=== PATIENT | male | born 1955 | race Caucasian/White ===

== ENCOUNTER 2017-03-18 05:56 | Emergency (ER) | payer BC ==
[2017-03-18 06:10] VITALS: RESP 18
[2017-03-18] MEDS ORDERED: SODIUM CHLORIDE 0.9% 500 ML IV STA (06:19)
[2017-03-18] MEDS ORDERED: SODIUM CHLORIDE 0.9% 1,000 ML IV STA ×2 (06:19)
[2017-03-18] MEDS ORDERED: KETOROLAC 30 MG/ML 1 ML VIAL IVP STA (06:19)
[2017-03-18] MEDS ORDERED: MORPHINE SULFATE 10 MG/ML SYRINGE IV STA (06:19)
--- NOTE | 2017-03-18 06:54 | ED ---
General Adult HPI - General Chief complaint: Abdominal Pain Stated complaint: Male Time Seen by Provider: 03/18/17 06:19 Source: patient, RN notes reviewed, old records reviewed Mode of arrival: ambulatory Limitations: no limitations - History of Present Illness Initial comments: This is a 7-year-old male to the ER for evaluation of severe 5 pain. Left- sided flank pain or groin pain radiating to storeroom area. Patient also admits to being blood. Patient has no prior history of similar complaints. No trauma no fever. Patient has medical history of high cholesterol, no medical complaints. No blood thinners. No trauma. Patient denies any other bowel pain no nausea or vomiting. Patient states is the worst pain of his life. This started just prior to arrival sudden onset - Related Data Home Medications Medication Instructions Recorded Confirmed Acetaminophen [Tylenol] 1,000 - 1,500 mg PO QAM 03/18/17 03/18/17 [facility] 1 tab PO DAILY 03/18/17 03/18/17 Previous Rx's Medication Instructions Recorded Ciprofloxacin HCl [Cipro] 500 mg PO Q12HR #20 tablet 03/18/17 HYDROcodone/APAP 5-325MG [[place] 1 tab PO Q6HR PRN #30 tab 03/18/17 5-325] Ondansetron Odt [Zofran ODT] 4 mg PO Q8HR PRN #30 tab 03/18/17 metroNIDAZOLE [Flagyl] 500 mg PO TID #30 tab 03/18/17 Allergies Allergy/AdvReac Type Severity Reaction Status Date / Time No Known Allergies Allergy Verified 03/18/17 07:13 Review of Systems ROS Statement: Those systems with pertinent positive or pertinent negative responses have been documented in the HPI. ROS Other: All systems not noted in ROS Statement are negative. Past Medical History Past Medical History: Hyperlipidemia History of Any Multi-Drug Resistant Organisms: None Reported Past Surgical History: Orthopedic Surgery Additional Past Surgical History / Comment(s): Shoulder surgery, knee surgery Past Psychological History: No Psychological Hx Reported Smoking Status: Current every day smoker Past Alcohol Use History: None Reported Past Drug Use History: None Reported General Exam Limitations: no limitations General appearance: alert, in no apparent distress Head exam: Present: atraumatic, normocephalic, normal inspection Eye exam: Present: normal appearance, PERRL, EOMI. Absent: scleral icterus, conjunctival injection, periorbital swelling ENT exam: Present: normal exam, mucous membranes moist Neck exam: Present: normal inspection. Absent: tenderness, meningismus, lymphadenopathy Respiratory exam: Present: normal lung sounds bilaterally. Absent: respiratory distress, wheezes, rales, rhonchi, stridor Cardiovascular Exam: Present: regular rate, normal rhythm, normal heart sounds. Absent: systolic murmur, diastolic murmur, rubs, gallop, clicks GI/Abdominal exam: Present: soft, normal bowel sounds. Absent: distended, tenderness, guarding, rebound, rigid Extremities exam: Present: normal inspection, full ROM, normal capillary refill. Absent: tenderness, pedal edema, joint swelling, calf tenderness Back exam: Present: normal inspection Neurological exam: Present: alert, oriented X3, CN II-XII intact Psychiatric exam: Present: normal affect, normal mood Skin exam: Present: warm, dry, intact, normal color. Absent: rash Course Vital Signs 03/18/17 03/18/17 06:05 07:55 Temperature 97.8 F 98.8 F Pulse Rate 98 86 Respiratory 18 18 Rate Blood Pressure 172/106 132/73 O2 Sat by Pulse 98 97 Oximetry Medical Decision Making - Medical Decision Making 61 male the ER with flank pain without rating to groin. Positive diverticulitis passed kidney stone. Patient be treated with pain control antibiotics and decrease in diet, patient admitted for adequate pain control states he feels long can be discharged home - Lab Data Result diagrams: 03/18/17 06:46 03/18/17 06:46 Lab Results 03/18/17 03/18/17 03/18/17 Range/Units 06:11 06:46 06:46 WBC 16.7 H (3.8-10.6) k/uL RBC 5.25 (4.30-5.90) m/uL Hgb 15.9 (13.0-17.5) gm/dL Hct 47.6 (39.0-53.0) % MCV 90.6 (80.0-100.0) fL MCH 30.3 (25.0-35.0) pg MCHC 33.5 (31.0-37.0) g/dL RDW 12.8 (11.5-15.5) % Plt Count 246 (150-450) k/uL Neutrophils % 84 % Lymphocytes % 7 % Monocytes % 6 % Eosinophils % 2 % Basophils % 0 % Neutrophils # 14.1 H (1.3-7.7) k/uL Lymphocytes # 1.1 (1.0-4.8) k/uL Monocytes # 1.0 (0-1.0) k/uL Eosinophils # 0.4 (0-0.7) k/uL Basophils # 0.1 (0-0.2) k/uL Sodium 141 (137-145) mmol/L Potassium 4.0 (3.5-5.1) mmol/L Chloride 105 (98-107) mmol/L Carbon Dioxide 27 (22-30) mmol/L Anion Gap 9 mmol/L BUN 9 (9-20) mg/dL Creatinine 1.10 (0.66-1.25) mg/dL Est GFR (MDRD) Af Amer >60 (>60 ml/min/1.73 sqM) Est GFR (MDRD) Non-Af >60 (>60 ml/min/1.73 sqM) Glucose 114 H (74-99) mg/dL Calcium 10.0 (8.4-10.2) mg/dL Total Bilirubin 0.6 (0.2-1.3) mg/dL AST 37 (17-59) U/L ALT 66 (21-72) U/L Alkaline Phosphatase 96 (38-126) U/L Total Protein 7.8 (6.3-8.2) g/dL Albumin 4.8 (3.5-5.0) g/dL Amylase 46 (30-110) U/L Lipase 105 (23-300) U/L Urine Color Dark Red Urine Appearance Turbid (Clear) Urine pH 5.5 (5.0-8.0) Ur Specific [place] 1.016 (1.001-1.035) Urine Protein 2+ H (Negative) Urine Glucose (UA) Negative (Negative) Urine Ketones Negative (Negative) Urine Blood Large H (Negative) Urine Nitrite Negative (Negative) Urine Bilirubin Negative (Negative) Urine Urobilinogen <2.0 (<2.0) mg/dL Ur Leukocyte Esterase Large H (Negative) Urine RBC >182 H (0-5) /hpf Urine WBC >182 H (0-5) /hpf - Radiology Data Radiology results: report reviewed (CT abdomen and pelvis was positive colitis) , image reviewed Disposition Clinical Impression: Abdominal pain, Diverticulitis, Calculus of left kidney Disposition: HOME SELF-CARE Condition: Good Instructions: Diverticulitis (ED) Prescriptions: Ciprofloxacin HCl [Cipro] 500 mg PO Q12HR #20 tablet HYDROcodone/APAP 5-325MG [[place] 5-325] 1 tab PO Q6HR PRN #30 tab PRN Reason: Pain metroNIDAZOLE [Flagyl] 500 mg PO TID #30 tab Ondansetron Odt [Zofran ODT] 4 mg PO Q8HR PRN #30 tab PRN Reason: nausea/vomiting Referrals: David Murphy MD [Primary Care Provider] - 1-2 days Nestor Glez MD [STAFF PHYSICIAN] - 1-2 days
[2017-03-18 06:56] LABS: Basophils # (A) 0.1 k/uL (0-0.2); Basophils % (A) 0 %; CH 31.2; CHCM 34.5; Eosinophils # (A) 0.4 k/uL (0-0.7); Eosinophils % (A) 2 %; HCT 47.6 % (39.0-53.0); HDW 2.54; HGB 15.9 gm/dL (13.0-17.5); Luc # (Auto) 0.14; Luc % (Auto) 1; Lymphocytes # (A) 1.1 k/uL (1.0-4.8); Lymphocytes % (A) 7 %; MCH 30.3 pg (25.0-35.0); MCHC 33.5 g/dL (31.0-37.0); MCV 90.6 fL (80.0-100.0); Mean Platelet Volume 7.2; Monocytes % (A) 6 %; Neutrophils # (A) 14.1 k/uL (1.3-7.7); Neutrophils % (A) 84 %; RBC 5.25 m/uL (4.30-5.90); RDW 12.8 % (11.5-15.5); WBC 16.7 k/uL (3.8-10.6); WBC (Perox) 15.72
[2017-03-18 07:00] LABS: Appearance,Urine Turbid (Clear); Bilirubin,Urine Negative (Negative); Glucose,Urine (UA) Negative (Negative); Ketones,Urine Negative (Negative); Leukocyte Esterase,Urine Large (Negative); Nitrite,Urine Negative (Negative); PH, Urine 5.5 (5.0-8.0); Particle Count 15719; Protein,Urine 2+ (Negative); RBC,Urine >182 /hpf (0-5); Specific Gravity,Urine 1.016 (1.001-1.035); UA Billing (MACRO vs. MICRO) MICRO; Urobilinogen,Urine <2.0 mg/dL (<2.0); WBC,Urine >182 /hpf (0-5)
--- NOTE | 2017-03-18 07:38 | CT ---
EXAMINATION TYPE: CT abdomen pelvis wo con DATE OF EXAM: 03/18/2017 COMPARISON: NONE HISTORY: gross hematuria, pelvic pain CT DLP: 1129.9 mGycm Automated exposure control for dose reduction was used. TECHNIQUE: Helical acquisition of images was performed from the lung bases through the pelvis. FINDINGS: LUNG BASES: No significant abnormality is appreciated. LIVER/GB: Unremarkable unenhanced morphology. No cholelithiasis. PANCREAS: No significant abnormality is seen. No ductal dilatation. SPLEEN: No significant abnormality is seen. No splenic enlargement. ADRENALS: No significant abnormality is seen. KIDNEYS: There is a macrolobulated contour of the renal parenchyma with few areas of cortical retract ion from prior scarring. More rounded lobulated possible renal lesion within the anterior left upper pole measuring approximately 1.3 cm is ill-defined given the lack of intravenous contrast. There is n o evidence of nephrolithiasis or hydronephrosis within either kidney. No ureteral calculi or hydroure ter. Urinary bladder is decompressed. No urethral calculi its visualized portions. FREE AIR: No free air is visualized RETROPERITONEAL ADENOPATHY: None visualized URINARY BLADDER: Decompressed without calculi. PELVIC ADENOPATHY: None visualized. OSSEOUS STRUCTURES: Mild multilevel degenerative change of the lumbosacral spine is noted. BOWEL: Short segment bowel wall thickening and mild pericolonic fat stranding abutting the lateral co nal fascia is seen of the descending colon just distal to the splenic flexure. No evidence of free ai r or free fluid. Numerous other sigmoid and descending colonic diverticula are seen without pericolon ic fat stranding. No surrounding fluid collection to suggest abscess is seen. IMPRESSION: 1. ACUTE DESCENDING COLONIC DIVERTICULITIS WITHOUT ABSCESS OR FREE AIR. 2. NO EVIDENCE OF NEPHROLITHIASIS, HYDRONEPHROSIS OR OBSTRUCTIVE UROPATHY. 3. POSSIBLE LEFT UPPER POLE ANTERIOR CORTICALLY-BASED PARTIALLY EXOPHYTIC LEFT RENAL LESION MEASURING APPROXIMATELY 1.3 CM, HOWEVER THERE IS A MACROLOBULATED CONTOUR OF BOTH KIDNEYS AND THIS COULD BE A PSEUDOLESION IT IS INCOMPLETELY CHARACTERIZED WITHOUT CONTRAST. RENAL ULTRASOUND OR DYNAMIC ENHANC ED CT COULD BE PERFORMED FOR FURTHER EVALUATION.
[2017-03-18] MEDS ORDERED: ONDANSETRON 4 MG/2 ML VIAL IVP STA (07:43)
[2017-03-18] MEDS ORDERED: PANTOPRAZOLE 40 MG/10 ML VIAL IVP STA (07:43)
[2017-03-18] MEDS ORDERED: CIPROFLOXACIN HCL 500 MG TAB PO STA (07:43)
[2017-03-18] MEDS ORDERED: metroNIDAZOLE 500 MG TAB PO STA (07:43)
[2017-03-18 07:45] LABS: Glucose 114 mg/dL (74-99); Total Protein 7.8 g/dL (6.3-8.2)
[2017-03-18 07:48] LABS: ALT 66 U/L (21-72); AST 37 U/L (17-59); Alkaline Phosphatase 96 U/L (38-126); Amylase 46 U/L (30-110); Anion Gap 9 mmol/L; Blood Urea Nitrogen 9 mg/dL (9-20); Carbon Dioxide 27 mmol/L (22-30); Chloride 105 mmol/L (98-107); Non-African American GFR(MDRD) >60 (>60 ml/min/1.73 sqM); Sodium 141 mmol/L (137-145); Total Bilirubin 0.6 mg/dL (0.2-1.3)
[2017-03-18 07:56] VITALS: BP 132/73; PULSE 86; TEMP 98.8
--- NOTE | 2017-03-18 07:58 | XR ---
EXAMINATION TYPE: XR KUB DATE OF EXAM: 03/18/2017 7:30 AM CLINICAL HISTORY: Left lower quadrant abdominal pain. TECHNIQUE: Single supine KUB image of the abdomen is obtained. COMPARISON: None. FINDINGS: Scattered gas is seen in non-distended small bowel loops. Few air-fluid levels within the r ight lower quadrant are located within nondilated bowel and are within physiologic number. Gas and fe waleska material is seen in non-distended colon. There is no abnormal calcification appreciated. The lung bases are clear and the osseous structures are intact. No pneumoperitoneum. IMPRESSION: Nonobstructive bowel gas pattern.
== END 2017-03-18 07:56 | disposition home or self-care (01) ==
LOC: SUPCPDRO 05:56 → EC 05:56
DX: K57.32 Diverticulitis of large intestine without perforation or abscess without bleeding (principal); N20.0 Calculus of kidney; F17.200 Nicotine dependence, unspecified, uncomplicated; Z79.899 Other long term (current) drug therapy
CPT/HCPCS: 36415; 80053; 82150; 83690; 85025; 81001; 87086; 74000; 74176; 99285; 96374; 96375; 96361; J2270; J1885; 87077; 87186

== ENCOUNTER → 2017-06-11 | Outpatient (CLI) | payer BC ==
--- NOTE | 2017-06-11 16:13 | CT ---
EXAMINATION TYPE: CT abdomen pelvis w con DATE OF EXAM: 06/11/2017 COMPARISON: 03/18/2017 HISTORY: Colon cancer CT DLP: 1525.9 mGycm CONTRAST: CT scan of the abdomen and pelvis is performed with Oral Contrast and with IV Contrast, patient injec lance with 100 mL of Omnipaque 300. FINDINGS: LUNG BASES-: No visible nodule. No infiltrate. LIVER/GB: No calcified gallstones. Hepatic steatosis noted. No space occupying hepatic lesion. Bhavesh iary tree is of normal caliber. PANCREAS: No inflammation. No distinct mass. SPLEEN: No splenic enlargement. No lesion seen. ADRENALS: No nodule. No thickening. KIDNEYS/BLADDER: No hydronephrosis. No nephrolithiasis. No distinct renal mass. Urinary bladder g rossly unremarkable. BOWEL: Persistent wall thickening involving the proximal descending colon. Recurrent neoplasm is not excluded. Direct visualization is advised. The appendix is not clearly visualized. Remaining Normal bowel caliber. No inflammation. GENITAL ORGANS: No gross abnormality. LYMPH NODES: No greater than 1cm abdominal or pelvic lymph nodes are appreciated. AORTA: No significant abnormality. OSSEOUS STRUCTURES: No significant abnormality is seen. OTHER: No significant additional abnormality is seen. IMPRESSION: 1. Persistent wall thickening involving the proximal descending colon. Recurrent neoplasm is not excl uded. Direct visualization is advised. 2. Mild hepatic steatosis.
== END | disposition home or self-care (01) ==
LOC: RADCTMAIN 15:35
PROVIDERS: ATTEND Surgery Plastic and Reconstructive Surgery
DX: C18.9 Malignant neoplasm of colon, unspecified (principal); K76.0 Fatty (change of) liver, not elsewhere classified
CPT/HCPCS: 74177; Q9967

== ENCOUNTER → 2017-06-14 | Outpatient (CLI) | payer BC ==
--- NOTE | 2017-06-14 12:10 | FL ---
EXAMINATION TYPE: FL barium enema DATE OF EXAM: 06/14/2017 COMPARISON: NONE HISTORY: Abnormal CT and colonoscopy TECHNIQUE: A single contrast barium enema study is performed. FINDINGS: [employer] Intelligence Technician view of the abdomen shows overall non-obstructive bowel gas pattern. There is circumferential narrowing within the proximal descending colon at the splenic flexure compat ible with the patient's reported cancer. Contrast was able to be refluxed through this region. No obstruction was unable to hold the catheter tip and this was expelled during the exam. There is ne juliet complete filling of the ascending colon at that time so the tip was not replaced and the exam wa s continued. Multiple overhead radiographs and fluoroscopic spot imaging was performed. The presacral space is normal. Multiple diverticuli are present throughout the colon. However appears to be the cecum is normal. There is redundancy at the hepatic flexure. No additional areas of circum ferential narrowing are present. 1 minute 16 seconds fluoroscopy time was provided for procedure. 30 images are obtained. IMPRESSION: 1. Circumferential narrowing at the Roxanol descending colon at the splenic flexure compatible with a neoplasm. 2. Diverticulosis without evidence of acute diverticulitis.
== END ==
LOC: RADFLMAIN 07:32
PROVIDERS: ATTEND Surgery Plastic and Reconstructive Surgery
DX: C18.9 Malignant neoplasm of colon, unspecified (principal); K57.90 Diverticulosis of intestine, part unspecified, without perforation or abscess without bleeding
CPT/HCPCS: 74270

== ENCOUNTER → 2017-06-28 | Outpatient (CLI) | payer BC ==
[2017-06-28 10:43] LABS: HCT 48.7 % (39.0-53.0); HGB 15.8 gm/dL (13.0-17.5); MCH 28.8 pg (25.0-35.0); MCHC 32.5 g/dL (31.0-37.0); MCV 88.7 fL (80.0-100.0); Mean Platelet Volume 7.6; Platelet Count 234 k/uL (150-450); RBC 5.49 m/uL (4.30-5.90); RDW 13.1 % (11.5-15.5); WBC 6.9 k/uL (3.8-10.6)
[2017-06-28 11:09] LABS: Anion Gap 10 mmol/L; Blood Urea Nitrogen 13 mg/dL (9-20); Carbon Dioxide 27 mmol/L (22-30); Chloride 107 mmol/L (98-107); Potassium 4.6 mmol/L (3.5-5.1); Sodium 144 mmol/L (137-145)
== END | disposition home or self-care (01) ==
LOC: LABPAT 10:01
PROVIDERS: ATTEND Internal Medicine Interventional Cardiology
DX: Z01.812 Encounter for preprocedural laboratory examination (principal); I25.10 Atherosclerotic heart disease of native coronary artery without angina pectoris
CPT/HCPCS: 36415; 80051; 82565; 84520; 85027

== ENCOUNTER 2017-07-05 10:24 | Day surgery (SDC) | payer BC ==
[2017-07-01 11:26] VITALS: BMI 35.4
[~2017-07-05 10:24] MED LIST: ALPRAZolam 0.25 MG TAB PO PRN; ASPIRIN 325 MG TAB PO ONE; SODIUM CHLORIDE 0.9% 1,000 ML in EMPTY BAG 1 BAG IV ONE
[2017-07-05] MEDS ORDERED: LIDOCAINE 2% INJ 20 MG/ML (20 ML MDV) ONE (12:37)
[2017-07-05] MEDS ORDERED: HEPARIN SODIUM 1,000 UN/ML (10ML VL) ONE (12:37)
[2017-07-05] MEDS ORDERED: MIDAZOLAM 2 MG/2 ML VIAL ONE (12:37)
[2017-07-05] MEDS ORDERED: VERAPAMIL 2.5 MG/ML 2 ML AMP ONE (12:37)
[2017-07-05] MEDS ORDERED: MIDAZOLAM 2 MG/2 ML VIAL IVP ONE (12:50)
[2017-07-05] MEDS ORDERED: LIDOCAINE 2% INJ 20 MG/ML SQ ONE ×2 (12:56→12:58)
[2017-07-05] MEDS: VERAPAMIL SYRINGE (5 MG/10 ML) INTRAARTER ONE ×2 (12:58→13:07)
[2017-07-05] MEDS ORDERED: IOHEXOL 350 MG/ML 125ML BOTTLE INJ ONE (13:08)
[2017-07-05] MEDS ORDERED: RX INFO: IV CONTRAST WAS GIVEN 1 EACH MISC MISCELLANE PRN (13:13)
[2017-07-05] MEDS ORDERED: SODIUM CHLORIDE 0.9% 1,000 ML IV SCH (13:15)
[2017-07-05 13:37] VITALS: RESP 16; TEMP 97
--- NOTE | 2017-07-05 14:11 | CC ---
CARDIAC CATHETERIZATION REPORT DATE OF SERVICE: 07/05/2017 PERFORMING PHYSICIAN: Naresh Rowley MD, Sap Bpc Architect. PROCEDURE PERFORMED: 1. Selective right and left coronary angiogram. 2. Left heart catheterization. INDICATION: This is a pleasant 61-year-old gentleman who was going to have a colon surgery and underwent myocardial perfusion imaging stress test and that revealed ischemia. In view of that, heart catheterization was recommended. APPROACH: Right radial artery. COMPLICATION: None. LEVEL OF SEDATION: Moderate with sedation length of 14 minutes. PROCEDURE DESCRIPTION: After obtaining an informed consent, the patient was brought to the Cardiac Metal Dealer. The right radial artery was cannulated using micropuncture technique, the micropuncture wire passed easily, then I placed a 6-Ukrainian sheath in the right radial artery. After that, I did give patient 2 mg of verapamil IA and 8000 units of heparin IV. After that, I did selective right and left coronary angiogram using JR4 and JL3.5 catheters. The procedure was completed without any complication. SELECTIVE CORONARY ANGIOGRAM: 1. The right coronary artery is a large caliber vessel and it is a dominant vessel. The RCA has mild disease only. It bifurcates into PDA and PLV branches, both are angiographically normal. 2. The left main is angiographically normal. It bifurcates into the circumflex and left anterior descending artery. 3. The left circumflex is a large caliber vessel. It is a nondominant vessel with the proximal circ is angiographically normal. It gives rise into a large OM branch which bifurcates into two subbranches and that OM has mild disease only and the circumflex continued after that, a small caliber vessel in the AV groove. 4. The LAD, the proximal LAD appeared to be angiographically normal. The mid LAD has mild disease only and gives rise into a diagonal branch which seems to be moderate- size and the LAD distally appeared to be angiographically normal. HEMODYNAMICS: The left ventricular end-diastolic pressure was 8 mmHg and no gradient was identified across the aortic valve. CONCLUSION: Mild nonobstructive coronary artery disease. POSTPROCEDURE MANAGEMENT: Medical treatment. MMTOML / IJN: [id number] /
--- NOTE | 2017-07-05 15:20 | LTR ---
DATE OF SERVICE: 07/05/2017 RE: José Luis Cohen. Dear Dr. Murphy; Mr. José Luis Cohen underwent heart catheterization and that revealed mild nonobstructive coronary artery disease. I want to thank you for allowing me to participate in his care and please do not hesitate to call if you have any question or concern. Sincerely, MD EHRMILO Mcgregor / FEDEN: [id number] /
[2017-07-05 16:31] VITALS: BP 134/84; PULSE 62
== END 2017-07-05 18:29 | disposition home or self-care (01) ==
LOC: CATHCVL 10:24 → 3OBS 13:12 → CATHCVL 18:29
PROVIDERS: ATTEND Internal Medicine Interventional Cardiology
DX: I25.110 Atherosclerotic heart disease of native coronary artery with unstable angina pectoris (principal); F17.210 Nicotine dependence, cigarettes, uncomplicated; C18.9 Malignant neoplasm of colon, unspecified
CPT/HCPCS: 93458; C1894; C1769; J2001; J2250; J1644; Q9967

== ENCOUNTER 2017-07-15 10:27 | Inpatient (IN) | payer BC ==
[2017-07-09 12:13] VITALS: BMI 35.4
[~2017-07-15 10:27] MED LIST changes: -ALPRAZolam 0.25 MG TAB PO PRN; -ASPIRIN 325 MG TAB PO ONE; +DEXAMETHASONE SOD PHOSPHATE 10 MG/ML 1 ML VIAL IV ONE; +HEPARIN SODIUM,PORCINE 5,000 UNIT/ML 1 ML VIAL SQ ONE; +HYDROmorphone 0.5 MG/0.5 ML SYRINGE IVP PRN; +ONDANSETRON 4 MG/2 ML VIAL IVP ONE; -SODIUM CHLORIDE 0.9% 1,000 ML in EMPTY BAG 1 BAG IV ONE; +ceFAZolin IN SWFI 2 GM/20 ML SYRINGE IVP ONE; +metroNIDAZOLE-NS PMX 500 MG in SALINE 1 100ML.BAG IVPB ONE
[2017-07-15] MEDS: LACTATED RINGERS 1,000 ML IV SCH (11:03)
[2017-07-15] MEDS ORDERED: LIDOCAINE 1% 20 ML VIAL (10MG/ML) FOR IV START INTRADERMA ONE (11:03)
[2017-07-15] MEDS ORDERED: ACETAMINOPHEN TAB 500 MG TAB PO ONE (11:57)
[2017-07-15] MEDS ORDERED: ALVIMOPAN 12 MG CAPSULE PO ONE (11:57)
[2017-07-15] MEDS ORDERED: NALOXONE 0.4 MG/ML 1 ML VIAL IV PRN (12:05)
[2017-07-15] MEDS ORDERED: SODIUM CHLORIDE 0.9% EPIDURAL PRN (12:05)
[2017-07-15] MEDS ORDERED: BUPIVACAINE 0.5% EPIDURAL PRN (12:05)
[2017-07-15] MEDS ORDERED: HYDROMORPHONE EPIDURAL PRN (12:05)
[2017-07-15] MEDS ORDERED: BUPIVACAINE (PF) 0.25% 30 ML VIAL SQ ONE (13:52)
[2017-07-15] MEDS ORDERED: LACTATED RINGERS 1,000 ML IV ONE ×3 (15:35→21:01)
[2017-07-15] MEDS ORDERED: diphenhydrAMINE 50 MG/ML 1 ML VIAL IVP ONE (21:33)
[2017-07-15] MEDS ORDERED: ceFAZolin IN SWFI 2 GM/20 ML SYRINGE IVP ONE (21:40)
--- NOTE | 2017-07-15 21:49 | P.PCN ---
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 Fixed tumor involving the proximal descending colon highly suspicious for stage III disease. 2. No peritoneal metastases with liver unremarkable. 3. Poor colon prep causing contaminated case 4. Initial leak test performed with reinforcement of linear anastomosis at 3: 00 with omental patch buttressing of 3-0 silk 5. Isoperistaltic end-end anastomosis with over 30 mm lumen 6. Finally leak test confirmed intact anastomosis with easy insufflation of the descending colon 7. 5 mm port along the left upper quadrant 8. All robotic ports positioned from right upper quadrant to left lower quadrant with stapler placed along the right upper quadrant 9. Because contamination from stool, Bakari-Ocampo drain placed into the pelvis 10. Intraoperative findings described the patient's family including fixed tumor to the peritoneum highly suspicious for stage III disease
[2017-07-15] MEDS ORDERED: BENZOCAINE/MENTHOL LOZENG 1 EACH LOZENGE MUCOUS MEM PRN (21:50)
[2017-07-15] MEDS ORDERED: LORazepam 2 MG/ML INJ IV PRN (21:54)
[2017-07-15] MEDS: METOCLOPRAMIDE 5 MG/ML 2 ML VIAL IVP SCH (23:46)
[2017-07-16] MEDS: D5-0.45% NACL WITH KCL 20MEQ/L 1,000 ML IV SCH ×3 (03:58→12:40)
[2017-07-16] MEDS: METOCLOPRAMIDE 5 MG/ML 2 ML VIAL IVP SCH ×4 (05:48→23:48)
[2017-07-16 07:31] LABS: Basophils % (A) 0 %; Eosinophils % (A) 0 %; HGB 14.2 gm/dL (13.0-17.5); Lymphocytes # (A) 0.6 k/uL (1.0-4.8); Lymphocytes % (A) 5 %; MCHC 34.6 g/dL (31.0-37.0); MCV 86.7 fL (80.0-100.0); Mean Platelet Volume 8.1; Monocytes # (A) 0.8 k/uL (0-1.0); Monocytes % (A) 6 %; Neutrophils # (A) 11.8 k/uL (1.3-7.7); Neutrophils % (A) 88 %; Platelet Count 184 k/uL (150-450); RBC 4.73 m/uL (4.30-5.90); RDW 13.4 % (11.5-15.5); WBC 13.4 k/uL (3.8-10.6)
[2017-07-16] MEDS: ALVIMOPAN 12 MG CAPSULE PO SCH ×2 (07:59→20:59)
[2017-07-16] MEDS: HEPARIN SODIUM,PORCINE 5,000 UNIT/ML 1 ML VIAL SQ SCH ×2 (07:59→20:59)
[2017-07-16 08:00] LABS: Anion Gap 8 mmol/L; Blood Urea Nitrogen 13 mg/dL (9-20); Calcium 8.4 mg/dL (8.4-10.2); Carbon Dioxide 27 mmol/L (22-30); Chloride 104 mmol/L (98-107); Glucose 152 mg/dL (74-99); Potassium 4.2 mmol/L (3.5-5.1); Sodium 139 mmol/L (137-145)
[2017-07-16] MEDS ORDERED: HYDROMORPHONE EPIDURAL PRN (09:26)
[2017-07-16] MEDS ORDERED: NALOXONE 0.4 MG/ML 1 ML VIAL IV PRN (09:26)
[2017-07-16] MEDS ORDERED: BUPIVACAINE 0.5% EPIDURAL PRN (09:26)
[2017-07-16] MEDS ORDERED: SODIUM CHLORIDE 0.9% EPIDURAL PRN (09:26)
--- NOTE | 2017-07-16 09:26 | P.PN ---
Progress Note - Text Anesthesia POD 1. Status Post robotic-assisted laparoscopic left colectomy under general endotracheal anesthesia with an epidrual catheter placed at L3 for post surgical pain releif. VAS (0, 2) with Bupivicaine 0.0625 % and Dilaudid 30 mcg / cc running at 8 cc / hr. Lower extremity strength (1/4) on the left and (2, 4) on the right. Minimal sedation. Site looks OK. Plan to reduce bupivacaine concentration to 0.05%.
--- NOTE | 2017-07-16 09:57 | P.PN ---
<Denise Huynh - Last Filed: 07/16/17 11:06> Subjective Progress Note Date: 07/16/17 A 61-year-old male seen and examined at bedside this morning sitting up in bed tolerating clear liquid diet. Chief complaint this morning is numbness and tingly sensation to the left lower extremity. Epidural in place per anesthesia for pain control indwelling Valente catheter in place. ESTELA drain left lower quadrant bloody drainage noted in the bulb remains afebrile the white counts morning 13.4. Patient states passing gas no stool Robotic-assisted da Keeley X I left colectomy with intraoperative flexible sigmoidoscopydone on July 15 for proximal descending colon cancer, sigmoid colon, chronic constipation Objective - Vital Signs Vital signs: Vital Signs Temp 97.9 F 07/16/17 07:45 Pulse 95 07/16/17 07:45 Resp 16 07/16/17 07:45 BP 108/73 07/16/17 07:45 Pulse Ox 92 L 07/16/17 07:45 Intake & Output 07/15/17 07/16/17 07/16/17 18:59 06:59 18:59 Intake Total 3100 700 180 Output Total 960 60 Balance 3100 -260 120 Weight 108.862 kg Intake: IV 3100 700 Oral 180 Output: Drainage 60 Lower Abdomen 60 Urine 810 Estimated Blood Loss 150 Other: Voiding Method Indwelling Catheter Indwelling Catheter - Exam Physical exam Pleasant 61-year-old woman sitting up in bed using an incentive spirometer. Able to achieve 1000. States numbness to the left lower extremity epidural in place Lungs adequate air movement bilaterally cough noted heart S1-S2 audible regular Abdomen soft surgical tenderness appropriate not distended. Hypoactive bowel tones Valente catheter in place dressings to surgical site dry no nausea no vomiting tolerating clear liquid Extremities Venodyne's on to the bilateral lower extremities decreased sensation to the left lower extremity palpable pulses - Labs CBC & Chem 7: 07/16/17 06:53 07/16/17 06:53 Labs: Abnormal Lab Results - Last 24 Hours (Table) 07/16/17 07/16/17 Range/Units 06:53 06:53 WBC 13.4 H (3.8-10.6) k/uL Neutrophils # 11.8 H (1.3-7.7) k/uL Lymphocytes # 0.6 L (1.0-4.8) k/uL Glucose 152 H (74-99) mg/dL Assessment and Plan Assessment: Impression Proximal descending colon cancer, diverticulosis sigmoid colon, chronic constipation Robotic-assisted da Keeley X I left colectomy with intraoperative flexible sigmoidoscopy Fixed tumor involving the proximal descending colon highly suspicious for stage III disease. Plan Remove the epidural catheter now Start Flomax 0.8mg now Remove indwelling Valente catheter once the epidural catheter is removed Continue postop surgical care Increase activity Epidural per anesthesia for pain control DVT and GI prophylaxis Continue clear liquid diet Follow up on path report Continue IV Flagyl as ordered Prepped for discharge soon The above impression and plan of care have been discussed and directed by signing physician. Denise Huynh nurse practitioner acting as scribe for signing physician. <Charissa Krause N - Last Filed: 07/17/17 12:12> Objective - Vital Signs Vital signs: Vital Signs Temp 98.0 F 07/17/17 07:00 Pulse 106 H 07/17/17 09:46 Resp 16 07/17/17 09:46 BP 114/71 07/17/17 09:46 Pulse Ox 100 07/17/17 09:46 Intake & Output 07/16/17 07/17/17 07/17/17 18:59 06:59 18:59 Intake Total 1780 1537.5 0 Output Total 990 790 Balance 790 747.5 0 Intake: Intake, IV Titration 1000 1537.5 Amount D5-0.45% NaCl with KCl 1000 1437.5 20Meq/l 1,000 ml @ 125 mls/hr IV .Q8H DAYANA Rx#: [id number] metroNIDAZOLE-NS PMX 500 100 mg In Saline 1 100ml.bag @ 100 mls/hr IVPB Q8HR DAYANA Rx#:[id number] Oral 780 0 Output: Drainage 90 40 Lower Abdomen 90 40 Urine 900 750 Straight 600 Uretheral (Valente) 900 Other: Voiding Method Toilet Urinal Indwelling Catheter Self-Catheterization # Voids 1 # Bowel Movements 1 - Labs CBC & Chem 7: 07/17/17 06:53 07/17/17 08:50 Labs: Abnormal Lab Results - Last 24 Hours (Table) 07/17/17 07/17/17 07/17/17 Range/Units 06:53 06:53 08:50 WBC 14.5 H (3.8-10.6) k/uL Neutrophils # 11.7 H (1.3-7.7) k/uL Monocytes # 1.2 H (0-1.0) k/uL BUN 8 L (9-20) mg/dL Glucose 130 H 146 H (74-99) mg/dL Total Protein 6.0 L (6.3-8.2) g/dL Assessment and Plan (1) Malignant neoplasm of descending colon Current Visit: Yes Status: Acute Code(s): C18.6 - MALIGNANT NEOPLASM OF DESCENDING COLON SNOMED Code(s): 374859053 (2) Morbid obesity due to excess calories Current Visit: Yes Status: Acute Code(s): E66.01 - MORBID (SEVERE) OBESITY DUE TO EXCESS CALORIES SNOMED Code(s): 876607926 (3) Tobacco abuse Current Visit: Yes Status: Acute Code(s): Z72.0 - TOBACCO USE SNOMED Code( s): 842715102 (4) Epigastric abdominal pain Current Visit: Yes Status: Acute Code(s): R10.13 - EPIGASTRIC PAIN SNOMED Code(s): 02026789
[2017-07-16] MEDS: ceFAZolin IN SWFI 2 GM/20 ML SYRINGE IVP SCH ×3 (10:01→23:49)
[2017-07-16] MEDS: metroNIDAZOLE-NS PMX 500 MG in SALINE 1 100ML.BAG IVPB SCH ×3 (10:01→23:48)
[2017-07-16] MEDS: HYDROcodone/APAP 7.5-325MG 1 EACH TAB PO PRN ×2 (16:40→20:59)
[2017-07-16] MEDS ORDERED: TAMSULOSIN 0.4 MG CAP.ER.24H PO STA (17:57)
[2017-07-16] MEDS: ONDANSETRON 4 MG/2 ML VIAL IVP PRN (20:58)
[2017-07-17] MEDS: D5-0.45% NACL WITH KCL 20MEQ/L 1,000 ML IV SCH ×2 (00:17→06:22)
[2017-07-17] MEDS: METOCLOPRAMIDE 5 MG/ML 2 ML VIAL IVP SCH ×4 (06:22→23:38)
[2017-07-17] MEDS: HYDROcodone/APAP 7.5-325MG 1 EACH TAB PO PRN (06:39)
[2017-07-17 07:25] LABS: Basophils % (A) 0 %; Eosinophils # (A) 0.1 k/uL (0-0.7); Eosinophils % (A) 1 %; HCT 41.5 % (39.0-53.0); Lymphocytes # (A) 1.4 k/uL (1.0-4.8); Lymphocytes % (A) 9 %; MCH 29.7 pg (25.0-35.0); MCHC 33.8 g/dL (31.0-37.0); MCV 87.8 fL (80.0-100.0); Mean Platelet Volume 8.5; Monocytes # (A) 1.2 k/uL (0-1.0); Monocytes % (A) 8 %; Neutrophils # (A) 11.7 k/uL (1.3-7.7); Neutrophils % (A) 80 %; Platelet Count 173 k/uL (150-450); RBC 4.73 m/uL (4.30-5.90); RDW 13.3 % (11.5-15.5); WBC 14.5 k/uL (3.8-10.6)
[2017-07-17 07:54] LABS: Anion Gap 12 mmol/L; Blood Urea Nitrogen 9 mg/dL (9-20); Calcium 8.9 mg/dL (8.4-10.2); Carbon Dioxide 25 mmol/L (22-30); Chloride 101 mmol/L (98-107); Glucose 130 mg/dL (74-99); Potassium 4.2 mmol/L (3.5-5.1); Sodium 138 mmol/L (137-145)
[2017-07-17] MEDS ORDERED: NITROGLYCERIN SL TABS 0.4 MG TAB SUBLINGUAL STA (08:31)
[2017-07-17] MEDS ORDERED: MORPHINE SULFATE 4 MG/ML SYRINGE IVP STA (08:31)
[2017-07-17] MEDS ORDERED: ASPIRIN 325 MG TAB PO STA (08:32)
[2017-07-17] MEDS ORDERED: LEVOFLOXACIN 500MG-D5W PMX 500 MG in DEXTROSE/WATER 1 100ML.BAG IVPB STA (08:35)
[2017-07-17] MEDS ORDERED: MAG HYDROX/AL HYDROX/SIMETH 30 ML, HYOSCYAMINE ELIXIR 10 ML, CIMETIDINE HCL 300 MG, LID... PO ONE ×12 (08:36→09:15)
[2017-07-17] MEDS ORDERED: LORazepam 2 MG/ML INJ IV STA (08:38)
[2017-07-17] MEDS ORDERED: NITROGLYCERIN SL TABS 0.4 MG TAB SUBLINGUAL ONE (08:38)
[2017-07-17] MEDS ORDERED: PANTOPRAZOLE 40 MG/10 ML VIAL IVP ONE (08:39)
[2017-07-17] MEDS: ceFAZolin IN SWFI 2 GM/20 ML SYRINGE IVP SCH (08:49)
[2017-07-17] MEDS: LACTATED RINGERS 1,000 ML IV SCH (08:49)
[2017-07-17 09:15] LABS: ALT 34 U/L (21-72); AST 35 U/L (17-59); Albumin 3.5 g/dL (3.5-5.0); Alkaline Phosphatase 75 U/L (38-126); Anion Gap 10 mmol/L; Blood Urea Nitrogen 8 mg/dL (9-20); Calcium 8.6 mg/dL (8.4-10.2); Carbon Dioxide 27 mmol/L (22-30); Chloride 101 mmol/L (98-107); Glucose 146 mg/dL (74-99); Potassium 4.2 mmol/L (3.5-5.1); Sodium 138 mmol/L (137-145); Total Bilirubin 1.3 mg/dL (0.2-1.3)
[2017-07-17] MEDS: SODIUM CHLORIDE 0.9% 1,000 ML IV SCH (09:16)
--- NOTE | 2017-07-17 10:04 | XR ---
EXAMINATION TYPE: XR chest 2V DATE OF EXAM: 07/17/2017 HISTORY: chest pain. REFERENCE: NONE. FINDINGS: There is moderate free air under the right hemidiaphragm. I understand this patient recentl y had surgery. There is bibasilar atelectasis. The heart is upper limits of normal in size. No pleura l cyst fluid is seen. IMPRESSION: 1. MODERATE FREE INTRAPERITONEAL AIR. CORRELATE WITH RECENT SURGERY. 2. BIBASILAR ATELECTASIS. 3. BORDERLINE CARDIOMEGALY.
--- NOTE | 2017-07-17 12:12 | P.PN ---
Subjective Progress Note Date: 07/17/17 Patient seen and evaluated. I was notified by the nurse for chest pain. EKG and troponins obtained and are negative for acute OK. Patient had recent stress test less than 2 weeks ago negative for reversible ischemia. He had been doing well from his surgery including already passing flatus and having bowel movements since yesterday. He had been ambulating. He needed straight cath for urinary retention. He clarifies having acute epigastric pain that occured after breakfast this morning. No reports of moderate lower abdominal pain. No reports of fevers or chills. ESTELA drain has been serosanguinous. Objective - Vital Signs Vital signs: Vital Signs Temp 98.0 F 07/17/17 07:00 Pulse 106 H 07/17/17 09:46 Resp 16 07/17/17 09:46 BP 114/71 07/17/17 09:46 Pulse Ox 100 07/17/17 09:46 Intake & Output 07/16/17 07/17/17 07/17/17 18:59 06:59 18:59 Intake Total 1780 1537.5 0 Output Total 990 790 Balance 790 747.5 0 Intake: Intake, IV Titration 1000 1537.5 Amount D5-0.45% NaCl with KCl 1000 1437.5 20Meq/l 1,000 ml @ 125 mls/hr IV .Q8H [facility] Rx#: [id number] metroNIDAZOLE-NS PMX 500 100 mg In Saline 1 100ml.bag @ 100 mls/hr IVPB Q8HR [facility] Rx#:[id number] Oral 780 0 Output: Drainage 90 40 Lower Abdomen 90 40 Urine 900 750 Straight 600 Uretheral (Valente) 900 Other: Voiding Method Toilet Urinal Indwelling Catheter Self-Catheterization # Voids 1 # Bowel Movements 1 - Exam PHYSICAL EXAM: GENERAL: Well-developed pleasant male in mild distress. HEENT: No scleral icterus. Extraocular movements grossly intact. Moist buccal mucosa. NECK: Supple without lymphadenopathy. CHEST: Unlabored respirations. Equal bilateral excursions. CARDIOVASCULAR: Regular rate and rhythm. Distal 2+ pulses. ABDOMEN: Soft, mild distention. No peritoneal signs. Mild tenderness along the epigastrium. ESTELA serosanguinous. MUSCULOSKELETAL: No clubbing, cyanosis, or edema. SKIN: Good skin turgor. - Labs CBC & Chem 7: 07/17/17 06:53 07/17/17 08:50 Labs: Abnormal Lab Results - Last 24 Hours (Table) 07/17/17 07/17/17 07/17/17 Range/Units 06:53 06:53 08:50 WBC 14.5 H (3.8-10.6) k/uL Neutrophils # 11.7 H (1.3-7.7) k/uL Monocytes # 1.2 H (0-1.0) k/uL BUN 8 L (9-20) mg/dL Glucose 130 H 146 H (74-99) mg/dL Total Protein 6.0 L (6.3-8.2) g/dL - Imaging and Cardiology Chest x-ray: image reviewed (Free air noted along the diaphragm) Assessment and Plan (1) Malignant neoplasm of descending colon Current Visit: Yes Status: Acute Code(s): C18.6 - MALIGNANT NEOPLASM OF DESCENDING COLON SNOMED Code(s): 422458072 (2) Morbid obesity due to excess calories Current Visit: Yes Status: Acute Code(s): E66.01 - MORBID (SEVERE) OBESITY DUE TO EXCESS CALORIES SNOMED Code(s): 009966038 (3) Tobacco abuse Current Visit: Yes Status: Acute Code(s): Z72.0 - TOBACCO USE SNOMED Code( s): 181234598 (4) Epigastric abdominal pain Current Visit: Yes Status: Acute Code(s): R10.13 - EPIGASTRIC PAIN SNOMED Code(s): 82423190 Plan: 1. Additional studies were obtained including chest x-ray demonstrating moderate free air. Patient had recent robotic assisted laparoscopic colon resection. 2. Patient's previous studies including ultrasound of the abdomen also demonstrated gallstones which may also demonstrate acute onset epigastric abdominal pain.
--- NOTE | 2017-07-17 12:13 | P.PN ---
Progress Note - Text Progress Note Date: 07/16/17 Patient seen and evaluated. Reports doing extremely well. He is passing flatus and having bowel movements. No reports of abdominal pain. Valente catheter was discontinued and is pending urination. Possible discharge tomorrow.
[2017-07-17] MEDS: metroNIDAZOLE-NS PMX 500 MG in SALINE 1 100ML.BAG IVPB SCH ×3 (12:30→23:38)
[2017-07-17] MEDS: TAMSULOSIN 0.4 MG CAP.ER.24H PO SCH (12:31)
[2017-07-17] MEDS: HEPARIN SODIUM,PORCINE 5,000 UNIT/ML 1 ML VIAL SQ SCH ×2 (12:31→20:13)
--- NOTE | 2017-07-17 13:07 | P.GSHP ---
History of Present Illness H&P Date: 07/15/17 CCHIEF COMPLAINT: Colon cancer. HISTORY OF PRESENT ILLNESS: José Luis Cohen is a 61 year-old male who had his first colonoscopy with Dr. Buenrostro 1 month ago with pathology positive colon cancer. He had findings of a tumor of 50 cm from the anal verge. He had a metastatic workup including cardiac risk assessment. He now presents for colon resection. PAST MEDICAL HISTORY: Please see list. PAST SURGICAL HISTORY: Please see list. MEDICATIONS: Please see list. ALLERGIES: Please see list. SOCIAL HISTORY: No illicit drug use FAMILY HISTORY: No reports of Crohn disease or ulcerative colitis. Strong family history of colon cancer. REVIEW OF ORGAN SYSTEMS: GI: Changes in bowel habits and blood in stools. Recent colonoscopy with adenoma. Colonoscopy was incomplete however. CONSTITUTIONAL: No fevers or chills. HEENT: Denies any trouble with vision, hearing or nosebleeds. No difficulty swallowing. LYMPHATIC: The patient denies any lumps and bumps around the neck. ENDOCRINE: Denies any thyroid disorders. Denies any blood sugar glucose intolerance. RESPIRATORY: Denies pneumonia. Is a chronic smoker. Has chronic cough. CARDIOVASCULAR: Denies any chest pain, palpitations, or recent heart attacks. GENITOURINARY: Denies any blood in urine or increased urinary frequency. MUSCULOSKELETAL: Has occassional back pain, stiffness or joint arthritis. NEUROLOGIC: Denies any numbness or tingling along the distal extremities. No seizure disorders or headaches. PSYCHIATRIC: Denies any depression or suicidal ideation. HEMATOLOGIC: Denies any abnormal bleeding or bruising. BREASTS: Denies any breast lumps, pain or nipple discharge. SKIN: No current skin cancer. No rash. PHYSICAL EXAM: VITAL SIGNS: Stable Patient is a 61-year-old male. GENERAL: Well developed and in no acute distress. Pleasant. HEENT: No sclera icterus. Extraocular movements grossly intact. Moist buccal mucosa. Head is atraumatic, normocephalic. Hears conversational speech. No nasal drainage. NECK: Supple without lymphadenopathy. No JV distention. CHEST: Non-labored respirations and equal bilateral excursions. CARDIOVASCULAR: Regular rate and rhythm. Palpable 2+ radial pulses. ABDOMEN: Soft. Non-tender. Nondistended. MUSCULOSKELETAL: No clubbing, cyanosis or edema. NEUROLOGIC: No focal or lateralizing signs. PSYCH: Appropriate affect. Alert and oriented to person, place and time. SKIN: Well perfused. Good skin turgor. STUDIES: CT of the abdomen/pelvis was done without contrast and demonstrated an exophytic lesion along the left kidney. Separately, ascending diverticulitis was found from his March of 2017 CT scan. I am studies confirm tumor along the splenic flexure/proximal descending colon. PATHOLOGY: Reviewed and positive for malignancy adenocarcinoma. ASSESSMENT: 1. Colon cancer. 2. History of ascending colitis. 3. Obesity. 4. Active tobacco use. 5. COPD. PLAN: 1. I have also recommended complete tobacco cessation and counseling. He is aware that smoking increases the risk for colostomy bag including break down of his anastomosis. Risk of surgery was also includes injury to his ureter, which was also reviewed. 2. Robotic assisted approach partial colon resection was also reviewed in detail as well as inpatient hospitalization anticipated more than 2 nights. 3. DVT prophylaxis. 4. Antibiotic prophylaxis. 5. Enhance colon recovery program. 6. Mechanical including antibiotic bowel prep. 7. He has completed cardiac risk assessment. Past Medical History Past Medical History: Coronary Artery Disease (CAD), Cancer, Musculoskeletal Disorder Additional Past Medical History / Comment(s): RECENT DX OF COLON CA. BACK ACHES R/T JOB. MILD CAD PER CARDIAC CATH 07/05/17. History of Any Multi-Drug Resistant Organisms: MRSA Date of last positivie culture/infection: ?2007 MDRO Source:: [facility] Past Surgical History: Appendectomy, Heart Catheterization, Orthopedic Surgery Additional Past Surgical History / Comment(s): RT Shoulder surgery, RT knee surgery. COLONOSCOPY. Past Anesthesia/Blood Transfusion Reactions: No Reported Reaction Smoking Status: Current every day smoker - Past Family History Mother Family Medical History: CVA/TIA Medications and Allergies Home Medications Medication Instructions Recorded Confirmed Type HYDROcodone/APAP 5-325MG [[place] 1 tab PO Q6HR PRN #30 tab 07/17/17 Rx 5-325] Ibuprofen [Motrin] 600 mg PO Q8HR PRN #30 tab 07/17/17 Rx Metoprolol Tartrate [Lopressor] 50 mg PO BID #30 tab 07/17/17 Rx metroNIDAZOLE [Flagyl] 500 mg PO TID #30 tab 07/17/17 Rx Allergies Allergy/AdvReac Type Severity Reaction Status Date / Time No Known Allergies Allergy Verified 07/15/17 23:47 Surgical - Exam Vital Signs Temp Pulse Resp BP Pulse Ox 98.5 F 79 16 144/91 94 L 07/15/17 10:59 07/15/17 10:59 07/15/17 10:59 07/15/17 10:59 07/15/17 10:59 Results - Labs 07/17/17 06:53 07/17/17 08:50
--- NOTE | 2017-07-17 13:10 | P.PN ---
Progress Note - Text Progress Note Date: 07/17/17 Patient reevaluated. Severe epigastric abdominal pain now resolved and improved. No peritonitis. He is still passing flatus. He denies any moderate abdominal distention. In fact, abdominal distention improved from this morning. ESTELA also evaluated with serosanguineous output. Antibiotics has been adjusted for known contaminated case. Patient will be reevaluated for discharge potentially tomorrow. New prescriptions including antibiotics, pain meds, metoprolol also written on his behalf. Anticipated follow-up in the office within 3 days.
[2017-07-17] MEDS: METOPROLOL TARTRATE 50 MG TAB PO SCH ×2 (13:45→20:13)
[2017-07-17] MEDS ORDERED: ACETAMINOPHEN TAB 500 MG TAB PO STA (15:19)
[2017-07-17] MEDS: KETOROLAC 30 MG/ML 1 ML VIAL IVP SCH ×2 (18:05→23:38)
[2017-07-18] MEDS: KETOROLAC 30 MG/ML 1 ML VIAL IVP SCH ×4 (05:45→23:50)
[2017-07-18] MEDS: METOCLOPRAMIDE 5 MG/ML 2 ML VIAL IVP SCH ×4 (05:45→23:50)
[2017-07-18] MEDS: SODIUM CHLORIDE 0.9% 1,000 ML IV SCH ×3 (05:46→20:44)
[2017-07-18] MEDS: ACETAMINOPHEN TAB 500 MG TAB PO PRN (06:05)
[2017-07-18 07:40] LABS: Basophils % (A) 0 %; Eosinophils # (A) 0.1 k/uL (0-0.7); Eosinophils % (A) 0 %; HCT 38.9 % (39.0-53.0); HGB 13.1 gm/dL (13.0-17.5); Lymphocytes # (A) 0.8 k/uL (1.0-4.8); Lymphocytes % (A) 6 %; MCH 29.3 pg (25.0-35.0); MCHC 33.6 g/dL (31.0-37.0); MCV 87.4 fL (80.0-100.0); Mean Platelet Volume 8.9; Monocytes # (A) 0.8 k/uL (0-1.0); Monocytes % (A) 7 %; Neutrophils # (A) 10.3 k/uL (1.3-7.7); Neutrophils % (A) 85 %; Platelet Count 180 k/uL (150-450); RBC 4.46 m/uL (4.30-5.90); RDW 13.2 % (11.5-15.5); WBC 12.1 k/uL (3.8-10.6)
[2017-07-18] MEDS: metroNIDAZOLE-NS PMX 500 MG in SALINE 1 100ML.BAG IVPB SCH ×3 (08:07→23:50)
[2017-07-18 08:14] LABS: ALT 29 U/L (21-72); AST 27 U/L (17-59); Albumin 3.2 g/dL (3.5-5.0); Alkaline Phosphatase 77 U/L (38-126); Anion Gap 12 mmol/L; Blood Urea Nitrogen 14 mg/dL (9-20); Calcium 8.3 mg/dL (8.4-10.2); Carbon Dioxide 23 mmol/L (22-30); Chloride 105 mmol/L (98-107); Glucose 109 mg/dL (74-99); Sodium 140 mmol/L (137-145); Total Bilirubin 1.3 mg/dL (0.2-1.3); Total Protein 5.7 g/dL (6.3-8.2)
[2017-07-18] MEDS: METOPROLOL TARTRATE 50 MG TAB PO SCH ×2 (10:09→19:39)
[2017-07-18] MEDS: TAMSULOSIN 0.4 MG CAP.ER.24H PO SCH ×2 (10:09)
[2017-07-18] MEDS: HEPARIN SODIUM,PORCINE 5,000 UNIT/ML 1 ML VIAL SQ SCH ×2 (10:09→20:39)
[2017-07-18] MEDS: LEVOFLOXACIN 500MG-D5W PMX 500 MG in DEXTROSE/WATER 1 100ML.BAG IVPB SCH (10:09)
--- NOTE | 2017-07-18 11:23 | P.PN ---
Subjective Progress Note Date: 07/18/17 Principal diagnosis: Colon cancer Patient is postoperative day #3 status post colon resection. He reports having intermittent sweats yesterday. None this morning. He is having bowel movements even today. His is at bedside. We reviewed intraoperative findings including a poor bowel prep and other patient related issues with history of tobacco use and his obesity. He reports new lower abdominal pain. No further ports of epigastric pain or chest pain. He has been able to ambulate. No fevers or chills today. Objective - Vital Signs Vital signs: Vital Signs Temp 98.0 F 07/18/17 07:00 Pulse 100 07/18/17 07:00 Resp 16 07/18/17 07:00 BP 112/69 07/18/17 07:00 Pulse Ox 93 L 07/18/17 07:00 Intake & Output 07/17/17 07/18/17 07/18/17 18:59 06:59 18:59 Intake Total 690 400 0 Output Total 160 Balance 530 400 0 Intake: Intake, IV Titration 450 400 Amount Levofloxacin 500Mg-D5w 350 Pmx 500 mg In Dextrose/ Water 1 100ml.bag @ 100 mls/hr IVPB ONCE [facility] Rx#: [id number] Sodium Chloride 0.9% 1, 400 000 ml @ 50 mls/hr IV . Q20H [facility] Rx#:[id number] metroNIDAZOLE-NS PMX 500 100 mg In Saline 1 100ml.bag @ 100 mls/hr IVPB Q8HR [facility] Rx#:[id number] Oral 240 0 Output: Drainage 160 Lower Abdomen 160 Other: # Voids 1 - Exam PHYSICAL EXAM: GENERAL: Well-developed pleasant male sitting up in chair. HEENT: No scleral icterus. Extraocular movements grossly intact. Moist buccal mucosa. NECK: Supple without lymphadenopathy. CHEST: Equal bilateral excursions. increased respirations. CARDIOVASCULAR: Regular rate and rhythm. Distal 2+ pulses. ABDOMEN: Soft, mild distention. No peritoneal signs. ESTELA color less sanguinous than yesterday. Increased brown tinge. No bile. No signs of cellulitis or infection. MUSCULOSKELETAL: No clubbing, cyanosis, or edema. SKIN: Good skin turgor. NEURO: Cranial nerves II-12 grossly intact. No focal or lateralizing signs. PSYCH: Mary to person place and time. - Labs CBC & Chem 7: 07/18/17 06:36 07/18/17 06:36 Labs: Abnormal Lab Results - Last 24 Hours (Table) 07/18/17 07/18/17 Range/Units 06:36 06:36 WBC 12.1 H (3.8-10.6) k/uL Hct 38.9 L (39.0-53.0) % Neutrophils # 10.3 H (1.3-7.7) k/uL Lymphocytes # 0.8 L (1.0-4.8) k/uL Glucose 109 H (74-99) mg/dL Calcium 8.3 L (8.4-10.2) mg/dL Total Protein 5.7 L (6.3-8.2) g/dL Albumin 3.2 L (3.5-5.0) g/dL Assessment and Plan (1) Malignant neoplasm of descending colon Current Visit: Yes Status: Acute Code(s): C18.6 - MALIGNANT NEOPLASM OF DESCENDING COLON SNOMED Code(s): 876712161 (2) Morbid obesity due to excess calories Current Visit: Yes Status: Acute Code(s): E66.01 - MORBID (SEVERE) OBESITY DUE TO EXCESS CALORIES SNOMED Code(s): 906208684 (3) Tobacco abuse Current Visit: Yes Status: Acute Code(s): Z72.0 - TOBACCO USE SNOMED Code( s): 448480178 (4) S/P colon resection Current Visit: Yes Status: Acute Code(s): Z90.49 - ACQUIRED ABSENCE OF OTHER SPECIFIED PARTS OF DIGESTIVE TRACT SNOMED Code(s): 296384204 Plan: 1. His epigastric abdominal pain including chest pain is completely resolved. 2. He has new bilateral lower abdominal pain. 3. His white blood cell count has improved since change of antibiotics. No further report of fevers. 4. He has 3 main factors which made his surgery high risk including obesity with BMI 35, history of tobacco abuse, and poor bowel prep. With these factors , potential exploratory laparotomy with colostomy creation has been described pending results of additional studies. 5. The patient has agreed to proceed with a CT of the abdomen and pelvis. Discharge is on hold. 6. Potential surgical intervention has been described in detail with the patient's family including exploratory laparotomy with descending colostomy creation if needed.
[2017-07-18] MEDS ORDERED: RX INFO: IV CONTRAST WAS GIVEN 1 EACH MISC MISCELLANE PRN (11:25)
[2017-07-18] MEDS: IOHEXOL 350 MG/ML 25 ML BOTTLE (ORAL USE) PO PRN ×2 (11:47→12:28)
[2017-07-18] MEDS: MORPHINE SULFATE 4 MG/ML SYRINGE IVP PRN ×2 (11:57→19:39)
[2017-07-18] MEDS: HYDROcodone/APAP 7.5-325MG 1 EACH TAB PO PRN ×2 (11:58→16:37)
--- NOTE | 2017-07-18 12:08 | P.PN ---
Subjective Progress Note Date: 07/18/17 Principal diagnosis: Colon cancer The patient states he has severe pelvic pain. He does not feel well enough to go home. He's had some flatus and a small bowel movement. His ESTELA drain has some dark serosanguineous fluid within it. He has tolerated ice chips. Objective - Vital Signs Vital signs: Vital Signs Temp 98.0 F 07/18/17 07:00 Pulse 100 07/18/17 07:00 Resp 16 07/18/17 07:00 BP 112/69 07/18/17 07:00 Pulse Ox 93 L 07/18/17 07:00 Intake & Output 07/17/17 07/18/17 07/18/17 18:59 06:59 18:59 Intake Total 690 400 0 Output Total 160 Balance 530 400 0 Intake: Intake, IV Titration 450 400 Amount Levofloxacin 500Mg-D5w 350 Pmx 500 mg In Dextrose/ Water 1 100ml.bag @ 100 mls/hr IVPB ONCE [facility] Rx#: [id number] Sodium Chloride 0.9% 1, 400 000 ml @ 50 mls/hr IV . Q20H [facility] Rx#:[id number] metroNIDAZOLE-NS PMX 500 100 mg In Saline 1 100ml.bag @ 100 mls/hr IVPB Q8HR [facility] Rx#:[id number] Oral 240 0 Output: Drainage 160 Lower Abdomen 160 Other: # Voids 1 - Gastrointestinal Gastrointestinal Comment(s): Abdomen soft. There is tenderness in the right left lower quadrant. There is some drainage from the lower robotic trocar site. - Labs CBC & Chem 7: 07/18/17 06:36 07/18/17 06:36 Labs: Abnormal Lab Results - Last 24 Hours (Table) 07/18/17 07/18/17 Range/Units 06:36 06:36 WBC 12.1 H (3.8-10.6) k/uL Hct 38.9 L (39.0-53.0) % Neutrophils # 10.3 H (1.3-7.7) k/uL Lymphocytes # 0.8 L (1.0-4.8) k/uL Glucose 109 H (74-99) mg/dL Calcium 8.3 L (8.4-10.2) mg/dL Total Protein 5.7 L (6.3-8.2) g/dL Albumin 3.2 L (3.5-5.0) g/dL Assessment and Plan Assessment: Status post robotic left colectomy. Patient is not ready for discharge home. He'll be started on clear liquid diet. His temperature and pulse are slightly elevated. He'll continue receive IV antibiotics. Dr. Walters will resume his care in the a.m.
--- NOTE | 2017-07-18 14:00 | P.PN ---
Progress Note - Text Progress Note Date: 07/18/17 I personally reviewed his CT scan demonstrating free air from recent surgery. ESTELA in pelvis. Minimal fluid in the pelvis. Anastomosis still intact. Results discussed with patient and nurse including plan for laparotomy with colostomy creation pending clinical course.
[2017-07-18] MEDS: PANTOPRAZOLE 40 MG/10 ML VIAL IVP SCH (14:02)
--- NOTE | 2017-07-18 14:09 | CT ---
EXAMINATION TYPE: CT abdomen pelvis w con DATE OF EXAM: 07/18/2017 REFERENCE: Previous study dated 06/11/2017. HISTORY: abdominal pain HISTORY: Recent surgery, low pelvic pain CT DLP: 1984.70 mGy Automated exposure control for dose reduction was used. TECHNIQUE: Helical acquisition through the abdomen and pelvis was obtained following the oral ingesti on of with Oral Contrast and following intravenous administration of 100 mL of Omnipaque 300. The holly a was reformatted in axial, coronal and sagittal projections. FINDINGS: There is a small left-sided pleural effusion. There is atelectatic change present at both lung bases, worse on the left than the right. There is elevation of the left hemidiaphragm. The heart is mildly enlarged. There is no pericardial fluid. Within the abdomen, there is a small amount of free fluid. There is extensive free air throughout the abdomen. The liver is prominent measuring 20 cm. It is mildly fatty infiltrated. The gallbladder is unremarkable. The spleen is normal in size. Both adrenal glands are normal. Both kidneys demonstrate function and appear morphologically normal. The pancreas is unremarkable. There is no significant retroperitoneal, iliac or inguinal adenopathy. There is a peritoneal dialysis catheter in place. This is likely the source of the free fluid and dayday e air. The bladder is not distended. There is been prior surgery in the mid descending colon. The entire colon remains thickened. Small wally wel loops are mildly prominent in the left upper quadrant and a more normal-appearing in the right lo wer quadrant. There is degenerative disc disease and hypertrophic spondylosis within the spine. No bony destructive lesion is seen. IMPRESSION: 1. SMALL LEFT PLEURAL EFFUSION. 2. CONSOLIDATION OR ATELECTASIS AT THE LUNG BASES, GREATER ON THE LEFT THAN THE RIGHT. 3. PROBABLE DIALYSATE WITHIN THE ABDOMEN. I SUSPECT A DIALYSIS CATHETER IS A SOURCE OF THE FREE AIR. 4. SURGICAL CHANGE IN THE MID DESCENDING COLON. 5. DIFFUSE THICKENING OF THE COLON. PLEASE CORRELATE TO EXCLUDE COLITIS.
[2017-07-18] MEDS ORDERED: SODIUM CHLORIDE 0.9% 1,000 ML IV ONE ×3 (19:50→21:04)
[2017-07-18] MEDS ORDERED: METOPROLOL TARTRATE 25 MG TAB PO STA (21:04)
[2017-07-18] MEDS: diphenhydrAMINE 50 MG/ML 1 ML VIAL IVP PRN (21:29)
[2017-07-19] MEDS: METOCLOPRAMIDE 5 MG/ML 2 ML VIAL IVP SCH ×4 (05:44→23:47)
[2017-07-19] MEDS: KETOROLAC 30 MG/ML 1 ML VIAL IVP SCH ×4 (05:44→23:47)
[2017-07-19] MEDS: MORPHINE SULFATE/PF 10MG/10ML VL IVP PRN ×4 (06:02→23:52)
--- NOTE | 2017-07-19 07:22 | P.HPADDEND ---
H&P Addendum H&P Addendum Date: 07/19/17 Patient seen and evaluated. He is resting comfortably this morning. No reports of fevers. Patient will undergo exploratory laparotomy with ostomy creation.
[2017-07-19 07:33] LABS: ALT 28 U/L (21-72); AST 20 U/L (17-59); Albumin 2.7 g/dL (3.5-5.0); Alkaline Phosphatase 66 U/L (38-126); Anion Gap 14 mmol/L; Blood Urea Nitrogen 21 mg/dL (9-20); Calcium 8.2 mg/dL (8.4-10.2); Carbon Dioxide 20 mmol/L (22-30); Chloride 109 mmol/L (98-107); Glucose 156 mg/dL (74-99); Potassium 4.2 mmol/L (3.5-5.1); Sodium 143 mmol/L (137-145); Total Bilirubin 1.3 mg/dL (0.2-1.3)
[2017-07-19 07:53] LABS: HGB 14.8 gm/dL (13.0-17.5); MCH 29.7 pg (25.0-35.0); MCHC 33.7 g/dL (31.0-37.0); Mean Platelet Volume 8.7; Platelet Count 201 k/uL (150-450); RBC 4.99 m/uL (4.30-5.90); RDW 13.4 % (11.5-15.5); WBC 10.1 k/uL (3.8-10.6)
[2017-07-19] MEDS: metroNIDAZOLE-NS PMX 500 MG in SALINE 1 100ML.BAG IVPB SCH ×3 (08:26→23:47)
[2017-07-19] MEDS: METOPROLOL TARTRATE 50 MG TAB PO SCH ×2 (08:27→21:28)
[2017-07-19] MEDS: HEPARIN SODIUM,PORCINE 5,000 UNIT/ML 1 ML VIAL SQ SCH ×2 (08:27→21:23)
[2017-07-19] MEDS: PANTOPRAZOLE 40 MG/10 ML VIAL IVP SCH (08:27)
[2017-07-19] MEDS: TAMSULOSIN 0.4 MG CAP.ER.24H PO SCH (09:07)
[2017-07-19 09:11] LABS: Band Neutrophils % 32 %; Dohle Bodies Present; Large Platelets Present; Metamyelocytes % 1 %; Monocytes # (M) 0.91 k/uL (0-1.0); Myelocytes % 1 %; Neutrophils % (M) 56 %; Nucleated Red Blood Cells 0 /100 WBC (0-0); Poikilocytosis (M) Present; Total Cells Counted 200
[2017-07-19] MEDS: SODIUM CHLORIDE 0.9% 1,000 ML IV SCH ×2 (09:40→19:07)
[2017-07-19] MEDS: LEVOFLOXACIN 500MG-D5W PMX 500 MG in DEXTROSE/WATER 1 100ML.BAG IVPB SCH (09:40)
[2017-07-19] MEDS ORDERED: IV FLUID CONTINUATION 1,000 ML IV ONE (15:53)
[2017-07-19] MEDS: ONDANSETRON 4 MG/2 ML VIAL IVP PRN (15:54)
[2017-07-19] MEDS ORDERED: LACTATED RINGERS 1,000 ML IV ONE ×4 (16:07→19:45)
[2017-07-19] MEDS ORDERED: MIDAZOLAM 2 MG/2 ML VIAL ONE (16:17)
[2017-07-19] MEDS ORDERED: LIDOCAINE 1% INJ 10MG/ML (20 ML MDV) ONE (16:17)
[2017-07-19] MEDS ORDERED: PROPOFOL 10 MG/ML 20 ML VIAL IV ONE (16:17)
[2017-07-19] MEDS ORDERED: fentaNYL (PF) 50 MCG/ML 2 ML AMP ONE (16:17)
[2017-07-19] MEDS ORDERED: GLYCOPYRROLATE 0.2 MG/ML 2 ML VIAL ONE (16:17)
[2017-07-19] MEDS ORDERED: NEOSTIGMINE 1 MG/ML 10 ML VIAL ONE (16:17)
[2017-07-19] MEDS ORDERED: KETOROLAC 30 MG/ML 1 ML VIAL ONE (16:17)
[2017-07-19] MEDS ORDERED: SUCCINYLCHOLINE CHLORIDE 100 MG/5 ML SYR IV ONE (16:17)
[2017-07-19] MEDS ORDERED: ROCURONIUM BROMIDE 10 MG/ML 10 ML VIAL IV ONE (16:17)
[2017-07-19] MEDS: MEPERIDINE 50 MG/ML SYRINGE IVP ONE ×2 (20:15→20:25)
[2017-07-19] MEDS: fentaNYL (PF) 50 MCG/ML 2 ML AMP IVP ONE ×2 (20:42→20:53)
[2017-07-19] MEDS ORDERED: SODIUM CHLORIDE 0.9% 2,000 ML IV ONE (20:51)
--- NOTE | 2017-07-19 20:57 | P.PCN ---
Date of Procedure: 07/19/17 Preoperative Diagnosis: Generalized abdominal pain and peritonitis Postoperative Diagnosis: Same, fecal peritonitis, dehydration, pneumoperitoneum, ascending including transverse and remnant colon colitis Procedure(s) Performed: Exploratory laparotomy with abdominal washout 9 L normal saline, resection of colon colon anastomosis, ileostomy creation right lower quadrant, placement of ESTELA drain upper abdomen, EGD Anesthesia: MARLENE Surgeon: Charissa Krause Estimated Blood Loss (ml): 100 Pathology: other (anaerobic and aerobic culture of peritoneal fluid) Condition: stable Disposition: floor Operative Findings: Diffuse fecal peritonitis involving the upper abdomen, diffuse colitis of the ascending transverse colon and remnant sigmoid colon, endoscopy demonstrating no gastric or duodenal perforation, anastomosis resected, ileostomy creation performed to avoid diffuse colitis identified:
[2017-07-20] MEDS: MORPHINE SULFATE/PF 10MG/10ML VL IVP PRN ×5 (02:50→19:04)
[2017-07-20] MEDS: METOCLOPRAMIDE 5 MG/ML 2 ML VIAL IVP SCH ×3 (06:15→17:54)
[2017-07-20 07:13] LABS: ALT 50 U/L (21-72); AST 53 U/L (17-59); Albumin 2.2 g/dL (3.5-5.0); Alkaline Phosphatase 60 U/L (38-126); Anion Gap 7 mmol/L; Blood Urea Nitrogen 37 mg/dL (9-20); Calcium 7.8 mg/dL (8.4-10.2); Carbon Dioxide 22 mmol/L (22-30); Chloride 113 mmol/L (98-107); Glucose 168 mg/dL (74-99); Magnesium 2.8 mg/dL (1.6-2.3); Phosphorus 2.8 mg/dL (2.5-4.5); Potassium 4.1 mmol/L (3.5-5.1); Sodium 142 mmol/L (137-145); Total Bilirubin 1.3 mg/dL (0.2-1.3); Total Protein 4.3 g/dL (6.3-8.2)
[2017-07-20 07:37] LABS: Basophils % (A) 0 %; Eosinophils % (A) 0 %; HCT 45.2 % (39.0-53.0); HGB 14.8 gm/dL (13.0-17.5); Lymphocytes # (A) 0.5 k/uL (1.0-4.8); Lymphocytes % (A) 4 %; MCH 29.2 pg (25.0-35.0); MCHC 32.8 g/dL (31.0-37.0); MCV 88.9 fL (80.0-100.0); Mean Platelet Volume 9.5; Monocytes # (A) 0.8 k/uL (0-1.0); Monocytes % (A) 6 %; Neutrophils # (A) 11.4 k/uL (1.3-7.7); Neutrophils % (A) 88 %; Platelet Count 258 k/uL (150-450); RBC 5.08 m/uL (4.30-5.90); RDW 13.9 % (11.5-15.5)
--- NOTE | 2017-07-20 07:55 | P.PN ---
Subjective Progress Note Date: 07/20/17 Principal diagnosis: Colon cancer Patient is postoperative day #4 status post colon resection, POD 1 abdominal washout with ileostomy "My belly pain is much better." He complains of back pain from his bed. No nausea or vomiting. Has discomfort from NGT. Dressing and incision intact. Objective - Vital Signs Vital signs: Vital Signs Temp 97.5 F L 07/20/17 01:51 Pulse 100 07/20/17 01:51 Resp 16 07/20/17 01:51 BP 131/88 07/20/17 01:51 Pulse Ox 93 L 07/20/17 01:51 Intake & Output 07/19/17 07/20/17 07/20/17 18:59 06:59 18:59 Intake Total 3700 2600 Output Total 510 Balance 3190 2600 Intake: IV 2900 1000 Intake, IV Titration 800 1600 Amount Levofloxacin 500Mg-D5w 100 Pmx 500 mg In Dextrose/ Water 1 100ml.bag @ 100 mls/hr IVPB Q24HR [facility] Rx# :[id number] Sodium Chloride 0.9% 1, 600 1600 000 ml @ 100 mls/hr IV . Q10H [facility] Rx#:[id number] metroNIDAZOLE-NS PMX 500 100 mg In Saline 1 100ml.bag @ 100 mls/hr IVPB Q8HR [facility] Rx#:[id number] Output: Drainage 60 Lower Abdomen 60 Urine 350 Estimated Blood Loss 100 Other: Voiding Method Indwelling Catheter - Exam PHYSICAL EXAM: GENERAL: Well-developed pleasant male sitting up in chair. HEENT: No scleral icterus. Extraocular movements grossly intact. Moist buccal mucosa. NECK: Supple without lymphadenopathy. CHEST: Equal bilateral excursions. increased respirations. CARDIOVASCULAR: Tachycardic (improved from yesterday). Distal 2+ pulses. ABDOMEN: Soft, mild distention. No peritoneal signs. ESTELA serosanguinous. Ilestomy fer colored. Patent and viable. MUSCULOSKELETAL: No clubbing, cyanosis, or edema. SKIN: Good skin turgor. : Dark urine present prior to start of surgery. NEURO: Cranial nerves II-12 grossly intact. No focal or lateralizing signs. PSYCH: Mary to person place and time. - Labs CBC & Chem 7: 07/20/17 06:45 07/20/17 06:45 Labs: Abnormal Lab Results - Last 24 Hours (Table) 07/19/17 07/20/17 07/20/17 Range/Units 06:32 06:45 06:45 WBC 13.0 H (3.8-10.6) k/uL Neutrophils # 11.4 H (1.3-7.7) k/uL Neutrophils # (Manual) 8.80 H (1.3-7.7) k/uL Lymphocytes # 0.5 L (1.0-4.8) k/uL Lymphocytes # (Manual) 0.20 L (1.0-4.8) k/uL Metamyelocytes # (Man) 0.10 H (0) k/uL Myelocytes # (Manual) 0.10 H (0) k/uL Chloride 113 H (98-107) mmol/L BUN 37 H (9-20) mg/dL Glucose 168 H (74-99) mg/dL Calcium 7.8 L (8.4-10.2) mg/dL Magnesium 2.8 H (1.6-2.3) mg/dL Total Protein 4.3 L (6.3-8.2) g/dL Albumin 2.2 L (3.5-5.0) g/dL Microbiology - Last 24 Hours (Table) 07/19/17 19:13 Gram Stain - Preliminary Abdomen Wound Culture - Preliminary 07/19/17 19:13 Anaerobic Culture - Preliminary Abdomen Assessment and Plan (1) Malignant neoplasm of descending colon Current Visit: Yes Status: Acute Code(s): C18.6 - MALIGNANT NEOPLASM OF DESCENDING COLON SNOMED Code(s): 542914535 (2) Morbid obesity due to excess calories Current Visit: Yes Status: Acute Code(s): E66.01 - MORBID (SEVERE) OBESITY DUE TO EXCESS CALORIES SNOMED Code(s): 018860270 (3) Tobacco abuse Current Visit: Yes Status: Acute Code(s): Z72.0 - TOBACCO USE SNOMED Code( s): 583681183 (4) S/P colon resection Current Visit: Yes Status: Acute Code(s): Z90.49 - ACQUIRED ABSENCE OF OTHER SPECIFIED PARTS OF DIGESTIVE TRACT SNOMED Code(s): 188939590 Plan: 1. Ostomy nurse consult 2. ID consultation for fecal peritonitis. 3. Severe dehydration adjust fluids. 4. Ice chips.
[2017-07-20] MEDS: METOPROLOL TARTRATE 50 MG TAB PO SCH ×2 (08:46→21:57)
[2017-07-20] MEDS: PANTOPRAZOLE 40 MG/10 ML VIAL IVP SCH (08:49)
[2017-07-20] MEDS: metroNIDAZOLE-NS PMX 500 MG in SALINE 1 100ML.BAG IVPB SCH ×2 (08:49→16:14)
[2017-07-20] MEDS: HEPARIN SODIUM,PORCINE 5,000 UNIT/ML 1 ML VIAL SQ SCH ×2 (08:49→21:56)
[2017-07-20] MEDS: TAMSULOSIN 0.4 MG CAP.ER.24H PO SCH (10:44)
[2017-07-20] MEDS: KETOROLAC 30 MG/ML 1 ML VIAL IVP SCH ×3 (10:44→17:54)
[2017-07-20] MEDS: LEVOFLOXACIN 500MG-D5W PMX 500 MG in DEXTROSE/WATER 1 100ML.BAG IVPB SCH (11:08)
[2017-07-20] MEDS: SODIUM CHLORIDE 0.9% 1,000 ML IV SCH (11:22)
--- NOTE | 2017-07-20 18:40 | P.PN ---
Progress Note - Text Progress Note Date: 07/20/17 He is doing extremely well. Ostomy viable. Ok to start clear liquids. Keep NGT until function of loop ileostomy.
--- NOTE | 2017-07-20 23:54 | P.CONS ---
History of Present Illness - Reason for Consult Consult date: 07/20/17 - Chief Complaint Abdominal pain - History of Present Illness 61-year-old male who has a history of obesity underwent a colonoscopy and was without evidence of a adenocarcinoma of his colon and consequently is admitted for elective resection of the ascending colon tumor. The patient had a preoperative metastatic workup that was negative and had adequate cardiac risk and constantly was taken to the operating room for the resection of the colon lesion with a primary anastomosis. Postoperatively the patient was not feeling well he had further interventions and imaging studies. With clinical evidence of peritonitis he was taken back to the operating room and there was evidence of the anastomotic leak. Because of this ileostomy was placed and the patient had high-volume lavage of the abdominal cavity. Concern was the feculent peritonitis the infectious diseases consultation was requested. This pleasant gentleman other than complaining of abdominal pain is doing relatively well. With minimal assistance he was able to go from a sitting position back into bed. He is denying high-grade fevers chills or rigors or sweats. He believes he feels better today than yesterday. He denies nausea and has had no emesis. No flatus. He is denying any other new acute difficulties. Review of Systems HEENT:Denies headache or acute visual change. Denies sinus or mouth discomforts. Denies neck stiffness or pain. Denies significant oral cavity pain. Denies difficulty on swallowing. Lungs: Denies significant shortness of breath, cough, sputum production, or hemoptysis. Cardiovascular: Denies significant shortness of breath, chest pain, chest wall pain, orthopnea, dyspnea on exertion, syncope Gastrointestinal: As per the HPI Musculoskeletal: denies significant myalgias or arthralgias. No new joint swelling. Denies new back pain. Skin: Denies new rash or lesions. No new ulcers or wounds are related.. Neuro: Denies headache or visual change. Denies any new onset weakness or difficulty with ambulation. Denies falls or seizures. Psychiatric:Denies anxiety or depression. Endocrine: Denies significant fatigue, denies significant weight loss or weight gain. Past Medical History Past Medical History: Coronary Artery Disease (CAD), Cancer, Musculoskeletal Disorder Additional Past Medical History / Comment(s): RECENT DX OF COLON CA. BACK ACHES R/T JOB. MILD CAD PER CARDIAC CATH 07/05/17. History of Any Multi-Drug Resistant Organisms: MRSA Year Discovered:: ?2007 MDRO Source:: [facility] Past Surgical History: Appendectomy, Heart Catheterization, Orthopedic Surgery Additional Past Surgical History / Comment(s): RT Shoulder surgery, RT knee surgery. COLONOSCOPY. Past Anesthesia/Blood Transfusion Reactions: No Reported Reaction Additional Psychological History / Comment(s): lives with his spouse. [employer]. Denies experience. No International travel. No animal exposures. Current tobacco user. Denies significant alcohol or recreational drug use Smoking Status: Current every day smoker - Past Family History Mother Family Medical History: CVA/TIA Medications and Allergies Home Medications and Allergies Comment(s): Current Medications Acetaminophen (Tylenol Tab) 1,000 mg PO Q6HR PRN PRN Reason: Fever and/ or Pain Last Admin: 07/18/17 06:05 Dose: 1,000 mg Hydrocodone Bitart/Acetaminophen ([place] 7.5-325) 1 each PO Q4H PRN PRN Reason: Pain Last Admin: 07/18/17 16:37 Dose: 1 each Benzocaine/Menthol (Cepacol Lozenge) 1 each MUCOUS MEM Q1HR PRN PRN Reason: Sore Throat Diphenhydramine HCl (Benadryl) 25 mg IVP Q6HR PRN PRN Reason: Allergy Symptoms Last Admin: 07/18/17 21:29 Dose: 25 mg Heparin Sodium (Porcine) (Heparin) 5,000 unit SQ Q12HR [facility] Last Admin: 07/20/17 21:56 Dose: 5,000 unit Metronidazole 500 mg/ IV (Solution) 100 mls @ 100 mls/hr IVPB Q8HR [facility] Last Admin: 07/20/17 16:14 Dose: 100 mls/hr Levofloxacin 500 mg/ IV (Solution) 100 mls @ 100 mls/hr IVPB Q24HR [facility] Stop: 07/25/17 09:01 Last Admin: 07/20/17 11:08 Dose: 100 mls/hr Ketorolac Tromethamine (Toradol) 15 mg IVP Q6HR [facility] Stop: 07/21/17 15:19 Last Admin: 07/20/17 17:54 Dose: 15 mg Lorazepam (Ativan) 1 mg IV Q6HR PRN PRN Reason: Anxiety Last Admin: 07/18/17 20:39 Dose: 1 mg Metoclopramide HCl (Reglan) 10 mg IVP Q6HR [facility] Last Admin: 07/20/17 17:54 Dose: 10 mg Metoprolol Tartrate (Lopressor) 50 mg PO BID [facility] Last Admin: 07/20/17 21:57 Dose: 50 mg Morphine Sulfate (Morphine Sulfate) 4 mg IVP Q2HR PRN PRN Reason: pain Last Admin: 07/20/17 19:04 Dose: 4 mg Naloxone HCl (Narcan) 0.2 mg IV Q2M PRN PRN Reason: Opioid Reversal Ondansetron HCl (Zofran) 4 mg IVP Q8HR PRN PRN Reason: Nausea And Vomiting Last Admin: 07/19/17 15:54 Dose: 4 mg Pantoprazole Sodium (Protonix) 40 mg IVP DAILY [facility] Last Admin: 07/20/17 08:49 Dose: 40 mg Tamsulosin HCl (Flomax) 0.4 mg PO PC-[id number] [facility] Last Admin: 07/20/17 10:44 Dose: Not Given Home Medications Medication Instructions Recorded Confirmed Type HYDROcodone/APAP 7.5-325MG [[place] 1 each PO Q4H PRN #30 tab 07/17/17 Rx 7.5-325] Ibuprofen [Motrin] 600 mg PO Q8HR PRN #30 tab 07/17/17 Rx Metoprolol Tartrate [Lopressor] 50 mg PO BID #30 tab 07/17/17 Rx metroNIDAZOLE [Flagyl] 500 mg PO TID #30 tab 07/17/17 Rx Levofloxacin [Levaquin] 500 mg PO DAILY #7 tab 07/19/17 Rx Allergies Allergy/AdvReac Type Severity Reaction Status Date / Time No Known Allergies Allergy Verified 07/15/17 23:47 Physical Exam Vitals: Vital Signs Temp Pulse Pulse Resp BP Pulse Ox 07/20/17 20:30 97.8 F 112 H 16 161/115 93 L 07/20/17 20:00 112 H 16 07/20/17 14:43 98.2 F 113 H 16 142/94 93 L 07/20/17 07:00 98.2 F 103 H 16 150/98 95 07/20/17 01:51 97.5 F L 100 16 131/88 93 L Intake and Output 07/20/17 07/20/17 07/21/17 14:59 22:59 06:59 Intake Total 1050 Output Total 60 2175 Balance -60 -1125 Intake: Intake, IV Titration 1000 Amount Sodium Chloride 0.9% 1, 1000 000 ml @ 100 mls/hr IV . Q10H [facility] Rx#:[id number] Oral 50 Output: Gastric Drainage 445 Drainage 60 60 Left Abdomen 30 Lower Abdomen 60 30 Urine 1545 Stool 125 Other: Voiding Method Indwelling Catheter Indwelling Catheter Weight 108.862 kg 108.862 kg Pleasant 61-year-old male who suffers from obesity is with postoperative pain HEENT: Anicteric conjunctiva are pink and moist nasal mucosa grossly intact without significant lesions, there is no thrush. Neck: The neck is supple without significant lymphadenopathy or thyromegaly. Lungs: Good bilateral air entry expiratory wheezes are scattered There is no significant bronchial sounds. There is no egophony or dullness. Heart: Regular rate and rhythm with an audible S1-S2, no S3 no S4. There is no significant murmur click or rub, PMI was nondisplaced. Abdomen: Ileostomy in place, stoma is pink and healthy in appearance, abdomen has diffuse tenderness postoperative period not truly rigid. No organomegaly is noted Extremities: The upper extremities have excellent pulses they are symmetric, no significant petechiae or telangiectasia. No splinter hemorrhages were noted. The lower extremities are free from significant edema. The peripheral pulses were 2+ and symmetric. Neuro: Awake alert oriented to person place and time. There are no acute new gross focal sensory motor deficits. Results CBC & Chem 7: 07/20/17 06:45 07/20/17 06:45 Labs: Abnormal Lab Results - Last 24 Hours (Table) 07/20/17 07/20/17 Range/Units 06:45 06:45 WBC 13.0 H (3.8-10.6) k/uL Neutrophils # 11.4 H (1.3-7.7) k/uL Lymphocytes # 0.5 L (1.0-4.8) k/uL Chloride 113 H (98-107) mmol/L BUN 37 H (9-20) mg/dL Glucose 168 H (74-99) mg/dL Calcium 7.8 L (8.4-10.2) mg/dL Magnesium 2.8 H (1.6-2.3) mg/dL Total Protein 4.3 L (6.3-8.2) g/dL Albumin 2.2 L (3.5-5.0) g/dL Microbiology - Last 24 Hours (Table) 07/19/17 19:13 Gram Stain - Preliminary Abdomen Wound Culture - Preliminary 07/19/17 19:13 Anaerobic Culture - Preliminary Abdomen Laboratory Results WBC 13.0 k/uL (3.8-10.6) H 07/20/17 06:45 RBC 5.08 m/uL (4.30-5.90) 07/20/17 06:45 Hgb 14.8 gm/dL (13.0-17.5) 07/20/17 06:45 Hct 45.2 % (39.0-53.0) 07/20/17 06:45 MCV 88.9 fL (80.0-100.0) 07/20/17 06:45 MCH 29.2 pg (25.0-35.0) 07/20/17 06:45 MCHC 32.8 g/dL (31.0-37.0) 07/20/17 06:45 RDW 13.9 % (11.5-15.5) 07/20/17 06:45 Plt Count 258 k/uL (150-450) 07/20/17 06:45 Neutrophils % 88 % 07/20/17 06:45 Neutrophils % (Manual) 56 % 07/19/17 06:32 Band Neutrophils % 32 % 07/19/17 06:32 Lymphocytes % 4 % 07/20/17 06:45 Lymphocytes % (Manual) 2 % 07/19/17 06:32 Monocytes % 6 % 07/20/17 06:45 Monocytes % (Manual) 9 % 07/19/17 06:32 Eosinophils % 0 % 07/20/17 06:45 Basophils % 0 % 07/20/17 06:45 Metamyelocytes % 1 % 07/19/17 06:32 Myelocytes % 1 % 07/19/17 06:32 Neutrophils # 11.4 k/uL (1.3-7.7) H 07/20/17 06:45 Neutrophils # (Manual) 8.80 k/uL (1.3-7.7) H 07/19/17 06:32 Lymphocytes # 0.5 k/uL (1.0-4.8) L 07/20/17 06:45 Lymphocytes # (Manual) 0.20 k/uL (1.0-4.8) L 07/19/17 06:32 Monocytes # 0.8 k/uL (0-1.0) 07/20/17 06:45 Monocytes # (Manual) 0.91 k/uL (0-1.0) 07/19/17 06:32 Eosinophils # 0.0 k/uL (0-0.7) 07/20/17 06:45 Basophils # 0.0 k/uL (0-0.2) 07/20/17 06:45 Metamyelocytes # (Man) 0.10 k/uL (0) H 07/19/17 06:32 Myelocytes # (Manual) 0.10 k/uL (0) H 07/19/17 06:32 Nucleated RBCs 0 /100 WBC (0-0) 07/19/17 06:32 Manual Slide Review Performed 07/19/17 06:32 Dohle Bodies Present 07/19/17 06:32 Large Platelets Present 07/19/17 06:32 Poikilocytosis (manual Present 07/19/17 06:32 Sodium 142 mmol/L (137-145) 07/20/17 06:45 Potassium 4.1 mmol/L (3.5-5.1) 07/20/17 06:45 Chloride 113 mmol/L (98-107) H 07/20/17 06:45 Carbon Dioxide 22 mmol/L (22-30) 07/20/17 06:45 Anion Gap 7 mmol/L 07/20/17 06:45 BUN 37 mg/dL (9-20) H 07/20/17 06:45 Creatinine 1.02 mg/dL (0.66-1.25) 07/20/17 06:45 Est GFR (CKD-EPI)AfAm >90 (>60 ml/min/1.73 sqM) 07/20/17 06:45 Est GFR (CKD-EPI)NonAf 80 (>60 ml/min/1.73 sqM) 07/20/17 06:45 Glucose 168 mg/dL (74-99) H 07/20/17 06:45 Calcium 7.8 mg/dL (8.4-10.2) L 07/20/17 06:45 Phosphorus 2.8 mg/dL (2.5-4.5) 07/20/17 06:45 Magnesium 2.8 mg/dL (1.6-2.3) H 07/20/17 06:45 Total Bilirubin 1.3 mg/dL (0.2-1.3) 07/20/17 06:45 AST 53 U/L (17-59) 07/20/17 06:45 ALT 50 U/L (21-72) 07/20/17 06:45 Alkaline Phosphatase 60 U/L (38-126) 07/20/17 06:45 Troponin I <0.012 ng/mL (0.000-0.034) 07/17/17 08:50 Total Protein 4.3 g/dL (6.3-8.2) L 07/20/17 06:45 Albumin 2.2 g/dL (3.5-5.0) L 07/20/17 06:45 Carcinoembryonic Ag 1.0 ng/mL (0.0-4.9) 07/16/17 06:53 Blood Type A Positive 07/10/17 09:43 Blood Type Confirm A Positive 07/15/17 11:50 Blood Type Recheck CABO Indicated 07/10/17 09:43 Antibody Screen NEGATIVE 07/10/17 09:43 Spec Expiration Date 07/17/2017 - 234207/10/17 09:43 Microbiology 07/19/17 19:13 Abdomen Gram Stain - Preliminary 07/19/17 19:13 Abdomen Wound Culture - Preliminary 07/19/17 19:13 Abdomen Anaerobic Culture - Preliminary Assessment and Plan (1) Malignant neoplasm of descending colon Current Visit: Yes Status: Acute Code(s): C18.6 - MALIGNANT NEOPLASM OF DESCENDING COLON SNOMED Code(s): 472662371 (2) S/P colon resection Current Visit: Yes Status: Acute Code(s): Z90.49 - ACQUIRED ABSENCE OF OTHER SPECIFIED PARTS OF DIGESTIVE TRACT SNOMED Code(s): 352839811 (3) Tobacco abuse Current Visit: Yes Status: Acute Code(s): Z72.0 - TOBACCO USE SNOMED Code( s): 358185078 (4) Acute peritonitis Narrative/Plan: 61-year-old male presents to Hospital for the scheduled resection of his colon because of his colon cancer. The patient was a high risk patient because of his history of tobacco smoking before procedure, did have cardiac catheterization and was found evidence of only mild coronary artery disease. The patient has done well postoperatively except he then developed evidence of abdominal distention and pain and was found evidence of feculent peritonitis from the disruption of the end-to-end anastomosis. The patient was converted to an ileostomy. At the time of the procedure surgeon does not relate any significant colitis. The patient is now showing some improvement. He does have leukocytosis related to his peritonitis and recent surgery. He will continue with local maneuvers to improve his discomforts. He is given some techniques for abdominal support for coughing and motion. Antimicrobial therapy currently is with Levaquin and Flagyl which she is responding very well to. Cultures are in process which will further help direct his antibiotics. Potentially he will utilize this is an oral regimen as he transitions to oral antibiotics therapy in the future. His albumin is low and will require significant protein supplementation postoperatively to improve his recovery. Current Visit: Yes Status: Acute Code(s): K65.0 - GENERALIZED (ACUTE) PERITONITIS SNOMED Code(s): 15365626
[2017-07-21] MEDS: KETOROLAC 30 MG/ML 1 ML VIAL IVP SCH ×3 (00:02→11:37)
[2017-07-21] MEDS: METOCLOPRAMIDE 5 MG/ML 2 ML VIAL IVP SCH ×5 (00:02→23:10)
[2017-07-21] MEDS: metroNIDAZOLE-NS PMX 500 MG in SALINE 1 100ML.BAG IVPB SCH ×4 (00:03→23:10)
[2017-07-21 07:39] LABS: Basophils # (A) 0.1 k/uL (0-0.2); Basophils % (A) 1 %; Eosinophils % (A) 0 %; HCT 39.3 % (39.0-53.0); HGB 13.3 gm/dL (13.0-17.5); Lymphocytes # (A) 0.6 k/uL (1.0-4.8); Lymphocytes % (A) 4 %; MCH 30.1 pg (25.0-35.0); MCHC 33.9 g/dL (31.0-37.0); MCV 88.8 fL (80.0-100.0); Mean Platelet Volume 8.8; Monocytes # (A) 0.9 k/uL (0-1.0); Monocytes % (A) 5 %; Neutrophils # (A) 15.4 k/uL (1.3-7.7); Neutrophils % (A) 90 %; Platelet Count 288 k/uL (150-450); RBC 4.43 m/uL (4.30-5.90); RDW 14.1 % (11.5-15.5); WBC 17.1 k/uL (3.8-10.6)
[2017-07-21] MEDS: LEVOFLOXACIN 500MG-D5W PMX 500 MG in DEXTROSE/WATER 1 100ML.BAG IVPB SCH (08:19)
[2017-07-21] MEDS: HEPARIN SODIUM,PORCINE 5,000 UNIT/ML 1 ML VIAL SQ SCH ×2 (08:19→21:13)
[2017-07-21] MEDS: PANTOPRAZOLE 40 MG/10 ML VIAL IVP SCH (08:19)
[2017-07-21] MEDS: METOPROLOL TARTRATE 50 MG TAB PO SCH ×2 (08:19→21:13)
[2017-07-21] MEDS: TAMSULOSIN 0.4 MG CAP.ER.24H PO SCH (08:19)
[2017-07-21 08:24] LABS: ALT 43 U/L (21-72); AST 45 U/L (17-59); Albumin 2.2 g/dL (3.5-5.0); Alkaline Phosphatase 75 U/L (38-126); Anion Gap 10 mmol/L; Blood Urea Nitrogen 42 mg/dL (9-20); Carbon Dioxide 23 mmol/L (22-30); Chloride 115 mmol/L (98-107); Glucose 123 mg/dL (74-99); Potassium 4.1 mmol/L (3.5-5.1); Sodium 148 mmol/L (137-145); Total Bilirubin 1.9 mg/dL (0.2-1.3); Total Protein 4.5 g/dL (6.3-8.2)
[2017-07-21] MEDS: MORPHINE SULFATE/PF 10MG/10ML VL IVP PRN ×3 (08:28→22:42)
--- NOTE | 2017-07-21 11:58 | P.PN ---
<Denise Huynh - Last Filed: 07/21/17 11:46> Subjective Progress Note Date: 07/21/17 61-year-old male seen and examined sitting up in a chair this morning. Nasal gastric tube in place. No movement from the ostomy. [address] serous sanguinous drainage noted. Surgical incision dressing dry no nausea no vomiting clear liquid diet initiated did note the white count is 17.1 this morning the temp is 97.8 Robotic-assisted da Keeley X I left colectomy with intraoperative flexible sigmoidoscopydone on July 15 for proximal descending colon cancer, sigmoid colon, chronic constipation Exploratory laparotomy with abdominal washout 9 L normal saline, resection of colon colon anastomosis, ileostomy creation right lower quadrant, placement of ESTELA drain upper abdomen, EGD done on July 19 for Diffuse fecal peritonitis involving the upper abdomen, diffuse colitis of the ascending transverse colon and remnant sigmoid colon, endoscopy demonstrating no gastric or duodenal perforation, anastomosis resected, ileostomy creation performed to avoid diffuse colitis identified: Objective - Vital Signs Vital signs: Vital Signs Temp 97.8 F 07/21/17 07:00 Pulse 91 07/21/17 07:00 Resp 16 07/21/17 07:00 BP 162/105 07/21/17 07:00 Pulse Ox 95 07/21/17 07:00 Intake & Output 07/20/17 07/21/17 07/21/17 18:59 06:59 18:59 Intake Total 2630 420 Output Total 1320 2050 Balance -1320 580 420 Weight 108.862 kg 108.862 kg Intake: Intake, IV Titration 2100 Amount Lactated Ringers 1,000 ml 1000 As IV [facility] Rx#: [id number] Levofloxacin 500Mg-D5w 100 Pmx 500 mg In Dextrose/ Water 1 100ml.bag @ 100 mls/hr IVPB Q24HR [facility] Rx# :[id number] Sodium Chloride 0.9% 1, 1000 000 ml @ 100 mls/hr IV . Q10H [facility] Rx#:[id number] Oral 530 420 Output: Gastric Drainage 250 595 Drainage 120 35 Left Abdomen 30 15 Lower Abdomen 90 20 Urine 825 1420 Stool 125 Other: Voiding Method Indwelling Catheter Indwelling Catheter Indwelling Catheter - Exam Physical exam Pleasant 61-year-old male sitting up in in a chair this morning Lungs adequate air movement bilaterally cough noted on room air sats are 95% heart S1-S2 audible regular denying chest pain Abdomen soft surgical tenderness appropriate slightly firm distended. Hypoactive bowel tones Valente catheter in place dressings to surgical site dry no nausea no vomiting nasal gastric tube in place to suction. 2 ESTELA drains serosanguineous drainage right lower quadrant. Ostomy left lower quadrant no movement stoma pink Extremities Venodyne's on to the bilateral lower extremities extremities - Labs CBC & Chem 7: 07/21/17 07:02 07/21/17 07:02 Labs: Abnormal Lab Results - Last 24 Hours (Table) 07/21/17 07/21/17 Range/Units 07:02 07:02 WBC 17.1 H (3.8-10.6) k/uL Neutrophils # 15.4 H (1.3-7.7) k/uL Lymphocytes # 0.6 L (1.0-4.8) k/uL Sodium 148 H (137-145) mmol/L Chloride 115 H (98-107) mmol/L BUN 42 H (9-20) mg/dL Glucose 123 H (74-99) mg/dL Calcium 8.0 L (8.4-10.2) mg/dL Total Bilirubin 1.9 H (0.2-1.3) mg/dL Total Protein 4.5 L (6.3-8.2) g/dL Albumin 2.2 L (3.5-5.0) g/dL Microbiology - Last 24 Hours (Table) 07/19/17 19:13 Gram Stain - Preliminary Abdomen Wound Culture - Preliminary Assessment and Plan Assessment: Impression Proximal descending colon cancer, diverticulosis sigmoid colon, chronic constipation Robotic-assisted da Keeley X I left colectomy with intraoperative flexible sigmoidoscopy done on July 15 Fixed tumor involving the proximal descending colon highly suspicious for stage III disease. Exploratory laparotomy with abdominal washout 9 L normal saline, resection of colon colon anastomosis, ileostomy creation right lower quadrant, placement of ESTELA drain upper abdomen, EGD done on July 19 for Diffuse fecal peritonitis involving the upper abdomen, diffuse colitis of the ascending transverse colon and remnant sigmoid colon, endoscopy demonstrating no gastric or duodenal perforation, anastomosis resected, ileostomy creation performed to avoid diffuse colitis identified: Plan Continue postop surgical care Await further recommendations by infectious disease Dr. Graham Increase activity repeat labs in the morning Pain control Start Flomax 0.8mg now DVT and GI prophylaxis Continue clear liquid diet Follow up on path report Continue the nasal gastric tube as ordered The above impression and plan of care have been discussed and directed by signing physician. Denise Huynh nurse practitioner acting as scribe for signing physician. <Charissa Krause N - Last Filed: 07/21/17 16:17> Objective - Vital Signs Vital signs: Vital Signs Temp 97.5 F L 07/21/17 15:00 Pulse 89 07/21/17 15:00 Resp 16 07/21/17 15:00 BP 152/90 07/21/17 15:00 Pulse Ox 95 07/21/17 15:00 Intake & Output 07/20/17 07/21/17 07/21/17 18:59 06:59 18:59 Intake Total 2630 420 Output Total 1320 2050 450 Balance -1320 580 -30 Weight 108.862 kg 108.862 kg Intake: Intake, IV Titration 2100 Amount Lactated Ringers 1,000 ml 1000 As IV [facility] Rx#: [id number] Levofloxacin 500Mg-D5w 100 Pmx 500 mg In Dextrose/ Water 1 100ml.bag @ 100 mls/hr IVPB Q24HR [facility] Rx# :[id number] Sodium Chloride 0.9% 1, 1000 000 ml @ 100 mls/hr IV . Q10H [facility] Rx#:[id number] Oral 530 420 Output: Gastric Drainage 250 595 50 Drainage 120 35 Left Abdomen 30 15 Lower Abdomen 90 20 Urine 825 1420 400 Straight 400 Stool 125 Other: Voiding Method Indwelling Catheter Indwelling Catheter Indwelling Catheter - Labs CBC & Chem 7: 07/21/17 07:02 07/21/17 07:02 Labs: Abnormal Lab Results - Last 24 Hours (Table) 07/21/17 07/21/17 Range/Units 07:02 07:02 WBC 17.1 H (3.8-10.6) k/uL Neutrophils # 15.4 H (1.3-7.7) k/uL Lymphocytes # 0.6 L (1.0-4.8) k/uL Sodium 148 H (137-145) mmol/L Chloride 115 H (98-107) mmol/L BUN 42 H (9-20) mg/dL Glucose 123 H (74-99) mg/dL Calcium 8.0 L (8.4-10.2) mg/dL Total Bilirubin 1.9 H (0.2-1.3) mg/dL Total Protein 4.5 L (6.3-8.2) g/dL Albumin 2.2 L (3.5-5.0) g/dL Microbiology - Last 24 Hours (Table) 07/19/17 19:13 Gram Stain - Preliminary Abdomen Wound Culture - Preliminary Assessment and Plan (1) Malignant neoplasm of descending colon Current Visit: Yes Status: Acute Code(s): C18.6 - MALIGNANT NEOPLASM OF DESCENDING COLON SNOMED Code(s): 142554112 (2) Morbid obesity due to excess calories Current Visit: Yes Status: Acute Code(s): E66.01 - MORBID (SEVERE) OBESITY DUE TO EXCESS CALORIES SNOMED Code(s): 764270200 (3) Tobacco abuse Current Visit: Yes Status: Acute Code(s): Z72.0 - TOBACCO USE SNOMED Code( s): 832708665 (4) S/P colon resection Current Visit: Yes Status: Acute Code(s): Z90.49 - ACQUIRED ABSENCE OF OTHER SPECIFIED PARTS OF DIGESTIVE TRACT SNOMED Code(s): 397740382
[2017-07-21] MEDS ORDERED: FUROSEMIDE 10 MG/ML 2 ML VIAL IV ONE (13:31)
--- NOTE | 2017-07-21 13:39 | P.PN ---
Progress Note - Text Progress Note Date: 07/21/17 No nausea or vomiting after NGT clamped over 16 hrs. He reports generalized swelling. Plan for removal of NGT, done at bedside. Also remove wiggins as urine outout is adequate. Drains are serous. Discharge pending WBC normal, voiding on his own, and ostomy functioning. Care plan described with patient and at bedside. Agree with home healthcare services.
[2017-07-21] MEDS ORDERED: MORPHINE ORAL SOLN 10 MG/5 ML CUP PO PRN (14:48)
[2017-07-21] MEDS: HYDROcodone/APAP 7.5-325MG 1 EACH TAB PO PRN (16:38)
[2017-07-22] MEDS: METOCLOPRAMIDE 5 MG/ML 2 ML VIAL IVP SCH ×3 (05:54→17:44)
[2017-07-22 07:09] LABS: ALT 48 U/L (21-72); AST 65 U/L (17-59); Albumin 2.4 g/dL (3.5-5.0); Alkaline Phosphatase 80 U/L (38-126); Anion Gap 7 mmol/L; Blood Urea Nitrogen 33 mg/dL (9-20); Calcium 8.1 mg/dL (8.4-10.2); Carbon Dioxide 26 mmol/L (22-30); Chloride 116 mmol/L (98-107); Glucose 131 mg/dL (74-99); Potassium 4.2 mmol/L (3.5-5.1); Sodium 149 mmol/L (137-145); Total Bilirubin 2.2 mg/dL (0.2-1.3); Total Protein 4.8 g/dL (6.3-8.2)
[2017-07-22] MEDS: MORPHINE SULFATE/PF 10MG/10ML VL IVP PRN ×2 (07:30→11:31)
[2017-07-22] MEDS: metroNIDAZOLE-NS PMX 500 MG in SALINE 1 100ML.BAG IVPB SCH ×2 (07:30→16:11)
[2017-07-22] MEDS: METOPROLOL TARTRATE 50 MG TAB PO SCH ×2 (07:31→22:01)
[2017-07-22] MEDS: TAMSULOSIN 0.4 MG CAP.ER.24H PO SCH (07:31)
[2017-07-22] MEDS: HEPARIN SODIUM,PORCINE 5,000 UNIT/ML 1 ML VIAL SQ SCH ×2 (07:31→21:59)
[2017-07-22] MEDS: ONDANSETRON 4 MG/2 ML VIAL IVP PRN (07:31)
[2017-07-22] MEDS: PANTOPRAZOLE 40 MG/10 ML VIAL IVP SCH (07:33)
[2017-07-22 07:37] LABS: Basophils # (A) 0.2 k/uL (0-0.2); Basophils % (A) 1 %; Eosinophils # (A) 0.1 k/uL (0-0.7); Eosinophils % (A) 1 %; HCT 38.6 % (39.0-53.0); HGB 12.7 gm/dL (13.0-17.5); Lymphocytes # (A) 0.8 k/uL (1.0-4.8); Lymphocytes % (A) 4 %; MCH 29.7 pg (25.0-35.0); MCV 90.1 fL (80.0-100.0); Monocytes % (A) 5 %; Neutrophils # (A) 16.6 k/uL (1.3-7.7); Neutrophils % (A) 86 %; Platelet Count 308 k/uL (150-450); RBC 4.28 m/uL (4.30-5.90); RDW 14.5 % (11.5-15.5); WBC 19.2 k/uL (3.8-10.6)
[2017-07-22 08:41] LABS: Toxic Granulation Present
[2017-07-22] MEDS: LEVOFLOXACIN 500MG-D5W PMX 500 MG in DEXTROSE/WATER 1 100ML.BAG IVPB SCH (08:50)
--- NOTE | 2017-07-22 09:59 | P.PN ---
Subjective Progress Note Date: 07/22/17 Principal diagnosis: Colon cancer Patient is postoperative day #5 status post colon resection, POD 2 abdominal washout with ileostomy. His ileostomy is working. He is urinating on his own. His pain is well controlled. No fevers or chills. He is tolerating diet, and ambulating and eager to go home. Objective - Vital Signs Vital signs: Vital Signs Temp 98.2 F 07/22/17 07:27 Pulse 84 07/22/17 07:27 Resp 17 07/22/17 08:00 BP 149/93 07/22/17 07:27 Pulse Ox 96 07/22/17 07:27 Intake & Output 07/21/17 07/22/17 07/22/17 18:59 06:59 18:59 Intake Total 420 237 Output Total 460 100 25 Balance -40 -100 212 Intake: Oral 420 237 Output: Gastric Drainage 50 Drainage 10 100 25 Ileostomy 100 Left Abdomen 5 10 Lower Abdomen 5 15 Urine 400 Straight 400 Other: Voiding Method Indwelling Catheter Toilet Toilet # Voids 1 1 - Exam PHYSICAL EXAM: GENERAL: Well-developed pleasant male sitting up in chair. HEENT: No scleral icterus. Extraocular movements grossly intact. Moist buccal mucosa. NECK: Supple without lymphadenopathy. CHEST: Equal bilateral excursions. increased respirations. CARDIOVASCULAR: Tachycardic (improved from yesterday). Distal 2+ pulses. ABDOMEN: Soft, mild distention. ESTELA serous. Ilestomy viable with liquid. Dressing intact. No cellulitis or signs of infection. MUSCULOSKELETAL: No clubbing, cyanosis. Prior edema no resolved. SKIN: Good skin turgor. : Dark urine present prior to start of surgery. NEURO: Cranial nerves II-12 grossly intact. No focal or lateralizing signs. - Labs CBC & Chem 7: 07/22/17 06:33 07/22/17 06:33 Labs: Abnormal Lab Results - Last 24 Hours (Table) 07/22/17 07/22/17 Range/Units 06:33 06:33 WBC 19.2 H (3.8-10.6) k/uL RBC 4.28 L (4.30-5.90) m/uL Hgb 12.7 L (13.0-17.5) gm/dL Hct 38.6 L (39.0-53.0) % Neutrophils # 16.6 H (1.3-7.7) k/uL Lymphocytes # 0.8 L (1.0-4.8) k/uL Sodium 149 H (137-145) mmol/L Chloride 116 H (98-107) mmol/L BUN 33 H (9-20) mg/dL Glucose 131 H (74-99) mg/dL Calcium 8.1 L (8.4-10.2) mg/dL Total Bilirubin 2.2 H (0.2-1.3) mg/dL AST 65 H (17-59) U/L Total Protein 4.8 L (6.3-8.2) g/dL Albumin 2.4 L (3.5-5.0) g/dL Microbiology - Last 24 Hours (Table) 07/21/17 11:00 Gram Stain - Preliminary [place] [facility] Fluid Culture - Preliminary 07/21/17 11:40 Gram Stain - Preliminary [place] [facility] Fluid Culture - Preliminary 07/19/17 19:13 Anaerobic Culture - Preliminary Abdomen 07/19/17 19:13 Gram Stain - Final Abdomen Wound Culture - Final Assessment and Plan (1) Malignant neoplasm of descending colon Current Visit: Yes Status: Acute Code(s): C18.6 - MALIGNANT NEOPLASM OF DESCENDING COLON SNOMED Code(s): 585291111 (2) Morbid obesity due to excess calories Current Visit: Yes Status: Acute Code(s): E66.01 - MORBID (SEVERE) OBESITY DUE TO EXCESS CALORIES SNOMED Code(s): 015241062 (3) Tobacco abuse Current Visit: Yes Status: Acute Code(s): Z72.0 - TOBACCO USE SNOMED Code( s): 626241997 (4) S/P colon resection Current Visit: Yes Status: Acute Code(s): Z90.49 - ACQUIRED ABSENCE OF OTHER SPECIFIED PARTS OF DIGESTIVE TRACT SNOMED Code(s): 034725163 Plan: 1. White count is up. Infectious disease following. Additional cultures from ESTELA was sent. 2. Clinically, no signs of sepsis and he feels very good. 3. Discharge pending antibiotic management.
[2017-07-22] MEDS: ACETAMINOPHEN TAB 500 MG TAB PO PRN (16:14)
[2017-07-22] MEDS: HYDROcodone/APAP 7.5-325MG 1 EACH TAB PO PRN (19:15)
[2017-07-22] MEDS: diphenhydrAMINE 50 MG/ML 1 ML VIAL IVP PRN (22:05)
--- NOTE | 2017-07-23 00:09 | P.PN ---
Subjective Progress Note Date: 07/22/17 Principal diagnosis: Peritonitis 61-year-old male who has a history of obesity underwent a colonoscopy and was without evidence of a adenocarcinoma of his colon and consequently is admitted for elective resection of the ascending colon tumor. The patient had a preoperative metastatic workup that was negative and had adequate cardiac risk and constantly was taken to the operating room for the resection of the colon lesion with a primary anastomosis. Postoperatively the patient was not feeling well he had further interventions and imaging studies. With clinical evidence of peritonitis he was taken back to the operating room and there was evidence of the anastomotic leak. Because of this ileostomy was placed and the patient had high-volume lavage of the abdominal cavity. Concern was the feculent peritonitis the infectious diseases consultation was requested. This pleasant gentleman other than complaining of abdominal pain is doing relatively well. With minimal assistance he was able to go from a sitting position back into bed. He is denying high-grade fevers chills or rigors or sweats. He believes he feels better today than yesterday. He denies nausea and has had no emesis. No flatus. He is denying any other new acute difficulties. 07/22/2017 reveals the patient be considerably improved. He is upright walking sitting in the chair and utilizing his incentive spirometer without difficulties. He has been ingesting fluids with no difficulties at all. Is anxious to have an advancement of his diet. He is not having much abdominal pain. Has adequate output through the ileostomy. Objective - Vital Signs Vital signs: Vital Signs Temp 98.3 F 07/22/17 14:22 Pulse 82 07/22/17 20:00 Resp 20 07/22/17 20:00 BP 153/85 07/22/17 14:22 Pulse Ox 96 07/22/17 14:22 Intake & Output 07/22/17 07/22/17 07/23/17 06:59 18:59 06:59 Intake Total 237 240 Output Total 100 25 50 Balance -100 212 190 Weight 108.862 kg Intake: Oral 237 240 Output: Drainage 100 25 50 Ileostomy 100 Left Abdomen 10 10 Lower Abdomen 15 40 Other: Voiding Method Toilet Toilet Toilet # Voids 1 1 2 # Bowel Movements 125 - Exam Pleasant 61-year-old male who suffers from obesity is with postoperative pain HEENT: Anicteric conjunctiva are pink and moist nasal mucosa grossly intact without significant lesions, there is no thrush. Neck: The neck is supple without significant lymphadenopathy or thyromegaly. Lungs: Good bilateral air entry expiratory wheezes are scattered There is no significant bronchial sounds. There is no egophony or dullness. Heart: Regular rate and rhythm with an audible S1-S2, no S3 no S4. There is no significant murmur click or rub, PMI was nondisplaced. Abdomen: Ileostomy in place, stoma is pink and healthy in appearance, abdomen has diffuse tenderness postoperative period not truly rigid. No organomegaly is noted Extremities: The upper extremities have excellent pulses they are symmetric, no significant petechiae or telangiectasia. No splinter hemorrhages were noted. The lower extremities are free from significant edema. The peripheral pulses were 2+ and symmetric. Neuro: Awake alert oriented to person place and time. There are no acute new gross focal sensory motor deficits. - Labs CBC & Chem 7: 07/22/17 06:33 07/22/17 06:33 Labs: Abnormal Lab Results - Last 24 Hours (Table) 07/22/17 07/22/17 Range/Units 06:33 06:33 WBC 19.2 H (3.8-10.6) k/uL RBC 4.28 L (4.30-5.90) m/uL Hgb 12.7 L (13.0-17.5) gm/dL Hct 38.6 L (39.0-53.0) % Neutrophils # 16.6 H (1.3-7.7) k/uL Lymphocytes # 0.8 L (1.0-4.8) k/uL Sodium 149 H (137-145) mmol/L Chloride 116 H (98-107) mmol/L BUN 33 H (9-20) mg/dL Glucose 131 H (74-99) mg/dL Calcium 8.1 L (8.4-10.2) mg/dL Total Bilirubin 2.2 H (0.2-1.3) mg/dL AST 65 H (17-59) U/L Total Protein 4.8 L (6.3-8.2) g/dL Albumin 2.4 L (3.5-5.0) g/dL Microbiology - Last 24 Hours (Table) 07/21/17 11:00 Gram Stain - Preliminary [facility] Body Fluid Culture - Preliminary 07/21/17 11:40 Gram Stain - Preliminary [facility] Body Fluid Culture - Preliminary 07/19/17 19:13 Anaerobic Culture - Preliminary Abdomen Laboratory Results WBC 19.2 k/uL (3.8-10.6) H 07/22/17 06:33 RBC 4.28 m/uL (4.30-5.90) L 07/22/17 06:33 Hgb 12.7 gm/dL (13.0-17.5) L 07/22/17 06:33 Hct 38.6 % (39.0-53.0) L 07/22/17 06:33 MCV 90.1 fL (80.0-100.0) 07/22/17 06:33 MCH 29.7 pg (25.0-35.0) 07/22/17 06:33 MCHC 33.0 g/dL (31.0-37.0) 07/22/17 06:33 RDW 14.5 % (11.5-15.5) 07/22/17 06:33 Plt Count 308 k/uL (150-450) 07/22/17 06:33 Neutrophils % 86 % 07/22/17 06:33 Neutrophils % (Manual) 56 % 07/19/17 06:32 Band Neutrophils % 32 % 07/19/17 06:32 Lymphocytes % 4 % 07/22/17 06:33 Lymphocytes % (Manual) 2 % 07/19/17 06:32 Monocytes % 5 % 07/22/17 06:33 Monocytes % (Manual) 9 % 07/19/17 06:32 Eosinophils % 1 % 07/22/17 06:33 Basophils % 1 % 07/22/17 06:33 Metamyelocytes % 1 % 07/19/17 06:32 Myelocytes % 1 % 07/19/17 06:32 Neutrophils # 16.6 k/uL (1.3-7.7) H 07/22/17 06:33 Neutrophils # (Manual) 8.80 k/uL (1.3-7.7) H 07/19/17 06:32 Lymphocytes # 0.8 k/uL (1.0-4.8) L 07/22/17 06:33 Lymphocytes # (Manual) 0.20 k/uL (1.0-4.8) L 07/19/17 06:32 Monocytes # 1.0 k/uL (0-1.0) 07/22/17 06:33 Monocytes # (Manual) 0.91 k/uL (0-1.0) 07/19/17 06:32 Eosinophils # 0.1 k/uL (0-0.7) 07/22/17 06:33 Basophils # 0.2 k/uL (0-0.2) 07/22/17 06:33 Metamyelocytes # (Man) 0.10 k/uL (0) H 07/19/17 06:32 Myelocytes # (Manual) 0.10 k/uL (0) H 07/19/17 06:32 Nucleated RBCs 0 /100 WBC (0-0) 07/19/17 06:32 Manual Slide Review Performed 07/22/17 06:33 Toxic Granulation Present 07/22/17 06:33 Dohle Bodies Present 07/19/17 06:32 Large Platelets Present 07/19/17 06:32 RBC Morphology Normal 07/22/17 06:33 Poikilocytosis (manual Present 07/19/17 06:32 Sodium 149 mmol/L (137-145) H 07/22/17 06:33 Potassium 4.2 mmol/L (3.5-5.1) 07/22/17 06:33 Chloride 116 mmol/L (98-107) H 07/22/17 06:33 Carbon Dioxide 26 mmol/L (22-30) 07/22/17 06:33 Anion Gap 7 mmol/L 07/22/17 06:33 BUN 33 mg/dL (9-20) H 07/22/17 06:33 Creatinine 0.85 mg/dL (0.66-1.25) 07/22/17 06:33 Est GFR (CKD-EPI)AfAm >90 (>60 ml/min/1.73 sqM) 07/22/17 06:33 Est GFR (CKD-EPI)NonAf >90 (>60 ml/min/1.73 sqM) 07/22/17 06:33 Glucose 131 mg/dL (74-99) H 07/22/17 06:33 Calcium 8.1 mg/dL (8.4-10.2) L 07/22/17 06:33 Phosphorus 2.8 mg/dL (2.5-4.5) 07/20/17 06:45 Magnesium 2.8 mg/dL (1.6-2.3) H 07/20/17 06:45 Total Bilirubin 2.2 mg/dL (0.2-1.3) H 07/22/17 06:33 AST 65 U/L (17-59) H 07/22/17 06:33 ALT 48 U/L (21-72) 07/22/17 06:33 Alkaline Phosphatase 80 U/L (38-126) 07/22/17 06:33 Troponin I <0.012 ng/mL (0.000-0.034) 07/17/17 08:50 Total Protein 4.8 g/dL (6.3-8.2) L 07/22/17 06:33 Albumin 2.4 g/dL (3.5-5.0) L 07/22/17 06:33 Carcinoembryonic Ag 1.0 ng/mL (0.0-4.9) 07/16/17 06:53 Blood Type A Positive 07/10/17 09:43 Blood Type Confirm A Positive 07/15/17 11:50 Blood Type Recheck CABO Indicated 07/10/17 09:43 Antibody Screen NEGATIVE 07/10/17 09:43 Spec Expiration Date 07/17/2017 - 2343 07/10/17 09:43 Microbiology 07/21/17 11:00 [facility] Gram Stain - Preliminary 07/21/17 11:00 [facility] Body Fluid Culture - Preliminary 07/21/17 11:40 [facility] Gram Stain - Preliminary 07/21/17 11:40 [facility] Body Fluid Culture - Preliminary 07/19/17 19:13 Abdomen Anaerobic Culture - Preliminary 07/19/17 19:13 Abdomen Gram Stain - Final 07/19/17 19:13 Abdomen Wound Culture - Final Assessment and Plan (1) Malignant neoplasm of descending colon Current Visit: Yes Status: Acute Code(s): C18.6 - MALIGNANT NEOPLASM OF DESCENDING COLON SNOMED Code(s): 283276602 (2) S/P colon resection Current Visit: Yes Status: Acute Code(s): Z90.49 - ACQUIRED ABSENCE OF OTHER SPECIFIED PARTS OF DIGESTIVE TRACT SNOMED Code(s): 649894030 (3) Tobacco abuse Current Visit: Yes Status: Acute Code(s): Z72.0 - TOBACCO USE SNOMED Code( s): 491591525 (4) Acute peritonitis Narrative/Plan: 61-year-old male presents to Hospital for the scheduled resection of his colon because of his colon cancer. The patient was a high risk patient because of his history of tobacco smoking before procedure, did have cardiac catheterization and was found evidence of only mild coronary artery disease. The patient has done well postoperatively except he then developed evidence of abdominal distention and pain and was found evidence of feculent peritonitis from the disruption of the end-to-end anastomosis. The patient was converted to an ileostomy. At the time of the procedure surgeon does not relate any significant colitis. The patient is now showing some improvement. He does have leukocytosis related to his peritonitis and recent surgery. He will continue with local maneuvers to improve his discomforts. He is given some techniques for abdominal support for coughing and motion. Antimicrobial therapy currently is with Levaquin and Flagyl which she is responding very well to. Cultures are in process which will further help direct his antibiotics. Potentially he will utilize this is an oral regimen as he transitions to oral antibiotics therapy in the future. His albumin is low and will require significant protein supplementation postoperatively to improve his recovery. 07/22/2017 reveals the patient to have further improvement. He is up and about walking in his room and sitting in the chair without difficulties. His abdominal pain is minimal. He would like to have his diet advanced since he's having no difficulties with the current fluid intake that he is having. He's having no fevers or chills. In general has a marked improvement of his status. Leukocytosis is mildly increased tension be monitored. However with his improving clinical status appears to not be having any acute difficulties. However with his feculent peritonitis will need to have monitoring. Continue antibiotic therapy which may transition to oral appetite therapy once he has adequately gastrointestinal function. If diet is advanced tomorrow and is tolerated then maybe transition to oral antibiotic therapy and discharged. Current Visit: Yes Status: Acute Code(s): K65.0 - GENERALIZED (ACUTE) PERITONITIS SNOMED Code(s): 30910670
[2017-07-23] MEDS: METOCLOPRAMIDE 5 MG/ML 2 ML VIAL IVP SCH ×4 (00:41→17:13)
[2017-07-23] MEDS: metroNIDAZOLE-NS PMX 500 MG in SALINE 1 100ML.BAG IVPB SCH ×3 (00:41→15:28)
[2017-07-23] MEDS: HYDROcodone/APAP 7.5-325MG 1 EACH TAB PO PRN ×2 (03:14→11:32)
[2017-07-23] MEDS: ACETAMINOPHEN TAB 500 MG TAB PO PRN (06:22)
[2017-07-23 07:35] LABS: HCT 39.6 % (39.0-53.0); HGB 12.4 gm/dL (13.0-17.5); Hypochromasia Slight; MCH 28.9 pg (25.0-35.0); MCHC 31.3 g/dL (31.0-37.0); MCV 92.1 fL (80.0-100.0); Mean Platelet Volume 9.4; Platelet Count 326 k/uL (150-450); RDW 14.5 % (11.5-15.5); WBC 24.4 k/uL (3.8-10.6)
[2017-07-23 07:46] LABS: ALT 44 U/L (21-72); AST 52 U/L (17-59); Albumin 2.3 g/dL (3.5-5.0); Alkaline Phosphatase 97 U/L (38-126); Anion Gap 10 mmol/L; Blood Urea Nitrogen 19 mg/dL (9-20); Carbon Dioxide 26 mmol/L (22-30); Chloride 113 mmol/L (98-107); Glucose 112 mg/dL (74-99); Potassium 3.9 mmol/L (3.5-5.1); Sodium 149 mmol/L (137-145); Total Bilirubin 1.7 mg/dL (0.2-1.3); Total Protein 4.7 g/dL (6.3-8.2)
[2017-07-23] MEDS: HEPARIN SODIUM,PORCINE 5,000 UNIT/ML 1 ML VIAL SQ SCH ×2 (08:24→19:38)
[2017-07-23] MEDS: TAMSULOSIN 0.4 MG CAP.ER.24H PO SCH (08:24)
[2017-07-23] MEDS: PANTOPRAZOLE 40 MG/10 ML VIAL IVP SCH (08:25)
[2017-07-23] MEDS: METOPROLOL TARTRATE 50 MG TAB PO SCH ×2 (08:25→19:39)
[2017-07-23] MEDS ORDERED: RX INFO: IV CONTRAST WAS GIVEN 1 EACH MISC MISCELLANE PRN (08:38)
[2017-07-23] MEDS: IOPAMIDOL-300 CONTRAST 30 ML VIAL (ORAL USE) PO PRN ×2 (09:07→10:09)
[2017-07-23] MEDS: LEVOFLOXACIN 500MG-D5W PMX 500 MG in DEXTROSE/WATER 1 100ML.BAG IVPB SCH (09:07)
[2017-07-23 09:53] LABS: Band Neutrophils % 1 %; Eosinophils # (M) 0.73 k/uL (0-0.7); Lymphocytes # (M) 3.17 k/uL (1.0-4.8); Metamyelocytes # (M) 0.98 k/uL (0); Metamyelocytes % 4 %; Monocytes # (M) 2.44 k/uL (0-1.0); Myelocytes # (M) 1.22 k/uL (0); Myelocytes % 5 %; Neutrophils % (M) 67 %; Nucleated Red Blood Cells 0 /100 WBC (0-0); Total Cells Counted 200
[2017-07-23 09:54] LABS: Poikilocytosis (M) Present; Toxic Granulation Present
--- NOTE | 2017-07-23 10:25 | P.PN ---
<Denise Huynh M - Last Filed: 07/23/17 10:13> Subjective Progress Note Date: 07/23/17 61-year-old male seen and examined. Patient is up ambulating in the hallway. Patient reports that this morning he did eat a large percentage of his diet states after developed cramping increased abdominal pain increased distention. Patient states the ostomy had 300 out last evening scant amount of stool noted in the ostomy bag this morning abdomen is distended. Patient states passing gas. Continues to report crampy sensation. [address] straw-colored drainage noted white counts morning 24.4. Patient's being followed by infectious disease. Temp is 97.5 this morning Patient states he's anxious to go home" postoperative day #6 status post colon resection, done on July 15 POD 3 abdominal washout with ileostomy. Done July 19 Objective - Vital Signs Vital signs: Vital Signs Temp 97.5 F L 07/23/17 06:51 Pulse 75 07/23/17 06:51 Resp 16 07/23/17 06:51 BP 155/87 07/23/17 06:51 Pulse Ox 94 L 07/23/17 06:51 Intake & Output 07/22/17 07/23/17 07/23/17 18:59 06:59 18:59 Intake Total 237 2140 240 Output Total 25 270 Balance 212 1870 240 Weight 108.862 kg Intake: Intake, IV Titration 1100 Amount Lactated Ringers 1,000 ml 1000 As IV .STK-MED ONE Rx#: [id number] metroNIDAZOLE-NS PMX 500 100 mg In Saline 1 100ml.bag @ 100 mls/hr IVPB Q8HR [facility] Rx#:[id number] Oral 237 1040 240 Output: Drainage 25 270 Ileostomy 200 Left Abdomen 10 25 Lower Abdomen 15 45 Other: Voiding Method Toilet Toilet # Voids 1 3 # Bowel Movements 125 - Exam Exam Pleasant 61-year-old gentleman up ambulating in the hallway reports having abdominal cramping after eating this morning no nausea no vomiting Lungs adequate air movement bilaterally on room air Heart S1-S2 audible and regular denying chest pain Abdomen abdominal binder on firm ostomy functioning liquid brown stool passing gas [address] straw color secretions surgical dressing site dry no nausea no vomiting urinating no difficulty Extremities Venodyne's on to the bilateral lower extremities denying any calf tenderness - Labs CBC & Chem 7: 07/23/17 06:43 07/23/17 06:43 Labs: Abnormal Lab Results - Last 24 Hours (Table) 07/23/17 07/23/17 Range/Units 06:43 06:43 WBC 24.4 H (3.8-10.6) k/uL Hgb 12.4 L (13.0-17.5) gm/dL Neutrophils # (Manual) 16.50 H (1.3-7.7) k/uL Monocytes # (Manual) 2.44 H (0-1.0) k/uL Eosinophils # (Manual) 0.73 H (0-0.7) k/uL Metamyelocytes # (Man) 0.98 H (0) k/uL Myelocytes # (Manual) 1.22 H (0) k/uL Sodium 149 H (137-145) mmol/L Chloride 113 H (98-107) mmol/L Glucose 112 H (74-99) mg/dL Calcium 8.0 L (8.4-10.2) mg/dL Total Bilirubin 1.7 H (0.2-1.3) mg/dL Total Protein 4.7 L (6.3-8.2) g/dL Albumin 2.3 L (3.5-5.0) g/dL Microbiology - Last 24 Hours (Table) 07/21/17 11:00 Gram Stain - Preliminary [facility] Body Fluid Culture - Preliminary 07/21/17 11:40 Gram Stain - Preliminary [facility] Body Fluid Culture - Preliminary Assessment and Plan Assessment: Impression Proximal descending colon cancer, diverticulosis sigmoid colon, chronic constipation Robotic-assisted da Keeley X I left colectomy with intraoperative flexible sigmoidoscopy done on July 15 Fixed tumor involving the proximal descending colon highly suspicious for stage III disease. Exploratory laparotomy with abdominal washout 9 L normal saline, resection of colon colon anastomosis, ileostomy creation right lower quadrant, placement of ESTELA drain upper abdomen, EGD done July 19 for Diffuse fecal peritonitis involving the upper abdomen, diffuse colitis of the ascending transverse colon and remnant sigmoid colon, endoscopy demonstrating no gastric or duodenal perforation, anastomosis resected, ileostomy creation performed to avoid diffuse colitis Leukocytosis persist infectious disease following Tobacco abuse Morbid obesity BMI 35 due to excess calories Plan Continue postop surgical care Follow up on pending CAT scan abdomen and pelvis oral and IV Follow-up on Doppler studies to rule out a DVT to the lower extremities Increase activity repeat labs in the morning Pain control Start Flomax 0.8mg now DVT and GI prophylaxis The above impression and plan of care have been discussed and directed by signing physician. Denise Huynh nurse practitioner acting as scribe for signing physician. <Jimi,Karen N - Last Filed: 07/23/17 10:51> Objective - Vital Signs Vital signs: Vital Signs Temp 97.5 F L 07/23/17 06:51 Pulse 75 07/23/17 06:51 Resp 16 07/23/17 06:51 BP 155/87 07/23/17 06:51 Pulse Ox 94 L 07/23/17 06:51 Intake & Output 07/22/17 07/23/17 07/23/17 18:59 06:59 18:59 Intake Total 237 2140 240 Output Total 25 270 Balance 212 1870 240 Weight 108.862 kg Intake: Intake, IV Titration 1100 Amount Lactated Ringers 1,000 ml 1000 As IV .[facility]K-MED ONE Rx#: [id number] metroNIDAZOLE-NS PMX 500 100 mg In Saline 1 100ml.bag @ 100 mls/hr IVPB Q8HR [facility] Rx#:[id number] Oral 237 1040 240 Output: Drainage 25 270 Ileostomy 200 Left Abdomen 10 25 Lower Abdomen 15 45 Other: Voiding Method Toilet Toilet # Voids 1 3 1 # Bowel Movements 125 - Labs CBC & Chem 7: 07/23/17 06:43 07/23/17 06:43 Labs: Abnormal Lab Results - Last 24 Hours (Table) 07/23/17 07/23/17 Range/Units 06:43 06:43 WBC 24.4 H (3.8-10.6) k/uL Hgb 12.4 L (13.0-17.5) gm/dL Neutrophils # (Manual) 16.50 H (1.3-7.7) k/uL Monocytes # (Manual) 2.44 H (0-1.0) k/uL Eosinophils # (Manual) 0.73 H (0-0.7) k/uL Metamyelocytes # (Man) 0.98 H (0) k/uL Myelocytes # (Manual) 1.22 H (0) k/uL Sodium 149 H (137-145) mmol/L Chloride 113 H (98-107) mmol/L Glucose 112 H (74-99) mg/dL Calcium 8.0 L (8.4-10.2) mg/dL Total Bilirubin 1.7 H (0.2-1.3) mg/dL Total Protein 4.7 L (6.3-8.2) g/dL Albumin 2.3 L (3.5-5.0) g/dL Microbiology - Last 24 Hours (Table) 07/21/17 11:00 Gram Stain - Preliminary [facility] Body Fluid Culture - Preliminary 07/21/17 11:40 Gram Stain - Preliminary [facility] Body Fluid Culture - Preliminary Assessment and Plan (1) Malignant neoplasm of descending colon Current Visit: Yes Status: Acute Code(s): C18.6 - MALIGNANT NEOPLASM OF DESCENDING COLON SNOMED Code(s): 839288987 (2) Morbid obesity due to excess calories Current Visit: Yes Status: Acute Code(s): E66.01 - MORBID (SEVERE) OBESITY DUE TO EXCESS CALORIES SNOMED Code(s): 620025098 (3) Tobacco abuse Current Visit: Yes Status: Acute Code(s): Z72.0 - TOBACCO USE SNOMED Code( s): 678318829 (4) S/P colon resection Current Visit: Yes Status: Acute Code(s): Z90.49 - ACQUIRED ABSENCE OF OTHER SPECIFIED PARTS OF DIGESTIVE TRACT SNOMED Code(s): 293743375
--- NOTE | 2017-07-23 11:05 | CT ---
EXAMINATION TYPE: CT abdomen pelvis w con DATE OF EXAM: 07/23/2017 COMPARISON: July 18, 2017 HISTORY: Pt having blaoting post colon resection and colostomy. Sx hx- Appendectomy, Rt shoulder, Rt knee CT DLP: 2382.4 mGycm CONTRAST: CT scan of the abdomen and pelvis is performed with Oral Contrast and with IV Contrast, patient injec lance with 100 mL of Isovue 300. FINDINGS: LUNG BASES-: Small right-sided pleural effusion with compressive atelectasis. LIVER/GB: No calcified gallstones. No space occupying hepatic lesion. Biliary tree is of normal ca liber. PANCREAS: No inflammation. No distinct mass. SPLEEN: No splenic enlargement. No lesion seen. ADRENALS: No nodule. No thickening. KIDNEYS/BLADDER: No hydronephrosis. No nephrolithiasis. No distinct renal mass. Urinary bladder g rossly unremarkable. BOWEL: Upper abdominal drainage catheter is noted. Midline skin adelina again identified. Ostomy iden tified right mid to right lower quadrant. Additional drainage catheter seen within the pelvis. While there is improvement of pneumoperitoneum there is a new collection of free air adjacent to the descen ding colonic and anastomotic site with adjacent fluid. Small leak is difficult to exclude. Mesenteric and omental stranding persists likely postoperative in nature. There is distention of small bowel co mpatible with ileus. There is wall thickening of the right hemicolon which may reflect underlying col itis. GENITAL ORGANS: No gross abnormality. LYMPH NODES: No greater than 1cm abdominal or pelvic lymph nodes are appreciated. AORTA: No significant abnormality. OSSEOUS STRUCTURES: No significant abnormality is seen. OTHER: No significant additional abnormality is seen. IMPRESSION: 1. While there is improvement of pneumoperitoneum there is a new collection of free air adjacent to t he descending colonic anastomotic site with adjacent fluid. Small leak is difficult to exclude. 2. There is wall thickening of the right hemicolon which may reflect underlying colitis. 3. Small bowel ileus.
--- NOTE | 2017-07-23 14:09 | US ---
EXAMINATION TYPE: US venous doppler duplex LE DATE OF EXAM: 07/23/2017 1:49 PM COMPARISON: NONE CLINICAL HISTORY: swollen legs post surgery. Difficult exam due to edema SIDE PERFORMED: Bilateral TECHNIQUE: The lower extremity deep venous system is examined utilizing real time linear array sonog adelaida with graded compression, doppler sonography and color-flow sonography. VESSELS IMAGED: External Iliac Vein (EIV) Common Femoral Vein Deep Femoral Vein Greater Saphenous Vein * Femoral Vein Popliteal Vein Small Saphenous Vein * Proximal Calf Veins (* superficial vessels) Right Leg: Appears negative for DVT Left Leg: Appears negative for DVT Edema channels are present within the lower extremities. IMPRESSION: Grayscale, color doppler, spectral doppler imaging performed of the deep veins of the lo wer extremities. There is normal flow, compressibility, vascular waveforms. No evident deep venous thrombosis at or above the knees, technologist reports is technically difficult exam.
[2017-07-23] MEDS: MORPHINE SULFATE/PF 10MG/10ML VL IVP PRN ×2 (15:30→20:36)
[2017-07-23] MEDS: ONDANSETRON 4 MG/2 ML VIAL IVP PRN (15:38)
--- NOTE | 2017-07-23 15:40 | P.PN ---
Progress Note - Text Progress Note Date: 07/23/17 Additional imaging obtained with CT reviewed showing pneumoperitoneum resolved. Area of concern along previous anastomosis with air. Ileus confirmed. CT scan reviewed with radiologist including interventional radiologist. Will plan for drainage as patient has leukocytosis over 24,000. NGT placed with over 600 mL out. Doppler studies negative for DVTs for bilateral lower extremity swelling. NPO except ice chips. May consider TPN and PICC line.
--- NOTE | 2017-07-23 19:02 | PN ---
PROGRESS NOTE DATE OF SERVICE: 07/23/2017 Patient is seen on the floor in his room, resting in bed and had an NG tube in place. Claims he had an episode of vomiting when he came back from the Doppler study. VITAL SIGNS: Temp 97.8, pulse 95, respirations 20, blood pressure 163/96. HEENT: Atraumatic, normocephalic. Pupils equal and react to light. Extraocular intact. Buccal mucosa is fair. Neck is supple. No goiter or lymphadenopathy. JVD is negative. No carotid bruit heard. LUNGS: Clear to auscultate. No rales, rhonchi, or wheezes. Heart is regular rate and rhythm without any murmurs or gallop rhythm. Abdomen is firm and distended and diffuse tenderness. The bowel sounds are hypoactive. EXTREMITIES: 1+ edema. No tenderness. NEUROLOGICAL EXAMINATION: Cranial nerves 2-12 grossly intact. No gross motor sensory deficit. LABS: CBC: White blood count of 24.4, hematocrit 39.6 and platelet count of 326. Chemical profile: Sodium 149, potassium 3.9, chloride 113, bicarb 26, BUN of 19, creatinine 0.7. CT of the abdomen shows a pneumoperitoneum which is resolved but there is some area of concern with some air at the anastomosis site with ileus. ASSESSMENT: 1. Proximal descending colon cancer with diverticulosis of the sigmoid colon. The patient is status post exploratory laparotomy with abdominal washout, resection of colon and resection of colon anastomosis with ileostomy creation of right lower quadrant and placement of ESTELA drain. 2. Diffuse fecal peritonitis. 3. Diffuse colitis. 4. Persistent leukocytosis. 5. Morbid obesity. The patient had NG tube placed again. Surgery is planning to continue IV antibiotics and planning on drainage of the pocket of infection due to rising white blood count. Patient's Doppler studies negative for DVT. Further recommendations per Surgical Service. MMODL / IJN: [id number] /
[2017-07-23] MEDS: PIPERACILLIN-TAZOBACTAM 3.375 GM in DEXTROSE/WATER 1 50ML.BAG IVPB SCH (19:37)
[2017-07-23] MEDS: diphenhydrAMINE 50 MG/ML 1 ML VIAL IVP PRN (20:36)
--- NOTE | 2017-07-23 23:47 | P.PN ---
Subjective Progress Note Date: 07/23/17 Principal diagnosis: Peritonitis 61-year-old male who has a history of obesity underwent a colonoscopy and was without evidence of a adenocarcinoma of his colon and consequently is admitted for elective resection of the ascending colon tumor. The patient had a preoperative metastatic workup that was negative and had adequate cardiac risk and constantly was taken to the operating room for the resection of the colon lesion with a primary anastomosis. Postoperatively the patient was not feeling well he had further interventions and imaging studies. With clinical evidence of peritonitis he was taken back to the operating room and there was evidence of the anastomotic leak. Because of this ileostomy was placed and the patient had high-volume lavage of the abdominal cavity. Concern was the feculent peritonitis the infectious diseases consultation was requested. This pleasant gentleman other than complaining of abdominal pain is doing relatively well. With minimal assistance he was able to go from a sitting position back into bed. He is denying high-grade fevers chills or rigors or sweats. He believes he feels better today than yesterday. He denies nausea and has had no emesis. No flatus. He is denying any other new acute difficulties. 07/22/2017 reveals the patient be considerably improved. He is upright walking sitting in the chair and utilizing his incentive spirometer without difficulties. He has been ingesting fluids with no difficulties at all. Is anxious to have an advancement of his diet. He is not having much abdominal pain. Has adequate output through the ileostomy. 07/23/2017 the patient's leukocytosis has further increased to 24.4. The case is discussed with the surgeon. Duplex scans performed because he had some lower extremity edema with no evidence of any deep venous thrombosis. As discussed she's now gone for a computed tomography scan that is showing evidence of some potential worsening at the anastomotic site. Patient fortunately does not feel very poorly. Objective - Vital Signs Vital signs: Vital Signs Temp 97.8 F 07/23/17 15:00 Pulse 75 07/23/17 15:00 Resp 20 07/23/17 15:00 BP 163/96 07/23/17 15:00 Pulse Ox 97 07/23/17 15:00 Intake & Output 07/23/17 07/23/17 07/24/17 06:59 18:59 06:59 Intake Total 2140 358 Output Total 270 915 Balance 1870 -557 Weight 108.862 kg Intake: Intake, IV Titration 1100 Amount Lactated Ringers 1,000 ml 1000 As IV .[facility] Rx#: [id number] metroNIDAZOLE-NS PMX 500 100 mg In Saline 1 100ml.bag @ 100 mls/hr IVPB Q8HR [facility] Rx#:[id number] Oral 1040 358 Output: Gastric Drainage 900 Drainage 270 15 Ileostomy 200 Left Abdomen 25 5 Lower Abdomen 45 10 Other: Voiding Method Toilet # Voids 3 1 # Bowel Movements 125 - Exam Pleasant 61-year-old male who suffers from obesity is with postoperative pain HEENT: Anicteric conjunctiva are pink and moist nasal mucosa grossly intact without significant lesions, there is no thrush. Neck: The neck is supple without significant lymphadenopathy or thyromegaly. Lungs: Good bilateral air entry expiratory wheezes are scattered There is no significant bronchial sounds. There is no egophony or dullness. Heart: Regular rate and rhythm with an audible S1-S2, no S3 no S4. There is no significant murmur click or rub, PMI was nondisplaced. Abdomen: Ileostomy in place, stoma is pink and healthy in appearance, abdomen has diffuse tenderness postoperative period not truly rigid. No organomegaly is noted Extremities: The upper extremities have excellent pulses they are symmetric, no significant petechiae or telangiectasia. No splinter hemorrhages were noted. The lower extremities are free from significant edema. The peripheral pulses were 2+ and symmetric. Neuro: Awake alert oriented to person place and time. There are no acute new gross focal sensory motor deficits. - Labs CBC & Chem 7: 07/23/17 06:43 07/23/17 06:43 Labs: Abnormal Lab Results - Last 24 Hours (Table) 07/23/17 07/23/17 Range/Units 06:43 06:43 WBC 24.4 H (3.8-10.6) k/uL Hgb 12.4 L (13.0-17.5) gm/dL Neutrophils # (Manual) 16.50 H (1.3-7.7) k/uL Monocytes # (Manual) 2.44 H (0-1.0) k/uL Eosinophils # (Manual) 0.73 H (0-0.7) k/uL Metamyelocytes # (Man) 0.98 H (0) k/uL Myelocytes # (Manual) 1.22 H (0) k/uL Sodium 149 H (137-145) mmol/L Chloride 113 H (98-107) mmol/L Glucose 112 H (74-99) mg/dL Calcium 8.0 L (8.4-10.2) mg/dL Total Bilirubin 1.7 H (0.2-1.3) mg/dL Total Protein 4.7 L (6.3-8.2) g/dL Albumin 2.3 L (3.5-5.0) g/dL Microbiology - Last 24 Hours (Table) 07/21/17 11:40 Gram Stain - Preliminary [facility] Body Fluid Culture - Preliminary Coagulase Negative Staph 07/21/17 11:00 Gram Stain - Preliminary [facility] Body Fluid Culture - Preliminary Laboratory Results WBC 24.4 k/uL (3.8-10.6) H 07/23/17 06:43 RBC 4.30 m/uL (4.30-5.90) 07/23/17 06:43 Hgb 12.4 gm/dL (13.0-17.5) L 07/23/17 06:43 Hct 39.6 % (39.0-53.0) 07/23/17 06:43 MCV 92.1 fL (80.0-100.0) 07/23/17 06:43 MCH 28.9 pg (25.0-35.0) 07/23/17 06:43 MCHC 31.3 g/dL (31.0-37.0) 07/23/17 06:43 RDW 14.5 % (11.5-15.5) 07/23/17 06:43 Plt Count 326 k/uL (150-450) 07/23/17 06:43 Neutrophils % Not Reportable 07/23/17 06:43 Neutrophils % (Manual) 67 % 07/23/17 06:43 Band Neutrophils % 1 % 07/23/17 06:43 Lymphocytes % Not Reportable 07/23/17 06:43 Lymphocytes % (Manual) 13 % 07/23/17 06:43 Monocytes % Not Reportable 07/23/17 06:43 Monocytes % (Manual) 10 % 07/23/17 06:43 Eosinophils % Not Reportable 07/23/17 06:43 Eosinophils % (Manual) 3 % 07/23/17 06:43 Basophils % Not Reportable 07/23/17 06:43 Metamyelocytes % 4 % 07/23/17 06:43 Myelocytes % 5 % 07/23/17 06:43 Neutrophils # Not Reportable 07/23/17 06:43 Neutrophils # (Manual) 16.50 k/uL (1.3-7.7) H 07/23/17 06:43 Lymphocytes # Not Reportable 07/23/17 06:43 Lymphocytes # (Manual) 3.17 k/uL (1.0-4.8) 07/23/17 06:43 Monocytes # Not Reportable 07/23/17 06:43 Monocytes # (Manual) 2.44 k/uL (0-1.0) H 07/23/17 06:43 Eosinophils # Not Reportable 07/23/17 06:43 Eosinophils # (Manual) 0.73 k/uL (0-0.7) H 07/23/17 06:43 Basophils # Not Reportable 07/23/17 06:43 Metamyelocytes # (Man) 0.98 k/uL (0) H 07/23/17 06:43 Myelocytes # (Manual) 1.22 k/uL (0) H 07/23/17 06:43 Nucleated RBCs 0 /100 WBC (0-0) 07/23/17 06:43 Manual Slide Review Performed 07/23/17 06:43 Toxic Granulation Present 07/23/17 06:43 Dohle Bodies Present 07/19/17 06:32 Large Platelets Present 07/19/17 06:32 RBC Morphology Normal 07/22/17 06:33 Hypochromasia Slight 07/23/17 06:43 Poikilocytosis (manual Present 07/23/17 06:43 Sodium 149 mmol/L (137-145) H 07/23/17 06:43 Potassium 3.9 mmol/L (3.5-5.1) 07/23/17 06:43 Chloride 113 mmol/L (98-107) H 07/23/17 06:43 Carbon Dioxide 26 mmol/L (22-30) 07/23/17 06:43 Anion Gap 10 mmol/L 07/23/17 06:43 BUN 19 mg/dL (9-20) 07/23/17 06:43 Creatinine 0.77 mg/dL (0.66-1.25) 07/23/17 06:43 Est GFR (CKD-EPI)AfAm >90 (>60 ml/min/1.73 sqM) 07/23/17 06:43 Est GFR (CKD-EPI)NonAf >90 (>60 ml/min/1.73 sqM) 07/23/17 06:43 Glucose 112 mg/dL (74-99) H 07/23/17 06:43 Calcium 8.0 mg/dL (8.4-10.2) L 07/23/17 06:43 Phosphorus 2.8 mg/dL (2.5-4.5) 07/20/17 06:45 Magnesium 2.8 mg/dL (1.6-2.3) H 07/20/17 06:45 Total Bilirubin 1.7 mg/dL (0.2-1.3) H 07/23/17 06:43 AST 52 U/L (17-59) 07/23/17 06:43 ALT 44 U/L (21-72) 07/23/17 06:43 Alkaline Phosphatase 97 U/L (38-126) 07/23/17 06:43 Troponin I <0.012 ng/mL (0.000-0.034) 07/17/17 08:50 Total Protein 4.7 g/dL (6.3-8.2) L 07/23/17 06:43 Albumin 2.3 g/dL (3.5-5.0) L 07/23/17 06:43 Carcinoembryonic Ag 1.0 ng/mL (0.0-4.9) 07/16/17 06:53 Blood Type A Positive 07/10/17 09:43 Blood Type Confirm A Positive 07/15/17 11:50 Blood Type Recheck CABO Indicated 07/10/17 09:43 Antibody Screen NEGATIVE 07/10/17 09:43 Spec Expiration Date 07/17/2017 - 2583 07/10/17 09:43 Microbiology 07/21/17 11:40 Bakari-Ocampo Gram Stain - Preliminary 07/21/17 11:40 [facility] Body Fluid Culture - Preliminary Coagulase Negative Staph 07/21/17 11:00 [facility] Gram Stain - Preliminary 07/21/17 11:00 [facility] Body Fluid Culture - Preliminary 07/19/17 19:13 Abdomen Anaerobic Culture - Preliminary 07/19/17 19:13 Abdomen Gram Stain - Final 07/19/17 19:13 Abdomen Wound Culture - Final Assessment and Plan (1) Malignant neoplasm of descending colon Current Visit: Yes Status: Acute Code(s): C18.6 - MALIGNANT NEOPLASM OF DESCENDING COLON SNOMED Code(s): 980677536 (2) S/P colon resection Current Visit: Yes Status: Acute Code(s): Z90.49 - ACQUIRED ABSENCE OF OTHER SPECIFIED PARTS OF DIGESTIVE TRACT SNOMED Code(s): 466149886 (3) Tobacco abuse Current Visit: Yes Status: Acute Code(s): Z72.0 - TOBACCO USE SNOMED Code( s): 067918896 (4) Acute peritonitis Narrative/Plan: 61-year-old male presents to Hospital for the scheduled resection of his colon because of his colon cancer. The patient was a high risk patient because of his history of tobacco smoking before procedure, did have cardiac catheterization and was found evidence of only mild coronary artery disease. The patient has done well postoperatively except he then developed evidence of abdominal distention and pain and was found evidence of feculent peritonitis from the disruption of the end-to-end anastomosis. The patient was converted to an ileostomy. At the time of the procedure surgeon does not relate any significant colitis. The patient is now showing some improvement. He does have leukocytosis related to his peritonitis and recent surgery. He will continue with local maneuvers to improve his discomforts. He is given some techniques for abdominal support for coughing and motion. Antimicrobial therapy currently is with Levaquin and Flagyl which she is responding very well to. Cultures are in process which will further help direct his antibiotics. Potentially he will utilize this is an oral regimen as he transitions to oral antibiotics therapy in the future. His albumin is low and will require significant protein supplementation postoperatively to improve his recovery. 07/22/2017 reveals the patient to have further improvement. He is up and about walking in his room and sitting in the chair without difficulties. His abdominal pain is minimal. He would like to have his diet advanced since he's having no difficulties with the current fluid intake that he is having. He's having no fevers or chills. In general has a marked improvement of his status. Leukocytosis is mildly increased tension be monitored. However with his improving clinical status appears to not be having any acute difficulties. However with his feculent peritonitis will need to have monitoring. Continue antibiotic therapy which may transition to oral appetite therapy once he has adequately gastrointestinal function. If diet is advanced tomorrow and is tolerated then maybe transition to oral antibiotic therapy and discharged. 07/23/2017 reveals the patient to be feeling relatively well. However is without psychotic increased 24.4. Duplex scan without evidence of deep venous thrombosis. Computed tomography scan is abnormal with potential further leak. He's been made nothing by mouth for the surgeon and he is being evaluated for potential drainage. Given the ongoing difficulties at microbial therapy is altered to Zosyn and he will be monitored closely with antibiotic change. Current Visit: Yes Status: Acute Code(s): K65.0 - GENERALIZED (ACUTE) PERITONITIS SNOMED Code(s): 91320849
[2017-07-24] MEDS: METOCLOPRAMIDE 5 MG/ML 2 ML VIAL IVP SCH ×4 (03:00→20:08)
[2017-07-24] MEDS: PIPERACILLIN-TAZOBACTAM 3.375 GM in DEXTROSE/WATER 1 50ML.BAG IVPB SCH ×3 (03:00→20:45)
[2017-07-24 07:12] LABS: HGB 13.9 gm/dL (13.0-17.5); MCH 29.4 pg (25.0-35.0); MCV 89.1 fL (80.0-100.0); Mean Platelet Volume 8.5; Platelet Count 317 k/uL (150-450); RBC 4.71 m/uL (4.30-5.90); RDW 14.4 % (11.5-15.5); WBC 24.2 k/uL (3.8-10.6)
[2017-07-24 07:28] LABS: ALT 40 U/L (21-72); AST 55 U/L (17-59); Albumin 2.5 g/dL (3.5-5.0); Alkaline Phosphatase 125 U/L (38-126); Anion Gap 13 mmol/L; Blood Urea Nitrogen 15 mg/dL (9-20); Calcium 8.7 mg/dL (8.4-10.2); Carbon Dioxide 23 mmol/L (22-30); Chloride 112 mmol/L (98-107); Glucose 104 mg/dL (74-99); Potassium 4.4 mmol/L (3.5-5.1); Sodium 148 mmol/L (137-145); Total Bilirubin 1.9 mg/dL (0.2-1.3); Total Protein 5.2 g/dL (6.3-8.2)
[2017-07-24] MEDS: MORPHINE SULFATE/PF 10MG/10ML VL IVP PRN ×4 (08:26→18:20)
[2017-07-24] MEDS ORDERED: LEVOFLOXACIN 500 MG TAB PO SCH (09:00)
--- NOTE | 2017-07-24 09:23 | P.PN ---
Subjective Progress Note Date: 07/24/17 Principal diagnosis: Anastomotic leak Patient says he feels about the same. He was having some abdominal cramps this morning after drinking some apple juice. He does have a nasogastric tube in place that is used for suctioning the clear liquids that he does drink. He is having ileostomy output. He is afebrile. White blood cell count remains elevated at 24. Objective - Vital Signs Vital signs: Vital Signs Temp 98.4 F 07/24/17 02:25 Pulse 83 07/24/17 02:25 Resp 17 07/24/17 02:25 BP 144/90 07/24/17 02:25 Pulse Ox 97 07/24/17 02:25 Intake & Output 07/23/17 07/24/17 07/24/17 18:59 06:59 18:59 Intake Total 358 390 Output Total 915 20 Balance -557 370 Weight 108.862 kg Intake: Intake, IV Titration 150 Amount Piperacillin-Tazobactam 3 50 .375 gm In Dextrose/Water 1 50ml.bag @ 12.5 mls/hr IVPB Q8H [facility] Rx#: [id number] metroNIDAZOLE-NS PMX 500 100 mg In Saline 1 100ml.bag @ 100 mls/hr IVPB Q8HR [facility] Rx#:[id number] Oral 358 240 Output: Gastric Drainage 900 Drainage 15 20 Left Abdomen 5 10 Lower Abdomen 10 10 Other: Voiding Method Toilet # Voids 1 2 - Exam Abdomen: Soft, slightly distended, ostomy pink and functioning, dressing clean and dry, mild diffuse tenderness, ESTELA drains serous - Labs CBC & Chem 7: 07/24/17 06:40 07/24/17 06:40 Labs: Abnormal Lab Results - Last 24 Hours (Table) 07/23/17 07/24/17 07/24/17 Range/Units 06:43 06:40 06:40 WBC 24.4 H 24.2 H (3.8-10.6) k/uL Hgb 12.4 L (13.0-17.5) gm/dL Neutrophils # (Manual) 16.50 H (1.3-7.7) k/uL Monocytes # (Manual) 2.44 H (0-1.0) k/uL Eosinophils # (Manual) 0.73 H (0-0.7) k/uL Metamyelocytes # (Man) 0.98 H (0) k/uL Myelocytes # (Manual) 1.22 H (0) k/uL Sodium 148 H (137-145) mmol/L Chloride 112 H (98-107) mmol/L Glucose 104 H (74-99) mg/dL Total Bilirubin 1.9 H (0.2-1.3) mg/dL Total Protein 5.2 L (6.3-8.2) g/dL Albumin 2.5 L (3.5-5.0) g/dL Microbiology - Last 24 Hours (Table) 07/19/17 19:13 Anaerobic Culture - Final Abdomen 07/21/17 11:40 Gram Stain - Preliminary [facility] Body Fluid Culture - Preliminary Coagulase Negative Staph 07/21/17 11:00 Gram Stain - Preliminary [facility] Body Fluid Culture - Preliminary Assessment and Plan (1) Acute peritonitis Narrative/Plan: Encourage the patient to minimize any oral intake at this point. Continue nasogastric tube to suction. Increase activity levels. Monitor leukocytosis. Continue antibiotics per infectious disease. Patient apparently scheduled for percutaneous drain placement on Wednesday by interventional radiology. Current Visit: Yes Status: Acute Code(s): K65.0 - GENERALIZED (ACUTE) PERITONITIS SNOMED Code(s): 56722239
[2017-07-24] MEDS: PANTOPRAZOLE 40 MG TABLET PO SCH (12:16)
[2017-07-24] MEDS: METOPROLOL TARTRATE 50 MG TAB PO SCH ×2 (12:16→20:08)
[2017-07-24] MEDS: TAMSULOSIN 0.4 MG CAP.ER.24H PO SCH ×2 (12:16→13:42)
[2017-07-24] MEDS: HEPARIN SODIUM,PORCINE 5,000 UNIT/ML 1 ML VIAL SQ SCH ×2 (12:16→20:08)
[2017-07-24 12:42] LABS: Band Neutrophils % 3 %; Lymphocytes # (M) 0.97 k/uL (1.0-4.8); Metamyelocytes # (M) 0.48 k/uL (0); Metamyelocytes % 2 %; Monocytes # (M) 2.42 k/uL (0-1.0); Myelocytes # (M) 0.97 k/uL (0); Myelocytes % 4 %; Neutrophils % (M) 78 %; Nucleated Red Blood Cells 0 /100 WBC (0-0); Total Cells Counted 200
[2017-07-24] MEDS ORDERED: MORPHINE PCA 30 MG/30 ML SYRINGE IV PRN (13:50)
[2017-07-24] MEDS ORDERED: NALOXONE 0.4 MG/ML 1 ML VIAL IV PRN (13:50)
--- NOTE | 2017-07-24 16:24 | PN ---
PROGRESS NOTE Patient is sitting in a recliner. Does have an NG tube with tube suctioning for an anastomotic leak. Patient complains of abdominal bloating and pain in the lower part of abdomen. VITAL SIGNS: Temperature 98.4, pulse 83, respirations 17, blood pressure 144/90. HEENT: Atraumatic, normocephalic. Pupils equal and react to light. Extraocular movements intact. Buccal mucosa is fair. Neck is supple. No goiter or lymphadenopathy. JVD is negative. No carotid bruit heard. Lungs are clear to auscultation. No rales, rhonchi, or wheezes. Heart is regular rate and rhythm without any murmurs, gallop, rhythm. Abdomen is distended and firm. Bowel sounds are hypoactive. Patient has diffuse tenderness. LABS: CBC, white blood count 24.2, hemoglobin 13.9, hematocrit 42, and platelet count of 317. Chemical profile, sodium 148, potassium 4.4, chloride 112, bicarb 23, BUN 15, creatinine 0.9, glucose 104. ASSESSMENT: Status post exploratory laparotomy with abdominal washing with resection of colon and anastomosis. Patient is status post anastomotic leak. Patient continues to have NG tube to do intermittent suctioning. Does have ileostomy output. Surgical Service is following. PLAN: To continue with NG tube suctioning, increase activity and IV antibiotics are being managed by Infection Disease. Patient is scheduled for percutaneous drain placement on Wednesday by Interventional Radiology. MMODL / IJN: [id number] /
[2017-07-24] MEDS ORDERED: KETOROLAC 30 MG/ML 1 ML VIAL IVP STA (18:41)
--- NOTE | 2017-07-24 19:46 | P.PN ---
Subjective Progress Note Date: 07/24/17 Principal diagnosis: Colon cancer Patient is postoperative day #9 status post colon resection, POD 5 abdominal washout with ileostomy. This morning, the patient reported having acute pelvic pain radiating into his rectum which is new from yesterday where he was comfortable. No reports of nausea at the time of my evaluation. No reports of fevers or chills. As a result, his pain was uncontrolled. Additionally, patient had reported difficulty with urination. I was asked to come in as the rounding physician Dr. Gamez has been rounding on my behalf. Patient's family had requested additional input about his care. Patient also reports poor infectivity of morphine. He has had difficulty with sleeping. Reports swelling of the bilateral lower legs. DVT studies were negative. No reports of fevers or chills. He did have earlier nausea when his Flomax was held hence his urinary retention later on this afternoon. Since placement of his Valente catheter, over 500 mL+ urine was paulette. He reported persistent pelvic spasming. Morphine ENT CONSULTANT was ineffective. On review of medications, Toradol or go discontinued after 7 days. I had over 1hr+ plus conversation with the family who then added additional history for a prior urological problem including prostatitis with bleeding. Patient has had recent troubles with urination for which he is on schedule Flomax as a result. Patient's family is concern for recurrent prostatitis. Patient's family also requested transfer as he was scheduled for interventional radiology drainage on Wednesday, for which they wanted done now. As a result of the weekend, intervention radiologist is not available. I did review and discuss with the patient's family who had sought transfer to another facility who may provide interventional radiological services over the weekend. Options including [facility] was reviewed however per his 's request wanted [place]. Transfer paperwork was signed. After restarting Toradol, patient pain markedly improved and he was more discomfortable. He had elected to stay. Toradol has been reinstituted. Patient wishes potential transfer should his pain recurs in the morning. Objective - Vital Signs Vital signs: Vital Signs Temp 98.2 F 07/24/17 15:00 Pulse 105 H 07/24/17 15:00 Resp 16 07/24/17 15:00 BP 134/78 07/24/17 15:00 Pulse Ox 93 L 07/24/17 15:00 Intake & Output 07/24/17 07/24/17 07/25/17 06:59 18:59 06:59 Intake Total 390 Output Total 20 1000 Balance 370 -1000 Weight 108.862 kg Intake: Intake, IV Titration 150 Amount Piperacillin-Tazobactam 3 50 .375 gm In Dextrose/Water 1 50ml.bag @ 12.5 mls/hr IVPB Q8H [facility] Rx#: [id number] metroNIDAZOLE-NS PMX 500 100 mg In Saline 1 100ml.bag @ 100 mls/hr IVPB Q8HR [facility] Rx#:[id number] Oral 240 Output: Gastric Drainage 1000 Drainage 20 Left Abdomen 10 Lower Abdomen 10 Other: Voiding Method Toilet # Voids 2 - Exam PHYSICAL EXAM: GENERAL: Well-developed in acute distress in bed. HEENT: No scleral icterus. Extraocular movements grossly intact. Moist buccal mucosa. Edentulous. NECK: Supple without lymphadenopathy. CHEST: Equal bilateral excursions. increased respirations. CARDIOVASCULAR: Regular rate. Regular rhythm. Distal 2+ pulses. ABDOMEN: Soft, present but no severe distention. Focal tenderness along suprapubic and left lower abdomen. Previous stab incisions completely granulated including of right upper quadrant incision without cellulitis or infection. ESTELA X 2 serous ( ESTELA(A) - within the pelvis, ESTELA (B) - above the liver) . Ilestomy pink and viable with bilious drainage. Erythema noted along the lower midline abdomen. Midline incision with 2 adelina discontinued along the lower incision after cleansing the skin with chlorhexidine soap and water followed by chlor prep. Sterile Q-tip applied along the lower incision with minimal serosanguineous drainage. No signs of dehiscence. MUSCULOSKELETAL: No clubbing, cyanosis. Bilateral lower extremity edema 2+ extending to above knees. SKIN: Good skin turgor. : Paulette urine but clear. NEURO: Cranial nerves II-12 grossly intact. No focal or lateralizing signs. PSYCH: Alert and oriented to person place and time. - Labs CBC & Chem 7: 07/24/17 06:40 07/24/17 06:40 Labs: Abnormal Lab Results - Last 24 Hours (Table) 07/24/17 07/24/17 Range/Units 06:40 06:40 WBC 24.2 H (3.8-10.6) k/uL Neutrophils # (Manual) 19.60 H (1.3-7.7) k/uL Lymphocytes # (Manual) 0.97 L (1.0-4.8) k/uL Monocytes # (Manual) 2.42 H (0-1.0) k/uL Metamyelocytes # (Man) 0.48 H (0) k/uL Myelocytes # (Manual) 0.97 H (0) k/uL Sodium 148 H (137-145) mmol/L Chloride 112 H (98-107) mmol/L Glucose 104 H (74-99) mg/dL Total Bilirubin 1.9 H (0.2-1.3) mg/dL Total Protein 5.2 L (6.3-8.2) g/dL Albumin 2.5 L (3.5-5.0) g/dL Microbiology - Last 24 Hours (Table) 07/21/17 11:00 Gram Stain - Preliminary [facility] Body Fluid Culture - Preliminary 07/19/17 19:13 Anaerobic Culture - Final Abdomen Assessment and Plan (1) Malignant neoplasm of descending colon Current Visit: Yes Status: Acute Code(s): C18.6 - MALIGNANT NEOPLASM OF DESCENDING COLON SNOMED Code(s): 107922270 (2) Morbid obesity due to excess calories Current Visit: Yes Status: Acute Code(s): E66.01 - MORBID (SEVERE) OBESITY DUE TO EXCESS CALORIES SNOMED Code(s): 873651053 (3) Tobacco abuse Current Visit: Yes Status: Acute Code(s): Z72.0 - TOBACCO USE SNOMED Code( s): 412550948 (4) S/P colon resection Current Visit: Yes Status: Acute Code(s): Z90.49 - ACQUIRED ABSENCE OF OTHER SPECIFIED PARTS OF DIGESTIVE TRACT SNOMED Code(s): 387674943 (5) Prostatism Current Visit: Yes Status: Acute Code(s): N40.0 - BENIGN PROSTATIC HYPERPLASIA WITHOUT LOWER URINRY TRACT SYMP SNOMED Code(s): 87018923 (6) Hypertensive heart disease Current Visit: Yes Status: Acute Code(s): I11.9 - HYPERTENSIVE HEART DISEASE WITHOUT HEART FAILURE SNOMED Code(s): 75387983 (7) Obstructive uropathy Current Visit: Yes Status: Acute Code(s): N13.9 - OBSTRUCTIVE AND REFLUX UROPATHY, UNSPECIFIED SNOMED Code(s): 6863968 Plan: 1. Toradol scheduled reinstituted. 2. Patient requested discontinue morphine ENT CONSULTANT. 3. All paperwork for potential transfer performed. 4. Otherwise patient is scheduled for or drainage on Wednesday 5. Patient has baseline history of prostatitis including obstructive uropathy for which consultation to urology also performed. Flomax continued. 6. IV fluids adjusted. 7. Edema of the abdomen and lower extremities explained to family which is consistent with history of infection. 8. Recommend nothing by mouth except ice chips 9. Will discontinue spacer for ileostomy prior to discharge. 10. All care plan described to the patient and family with all questions addressed. 11. Dr. Gamez is covering on my behalf. 12. ID following for history of leukocytosis which is now stable at 24,000.
[2017-07-24] MEDS ORDERED: SODIUM CHLORIDE 0.9% 1,000 ML IV ONE (19:58)
[2017-07-24] MEDS: 0.9% NACL WITH KCL 20 MEQ/L 1,000 ML IV SCH (20:31)
--- NOTE | 2017-07-24 23:00 | P.PN ---
Subjective Progress Note Date: 07/24/17 Principal diagnosis: Peritonitis 61-year-old male who has a history of obesity underwent a colonoscopy and was without evidence of a adenocarcinoma of his colon and consequently is admitted for elective resection of the ascending colon tumor. The patient had a preoperative metastatic workup that was negative and had adequate cardiac risk and constantly was taken to the operating room for the resection of the colon lesion with a primary anastomosis. Postoperatively the patient was not feeling well he had further interventions and imaging studies. With clinical evidence of peritonitis he was taken back to the operating room and there was evidence of the anastomotic leak. Because of this ileostomy was placed and the patient had high-volume lavage of the abdominal cavity. Concern was the feculent peritonitis the infectious diseases consultation was requested. This pleasant gentleman other than complaining of abdominal pain is doing relatively well. With minimal assistance he was able to go from a sitting position back into bed. He is denying high-grade fevers chills or rigors or sweats. He believes he feels better today than yesterday. He denies nausea and has had no emesis. No flatus. He is denying any other new acute difficulties. 07/22/2017 reveals the patient be considerably improved. He is upright walking sitting in the chair and utilizing his incentive spirometer without difficulties. He has been ingesting fluids with no difficulties at all. Is anxious to have an advancement of his diet. He is not having much abdominal pain. Has adequate output through the ileostomy. 07/23/2017 the patient's leukocytosis has further increased to 24.4. The case is discussed with the surgeon. Duplex scans performed because he had some lower extremity edema with no evidence of any deep venous thrombosis. As discussed she's now gone for a computed tomography scan that is showing evidence of some potential worsening at the anastomotic site. Patient fortunately does not feel very poorly. 07/24/2017 patient's leukocytosis persists. As noted the computed tomography scan does show evidence of further fluid collection within the abdominal cavity. He will have a percutaneous guided drainage on Wednesday if he has further improvement. If he declines he may require further surgical intervention. Objective - Vital Signs Vital signs: Vital Signs Temp 99.1 F 07/24/17 19:00 Pulse 116 H 07/24/17 19:00 Resp 16 07/24/17 19:00 BP 127/88 07/24/17 19:00 Pulse Ox 95 07/24/17 19:00 Intake & Output 07/24/17 07/24/17 07/25/17 06:59 18:59 06:59 Intake Total 390 800 Output Total 20 1000 Balance 370 -200 Weight 108.862 kg Intake: Intake, IV Titration 150 800 Amount 0.9% NaCl with KCl 20 Meq 800 /l 1,000 ml @ 100 mls/hr IV .Q10H DAYANA Rx#: [id number] Piperacillin-Tazobactam 3 50 .375 gm In Dextrose/Water 1 50ml.bag @ 12.5 mls/hr IVPB Q8H DAYANA Rx#: [id number] metroNIDAZOLE-NS PMX 500 100 mg In Saline 1 100ml.bag @ 100 mls/hr IVPB Q8HR DAYANA Rx#:[id number] Oral 240 Output: Gastric Drainage 1000 Drainage 20 Left Abdomen 10 Lower Abdomen 10 Other: Voiding Method Toilet # Voids 2 - Exam Pleasant 61-year-old male who suffers from obesity is with postoperative pain HEENT: Anicteric conjunctiva are pink and moist nasal mucosa grossly intact without significant lesions, there is no thrush. NG tube is in place and draining appropriately gastric materials which is allowing some improvement of his discomfort Neck: The neck is supple without significant lymphadenopathy or thyromegaly. Lungs: Good bilateral air entry expiratory wheezes are scattered There is no significant bronchial sounds. There is no egophony or dullness. Heart: Regular rate and rhythm with an audible S1-S2, no S3 no S4. There is no significant murmur click or rub, PMI was nondisplaced. Abdomen: Ileostomy in place, stoma is pink and healthy in appearance, and then does have some distention, and has distinct spasms in the lower part quadrant over the bladder, likely is having some urinary retention bladder scan to be performed. No organomegaly is noted. Extremities: The upper extremities have excellent pulses they are symmetric, no significant petechiae or telangiectasia. No splinter hemorrhages were noted. The lower extremities are free from significant edema. The peripheral pulses were 2+ and symmetric. Neuro: Awake alert oriented to person place and time. There are no acute new gross focal sensory motor deficits. - Labs CBC & Chem 7: 07/24/17 06:40 07/24/17 06:40 Labs: Abnormal Lab Results - Last 24 Hours (Table) 07/24/17 07/24/17 Range/Units 06:40 06:40 WBC 24.2 H (3.8-10.6) k/uL Neutrophils # (Manual) 19.60 H (1.3-7.7) k/uL Lymphocytes # (Manual) 0.97 L (1.0-4.8) k/uL Monocytes # (Manual) 2.42 H (0-1.0) k/uL Metamyelocytes # (Man) 0.48 H (0) k/uL Myelocytes # (Manual) 0.97 H (0) k/uL Sodium 148 H (137-145) mmol/L Chloride 112 H (98-107) mmol/L Glucose 104 H (74-99) mg/dL Total Bilirubin 1.9 H (0.2-1.3) mg/dL Total Protein 5.2 L (6.3-8.2) g/dL Albumin 2.5 L (3.5-5.0) g/dL Microbiology - Last 24 Hours (Table) 07/21/17 11:00 Gram Stain - Preliminary [facility] Body Fluid Culture - Preliminary 07/19/17 19:13 Anaerobic Culture - Final Abdomen Laboratory Results WBC 24.2 k/uL (3.8-10.6) H 07/24/17 06:40 RBC 4.71 m/uL (4.30-5.90) 07/24/17 06:40 Hgb 13.9 gm/dL (13.0-17.5) 07/24/17 06:40 Hct 42.0 % (39.0-53.0) 07/24/17 06:40 MCV 89.1 fL (80.0-100.0) 07/24/17 06:40 MCH 29.4 pg (25.0-35.0) 07/24/17 06:40 MCHC 33.0 g/dL (31.0-37.0) 07/24/17 06:40 RDW 14.4 % (11.5-15.5) 07/24/17 06:40 Plt Count 317 k/uL (150-450) 07/24/17 06:40 Neutrophils % Not Reportable 07/23/17 06:43 Neutrophils % (Manual) 78 % 07/24/17 06:40 Band Neutrophils % 3 % 07/24/17 06:40 Lymphocytes % Not Reportable 07/23/17 06:43 Lymphocytes % (Manual) 4 % 07/24/17 06:40 Monocytes % Not Reportable 07/23/17 06:43 Monocytes % (Manual) 10 % 07/24/17 06:40 Eosinophils % Not Reportable 07/23/17 06:43 Eosinophils % (Manual) 3 % 07/23/17 06:43 Basophils % Not Reportable 07/23/17 06:43 Metamyelocytes % 2 % 07/24/17 06:40 Myelocytes % 4 % 07/24/17 06:40 Neutrophils # Not Reportable 07/23/17 06:43 Neutrophils # (Manual) 19.60 k/uL (1.3-7.7) H 07/24/17 06:40 Lymphocytes # Not Reportable 07/23/17 06:43 Lymphocytes # (Manual) 0.97 k/uL (1.0-4.8) L 07/24/17 06:40 Monocytes # Not Reportable 07/23/17 06:43 Monocytes # (Manual) 2.42 k/uL (0-1.0) H 07/24/17 06:40 Eosinophils # Not Reportable 07/23/17 06:43 Eosinophils # (Manual) 0.73 k/uL (0-0.7) H 07/23/17 06:43 Basophils # Not Reportable 07/23/17 06:43 Metamyelocytes # (Man) 0.48 k/uL (0) H 07/24/17 06:40 Myelocytes # (Manual) 0.97 k/uL (0) H 07/24/17 06:40 Nucleated RBCs 0 /100 WBC (0-0) 07/24/17 06:40 Manual Slide Review Performed 07/23/17 06:43 Toxic Granulation Present 07/23/17 06:43 Dohle Bodies Present 07/19/17 06:32 Large Platelets Present 07/19/17 06:32 RBC Morphology Normal 07/24/17 06:40 Hypochromasia Slight 07/23/17 06:43 Poikilocytosis (manual Present 07/23/17 06:43 Sodium 148 mmol/L (137-145) H 07/24/17 06:40 Potassium 4.4 mmol/L (3.5-5.1) 07/24/17 06:40 Chloride 112 mmol/L (98-107) H 07/24/17 06:40 Carbon Dioxide 23 mmol/L (22-30) 07/24/17 06:40 Anion Gap 13 mmol/L 07/24/17 06:40 BUN 15 mg/dL (9-20) 07/24/17 06:40 Creatinine 0.69 mg/dL (0.66-1.25) 07/24/17 06:40 Est GFR (CKD-EPI)AfAm >90 (>60 ml/min/1.73 sqM) 07/24/17 06:40 Est GFR (CKD-EPI)NonAf >90 (>60 ml/min/1.73 sqM) 07/24/17 06:40 Glucose 104 mg/dL (74-99) H 07/24/17 06:40 Calcium 8.7 mg/dL (8.4-10.2) 07/24/17 06:40 Phosphorus 2.8 mg/dL (2.5-4.5) 07/20/17 06:45 Magnesium 2.8 mg/dL (1.6-2.3) H 07/20/17 06:45 Total Bilirubin 1.9 mg/dL (0.2-1.3) H 07/24/17 06:40 AST 55 U/L (17-59) 07/24/17 06:40 ALT 40 U/L (21-72) 07/24/17 06:40 Alkaline Phosphatase 125 U/L (38-126) 07/24/17 06:40 Troponin I <0.012 ng/mL (0.000-0.034) 07/17/17 08:50 Total Protein 5.2 g/dL (6.3-8.2) L 07/24/17 06:40 Albumin 2.5 g/dL (3.5-5.0) L 07/24/17 06:40 Carcinoembryonic Ag 1.0 ng/mL (0.0-4.9) 07/16/17 06:53 Blood Type A Positive 07/10/17 09:43 Blood Type Confirm A Positive 07/15/17 11:50 Blood Type Recheck CABO Indicated 07/10/17 09:43 Antibody Screen NEGATIVE 07/10/17 09:43 Spec Expiration Date 07/17/2017 - 2343 07/10/17 09:43 Microbiology 07/21/17 11:00 Natanael Gram Stain - Preliminary 07/21/17 11:00 Natanael Body Fluid Culture - Preliminary 07/19/17 19:13 Abdomen Anaerobic Culture - Final Assessment and Plan (1) Malignant neoplasm of descending colon Current Visit: Yes Status: Acute Code(s): C18.6 - MALIGNANT NEOPLASM OF DESCENDING COLON SNOMED Code(s): 942468135 (2) S/P colon resection Current Visit: Yes Status: Acute Code(s): Z90.49 - ACQUIRED ABSENCE OF OTHER SPECIFIED PARTS OF DIGESTIVE TRACT SNOMED Code(s): 310817680 (3) Tobacco abuse Current Visit: Yes Status: Acute Code(s): Z72.0 - TOBACCO USE SNOMED Code( s): 728782840 (4) Acute peritonitis Narrative/Plan: 61-year-old male presents to Hospital for the scheduled resection of his colon because of his colon cancer. The patient was a high risk patient because of his history of tobacco smoking before procedure, did have cardiac catheterization and was found evidence of only mild coronary artery disease. The patient has done well postoperatively except he then developed evidence of abdominal distention and pain and was found evidence of feculent peritonitis from the disruption of the end-to-end anastomosis. The patient was converted to an ileostomy. At the time of the procedure surgeon does not relate any significant colitis. The patient is now showing some improvement. He does have leukocytosis related to his peritonitis and recent surgery. He will continue with local maneuvers to improve his discomforts. He is given some techniques for abdominal support for coughing and motion. Antimicrobial therapy currently is with Levaquin and Flagyl which she is responding very well to. Cultures are in process which will further help direct his antibiotics. Potentially he will utilize this is an oral regimen as he transitions to oral antibiotics therapy in the future. His albumin is low and will require significant protein supplementation postoperatively to improve his recovery. 07/22/2017 reveals the patient to have further improvement. He is up and about walking in his room and sitting in the chair without difficulties. His abdominal pain is minimal. He would like to have his diet advanced since he's having no difficulties with the current fluid intake that he is having. He's having no fevers or chills. In general has a marked improvement of his status. Leukocytosis is mildly increased tension be monitored. However with his improving clinical status appears to not be having any acute difficulties. However with his feculent peritonitis will need to have monitoring. Continue antibiotic therapy which may transition to oral appetite therapy once he has adequately gastrointestinal function. If diet is advanced tomorrow and is tolerated then maybe transition to oral antibiotic therapy and discharged. 07/23/2017 reveals the patient to be feeling relatively well. However is without psychotic increased 24.4. Duplex scan without evidence of deep venous thrombosis. Computed tomography scan is abnormal with potential further leak. He's been made nothing by mouth for the surgeon and he is being evaluated for potential drainage. Given the ongoing difficulties at microbial therapy is altered to Zosyn and he will be monitored closely with antibiotic change. 07/24/2017 the patient does feel somewhat poorly. NG is in place. Having ongoing abdominal discomfort especially in the very low illness may be having urinary retention and bladder distention from lack of urination. Bladder scan to be performed. Antibiotic therapy was altered yesterday and will be continued pending any further culture data. He is for percutaneous drainage on Wednesday if he has no acute worsening thickening this has obtained an open surgical procedure. Current Visit: Yes Status: Acute Code(s): K65.0 - GENERALIZED (ACUTE) PERITONITIS SNOMED Code(s): 37337129
[2017-07-25] MEDS ORDERED: KETOROLAC 30 MG/ML 1 ML VIAL IVP SCH
[2017-07-25] MEDS: KETOROLAC 30 MG/ML 1 ML VIAL IVP SCH ×3 (00:50→12:08)
[2017-07-25] MEDS: METOCLOPRAMIDE 5 MG/ML 2 ML VIAL IVP SCH ×2 (00:51→06:11)
[2017-07-25] MEDS: 0.9% NACL WITH KCL 20 MEQ/L 1,000 ML IV SCH (06:08)
[2017-07-25] MEDS: PIPERACILLIN-TAZOBACTAM 3.375 GM in DEXTROSE/WATER 1 50ML.BAG IVPB SCH (06:12)
[2017-07-25 08:09] LABS: HCT 45.8 % (39.0-53.0); HGB 14.9 gm/dL (13.0-17.5); MCH 29.1 pg (25.0-35.0); MCHC 32.7 g/dL (31.0-37.0); MCV 89.1 fL (80.0-100.0); Platelet Count 452 k/uL (150-450); RBC 5.14 m/uL (4.30-5.90); RDW 14.5 % (11.5-15.5)
[2017-07-25 08:11] LABS: ALT 31 U/L (21-72); AST 30 U/L (17-59); Albumin 2.2 g/dL (3.5-5.0); Alkaline Phosphatase 125 U/L (38-126); Anion Gap 9 mmol/L; Blood Urea Nitrogen 26 mg/dL (9-20); Carbon Dioxide 24 mmol/L (22-30); Chloride 113 mmol/L (98-107); Glucose 184 mg/dL (74-99); Potassium 4.3 mmol/L (3.5-5.1); Sodium 146 mmol/L (137-145); Total Bilirubin 1.9 mg/dL (0.2-1.3); Total Protein 4.9 g/dL (6.3-8.2)
[2017-07-25 08:14] LABS: INR 1.3 (<1.2)
[2017-07-25] MEDS: METOPROLOL TARTRATE 50 MG TAB PO SCH (08:21)
[2017-07-25] MEDS: HEPARIN SODIUM,PORCINE 5,000 UNIT/ML 1 ML VIAL SQ SCH (08:21)
[2017-07-25] MEDS: PANTOPRAZOLE 40 MG TABLET PO SCH (08:22)
[2017-07-25] MEDS: TAMSULOSIN 0.4 MG CAP.ER.24H PO SCH (08:22)
[2017-07-25 08:43] LABS: Band Neutrophils % 4 %; Lymphocytes # (M) 1.64 k/uL (1.0-4.8); Metamyelocytes # (M) 0.41 k/uL (0); Metamyelocytes % 1 %; Monocytes # (M) 1.64 k/uL (0-1.0); Myelocytes # (M) 0.41 k/uL (0); Myelocytes % 1 %; Neutrophils % (M) 88 %; Nucleated Red Blood Cells 0 /100 WBC (0-0); Total Cells Counted 200
[2017-07-25 09:44] VITALS: BP 142/89; PULSE 107; RESP 18; TEMP 97.4
--- NOTE | 2017-07-25 09:57 | P.DS ---
Providers Date of admission: 07/15/17 10:27 Expected date of discharge: 07/25/17 Attending physician: Charissa Krause Consults: 07/20/17 08:18 Consult Physician Routine Consulting Provider: Quentin Graham Consult Reason/Comments: Fecal peritonitis Do you want consulting provider notified?: Yes 07/24/17 19:15 Consult Physician Routine Consulting Provider: Yunier Parekh Consult Reason/Comments: Prostatis Do you want consulting provider notified?: Yes Primary care physician: David Murphy - Discharge Diagnosis(es) (1) Acute peritonitis Please refer to hospital chart for full details. The patient underwent a laparoscopic robotic-assisted left colectomy for malignancy. Postoperatively the patient developed a anastomotic leak. The patient was taken back to the operating room. The leak site was closed and a loop ileostomy was brought out. Drains were placed. Postoperatively the patient has had a slow recovery with most recently a climbing white blood cell count. CAT scan from 07/23 showed some residual air pockets in the peritoneal cavity more densely located in the left hemiabdomen. The patient's family has requested initiation of transfer. They spoke with the surgeon that performed both operations at length yesterday. He does feel better today however his white blood cell count was noted to be increased further. The primary surgeon requested the patient be transferred per the family's request at this time. During this hospital stay the patient is been seen by medicine and infectious disease. A consult was placed yesterday to urology for urinary retention. The patient remains on broad- spectrum antibiotics. He has a nasogastric tube in place. He is having ileostomy function. We'll plan transfer by ground today. Current Visit: Yes Status: Acute Plan - Discharge Summary Discharge Rx Participant: Yes New Discharge Prescriptions: New Metoprolol Tartrate [Lopressor] 50 mg PO BID #30 tab metroNIDAZOLE [Flagyl] 500 mg PO TID #30 tab Ibuprofen [Motrin] 600 mg PO Q8HR PRN #30 tab PRN Reason: Pain HYDROcodone/APAP 7.5-325MG [Davidson 7.5-325] 1 each PO Q4H PRN #30 tab PRN Reason: Pain Levofloxacin [Levaquin] 500 mg PO DAILY #7 tab Discontinued Acetaminophen [Tylenol] 1,000 - 1,500 mg PO QAM PRN PRN Reason: BACK PAIN [facility] 1 tab PO DAILY Polyethylene Glycol 3350 [Miralax] 17 gm PO HS PRN PRN Reason: Constipation Discharge Medication List HYDROcodone/APAP 7.5-325MG [Davidson 7.5-325] 1 each PO Q4H PRN #30 tab 07/17/17 [ Rx] Ibuprofen [Motrin] 600 mg PO Q8HR PRN #30 tab 07/17/17 [Rx] Metoprolol Tartrate [Lopressor] 50 mg PO BID #30 tab 07/17/17 [Rx] metroNIDAZOLE [Flagyl] 500 mg PO TID #30 tab 07/17/17 [Rx] Levofloxacin [Levaquin] 500 mg PO DAILY #7 tab 07/19/17 [Rx] Follow up Appointment(s)/Referral(s): Charissa Krause MD [STAFF PHYSICIAN] - 08/03/17 () [facility], [NON-STAFF] - Patient Instructions/Handouts: How to Stop Smoking (DC), Ileostomy Care (GEN), Bakari-Ocampo Drain Care (DC), Abdominal Binder (GEN) Activity/Diet/Wound Care/Special Instructions: Ileostomy Care Instructions : Last Appliance change: Pateint to change the ileosotmy pouching system every 3-5 days Mr Cohen to enmpty the pouch when 1/2 to 1/3 full in the bathroom Ileosotmy supplies for home use: Convatec Pouch # (three from the hospital) Ostomy Powder Skin prep pads (10) Home Health Please have Mr Cohen setup for DME ileostomy supplies priro to discharging from services. No lifting over 4 pounds in 4 weeks. No tobacco use. Measure ESTELA outputs. No bath tub soaks. No showering. Discharge Disposition: OTHER INSTITUTION NOT DEFINED
--- NOTE | 2017-07-25 11:02 | P.OP ---
Date of Procedure: 07/19/17 Description of Procedure: Date of Procedure: 07/19/17 Preoperative Diagnosis: 1. Ascending colon cancer, T3 2. Generalized abdominal pain and peritonitis 3. Morbid obesity due to excess calories 4. Body mass index 35.3 5. History of tobacco abuse 6. History of chronic constipation 7. Diverticulosis 8. Family history of colon cancer Postoperative Diagnosis: 1. Ascending colon cancer, T3 2. Generalized abdominal pain and peritonitis 3. Morbid obesity due to excess calories 4. Body mass index 35.3 5. History of tobacco abuse 6. History of chronic constipation 7. Diverticulosis 8. Family history of colon cancer 9. Fecal peritonitis 10. Dehydration 11. Pneumoperitoneum 12. Colitis of the ascending including transverse and remnant sigmoid colon Procedure(s) Performed: 1. Exploratory laparotomy with abdominal washout 9 L normal saline 2. Resection of colo-colo anastomosis 3. Loop Ileostomy creation right lower quadran 4. Placement of second round #19 ESTELA drain upper abdomen under liver 5. Intraoperaive EGD Anesthesia: MARLENE Surgeon: Charissa Krause Estimated Blood Loss (ml): 100 Pathology: other (anaerobic and aerobic culture of peritoneal fluid) Condition: stable Disposition: floor Operative Findings: 1. Diffuse fecal peritonitis involving the upper abdomen 2. Colitis of the ascending, transverse colon and remnant sigmoid colon 3. Upper endoscopy performed for history of epigastric abdominal pain including pneumoperitoneum demonstrating no gastric or duodenal perforation 4. Anastomosis resected 5. Ileostomy creation performed to avoid diffuse colitis as identified 6. New ESTELA placed upper abdomen 7. Prior ESTELA placed lateral to anastomotic site extending into the pelvis INDICATIONS: The patient is a 61-year-old male who recently undergone robotic- assisted left colectomy 5 days ago. Initially for the first 24-48 hours, he was doing well then he developed acute onset epigastric abdominal pain. He had history of gallstones from previous studies. He had CT of the abdomen and pelvis demonstrating persistent air from his prior surgery. He had adjustments of his antibiotics were his white blood cell count was normal today however his ESTELA of the pelvis demonstrated tristen stool. As a result, patient was advised surgical intervention. Benefits and risks of the procedure including bleeding, infection, need for additional surgery including placement of an ostomy were described in detail. Informed consent was obtained. DESCRIPTION: The patient was brought to the operating room. After general induction, the abdomen was prepped and draped in standard sterile fashion. An Ioban draping was placed. A Valente catheter was placed demonstrating extremely dark urine. Prior to incision, a timeout protocol was confirmed with surgical team regarding patient's name including procedures to be performed. Preoperative medications were confirmed. The patient was on scheduled IV antibiotics including a beta kelsey. Inspection on the abdomen demonstrated granulated laparoscopic sites including no cellulitis or infection of his extraction site of the right upper quadrant transverse incision. The abdomen was entered along the midline where incision was made using a #10 blade extending from the epigastrium to the pubis. Carefully the abdomen was entered in layers from the subcutaneous tissue into the peritoneum. Immediately bilious content was found without odor where aerobic and anerobic cultures were obtained. The omentum was thick and densely adhered to the abdominal wall which was dissected free using gentle digital dissection. A universal abdominal retractor was used to increased visualization. He had moderate intra-abdominal fat and severely thickened greater omentum. His omentum was tethered along the bilateral abdominal wall and LigaSure was used to free the tethered omentum of the lateral abdominal wall to allow visualization of the small bowel. Small bowel was unremarkable and without gross pathology. The transverse mesocolon was elevated to identify the ligament of Treitz. Moderate hyperemia was identified of the transverse colon consistent with radiological findings of colitis. A systematic review of each quadrant was performed starting from the epigastrium at his initial site of pain. The liver serosa was unremarkable. The falciform ligament was found and the undersurface of the liver was elevated demonstrating bilious content non- malodorous. The anterior surface of the stomach was also palpated and questionable defect was found along the anterior portion of the pylorus. With his history of epigastric abdominal pain including and finding along the pylorus , an intraoperative esophagogastroduodenoscopy was proposed. I went to the head of the bed and changed gloves. An Olympus gastroscope was passed along the posterior oropharynx down to the distal esophagus where no bleeding or gastritis was identified. The scope was passed to the third portion of duodenum which was unremarkable. Bile was found within the duodenum. No peptic ulcers or duodenal ulcers were encountered. Retroflexion of scope confirmed a Hill grade 2 lower esophageal valve. No findings of a hiatal hernia was found. This concluded the endoscopy portion of the case. I then re-scrubbed into the case. A gastric tube was positioned along the antrum of the stomach. Inspection of the abdomen along the right upper quadrant was continued. Over the anterior surface of the liver, bilious content was also identified and suctioned. Similarly the undersurface of the liver was suctioned as well. The hepatic flexure and right upper quadrant was otherwise unremarkable and suctioned of additional bilious content. Along the right lower quadrant at the paracolic gutter, minimal bilious content was identified. The appendix and cecum was adherent to the right lateral abdominal wall. Along the pelvis the ESTELA drain was found. Within the pelvis, additional bilious content was suctioned clear. To get to the left lower quadrant, the omentum was again densely adherent to the lower abdominal wall. With digital dissection, the omentum was dissected free and the anastomosis was adherent to the left lateral abdominal wall. Grossly, the anastomosis was still intact. Separately, minimal bile was found along or around anastomosis. Using CovLaunchCyteen tri-stapler 60-mm black including purple loads, the anastomosis was resected. The resected anastomosis was inspected demonstrating a 3 mm defect along the staple line consistent with anastomotic leak. The distal colon remnant of the sigmoid colon was tagged using 2-0 Prolene. The sigmoid colon was without gross inflammation. The remnant proximal resected colon had inflammation also consistent with colitis also found along the computed tomography scan. The rest of the left upper quadrant was inspected. The previous splenic flexure had been taken down from the index operation. The left upper quadrant demonstrated minimal bilious content. The remnant proximal colon was tagged using 2-0 silk. The small bowel was inspected from proximal to distal, starting from ligaments of Treitz to exclude any interloop abscesses or points of potential bowel obstruction. Moderate fibrinous exudate was found along the serosa of the jejunum proximally including distally. Portion of the mid-distal ileum was adhered to the pelvis and carefully freed using digital palpation. He had moderate air within the small bowel from his previous upper endoscopy for which his orogastric tube was exchanged for nasogastric tube and positioned along the distal stomach. The abdomen was irrigated with 9 L of warm normal saline solution until the aspirant was clear. His previous round #19 drain was placed along the deep pelvis as a result of moderate irrigation used in his abdomen. A new round #19 drain was placed lateral to the anastomosis and positioned into the upper abdomen between the liver and the stomach where moderate bile was initially identified. An ostomy was proposed. With his finding of colitis involving the ascending, transverse colon and proximal resected segment which was densely adherent to the left lateral abdominal wall, an ileostomy was proposed away from his previous site of cancer. The ileocecal valve was identified and 20 cm proximally the ileum was brought to the abdominal wall along the least amount of tension. With this body habitus a tension-free ileostomy was sought. A quarter size skin incision was made using Bovie cautery and deep into subcutaneous tissue. A core subcutaneous tissue was removed. The fascia of the abdominal wall was incised. A loop ileostomy was brought through the abdominal wall using a glenys. Distal end was tagged using 2-0 silk. All drains were tacked to the skin using 2-0 nylon with both suction upon the completion of the case. The abdomen was closed with double-stranded 0 PDS. The subcutaneous tissue and skin was cleansed using normal saline. The incision around the umbilicus was reapproximated using 3-0 Vicryl in an interrupted subcuticular fashion including the rest of the midline incision. The rest of the incision was reapproximated using stainless skin adelina. Optifoam dressing was placed along the midline and at the ESTELA sites. A loop ileostomy was created after placing a spacer. The medial end corresponded to the distal end of the ileostomy. The loop ileostomy was matured using 3-0 Vicryl using skin to serosa to mucosal bites in all quadrants. An ostomy appliance was placed. Abdominal binder was placed. At the end of the procedure, needle, sponge, and instrument count had been verified correct by the surgical resident. The patients initial tachycardia moderately improved. The patient was taken the postanesthesia care in stable condition. Intraoperative findings were described to the patient's family. Upon awaking, the patient immediately reported improvement of his abdominal pain.
--- NOTE | 2017-07-25 11:35 | P.PN ---
Subjective Progress Note Date: 07/25/17 Principal diagnosis: Peritonitis 61-year-old male who has a history of obesity underwent a colonoscopy and was without evidence of a adenocarcinoma of his colon and consequently is admitted for elective resection of the ascending colon tumor. The patient had a preoperative metastatic workup that was negative and had adequate cardiac risk and constantly was taken to the operating room for the resection of the colon lesion with a primary anastomosis. Postoperatively the patient was not feeling well he had further interventions and imaging studies. With clinical evidence of peritonitis he was taken back to the operating room and there was evidence of the anastomotic leak. Because of this ileostomy was placed and the patient had high-volume lavage of the abdominal cavity. Concern was the feculent peritonitis the infectious diseases consultation was requested. This pleasant gentleman other than complaining of abdominal pain is doing relatively well. With minimal assistance he was able to go from a sitting position back into bed. He is denying high-grade fevers chills or rigors or sweats. He believes he feels better today than yesterday. He denies nausea and has had no emesis. No flatus. He is denying any other new acute difficulties. 07/22/2017 reveals the patient be considerably improved. He is upright walking sitting in the chair and utilizing his incentive spirometer without difficulties. He has been ingesting fluids with no difficulties at all. Is anxious to have an advancement of his diet. He is not having much abdominal pain. Has adequate output through the ileostomy. 07/23/2017 the patient's leukocytosis has further increased to 24.4. The case is discussed with the surgeon. Duplex scans performed because he had some lower extremity edema with no evidence of any deep venous thrombosis. As discussed she's now gone for a computed tomography scan that is showing evidence of some potential worsening at the anastomotic site. Patient fortunately does not feel very poorly. 07/24/2017 patient's leukocytosis persists. As noted the computed tomography scan does show evidence of further fluid collection within the abdominal cavity. He will have a percutaneous guided drainage on Wednesday if he has further improvement. If he declines he may require further surgical intervention. July 25 2017 reveals the patient with worsening leukocytosis. His significant abdominal pain yesterday is improved with transition to Toradol. Still does not feel well, NG tube is in place. His significant abdominal discomforts also did improve with placement of Valente catheter resolution of his urinary retention. The case is discussed with the general surgeon. Objective - Vital Signs Vital signs: Vital Signs Temp 97.4 F L 07/25/17 07:00 Pulse 107 H 07/25/17 07:00 Resp 18 07/25/17 07:00 BP 142/89 07/25/17 07:00 Pulse Ox 96 07/25/17 07:00 Intake & Output 07/24/17 07/25/17 07/25/17 18:59 06:59 18:59 Intake Total 800 4179 Output Total 1000 2170 Balance -200 2008 Weight 108.862 kg Intake: Intake, IV Titration 800 3699 Amount 0.9% NaCl with KCl 20 Meq 800 1500 /l 1,000 ml @ 100 mls/hr IV .Q10H [facility] Rx#: [id number] Piperacillin-Tazobactam 3 200 .375 gm In Dextrose/Water 1 50ml.bag @ 12.5 mls/hr IVPB Q8H [facility] Rx#: [id number] Sodium Chloride 0.9% 1, 1999 000 ml @ 999 mls/hr IV . Q1H1M [facility] Rx#:[id number] Oral 480 Output: Gastric Drainage 1000 300 Drainage 470 Ileostomy 400 Left Abdomen 30 Lower Abdomen 40 Urine 1200 Stool 200 Other: Voiding Method Indwelling Catheter Indwelling Catheter - Exam Pleasant 61-year-old male who suffers from obesity is with postoperative pain HEENT: Anicteric conjunctiva are pink and moist nasal mucosa grossly intact without significant lesions, there is no thrush. NG tube is in place and draining appropriately gastric materials which is allowing some improvement of his discomfort Neck: The neck is supple without significant lymphadenopathy or thyromegaly. Lungs: Good bilateral air entry expiratory wheezes are scattered There is no significant bronchial sounds. There is no egophony or dullness. Heart: Regular rate and rhythm with an audible S1-S2, no S3 no S4. There is no significant murmur click or rub, PMI was nondisplaced. Abdomen: Ileostomy in place, stoma is pink and healthy in appearance, abdominal distention has improved, the significant spasm and discomfort over the suprapubic region has resolved with the Valente catheter placement No organomegaly is noted. Extremities: The upper extremities have excellent pulses they are symmetric, no significant petechiae or telangiectasia. No splinter hemorrhages were noted. The lower extremities are free from significant edema. The peripheral pulses were 2+ and symmetric. Neuro: Awake alert oriented to person place and time. There are no acute new gross focal sensory motor deficits. - Labs CBC & Chem 7: 07/25/17 07:45 07/25/17 07:45 Labs: Abnormal Lab Results - Last 24 Hours (Table) 07/24/17 07/25/17 07/25/17 Range/Units 06:40 07:45 07:45 WBC 41.0 H* (3.8-10.6) k/uL Plt Count 452 H (150-450) k/uL Neutrophils # (Manual) 19.60 H 37.70 H (1.3-7.7) k/uL Lymphocytes # (Manual) 0.97 L (1.0-4.8) k/uL Monocytes # (Manual) 2.42 H 1.64 H (0-1.0) k/uL Metamyelocytes # (Man) 0.48 H 0.41 H (0) k/uL Myelocytes # (Manual) 0.97 H 0.41 H (0) k/uL INR (<1.2) Sodium 146 H (137-145) mmol/L Chloride 113 H (98-107) mmol/L BUN 26 H (9-20) mg/dL Glucose 184 H (74-99) mg/dL Calcium 8.0 L (8.4-10.2) mg/dL Total Bilirubin 1.9 H (0.2-1.3) mg/dL Total Protein 4.9 L (6.3-8.2) g/dL Albumin 2.2 L (3.5-5.0) g/dL 07/25/17 Range/Units 07:45 WBC (3.8-10.6) k/uL Plt Count (150-450) k/uL Neutrophils # (Manual) (1.3-7.7) k/uL Lymphocytes # (Manual) (1.0-4.8) k/uL Monocytes # (Manual) (0-1.0) k/uL Metamyelocytes # (Man) (0) k/uL Myelocytes # (Manual) (0) k/uL INR 1.3 H (<1.2) Sodium (137-145) mmol/L Chloride (98-107) mmol/L BUN (9-20) mg/dL Glucose (74-99) mg/dL Calcium (8.4-10.2) mg/dL Total Bilirubin (0.2-1.3) mg/dL Total Protein (6.3-8.2) g/dL Albumin (3.5-5.0) g/dL Microbiology - Last 24 Hours (Table) 07/21/17 11:00 Gram Stain - Preliminary [facility] Body Fluid Culture - Preliminary Laboratory Results WBC 41.0 k/uL (3.8-10.6) H* 07/25/17 07:45 RBC 5.14 m/uL (4.30-5.90) 07/25/17 07:45 Hgb 14.9 gm/dL (13.0-17.5) 07/25/17 07:45 Hct 45.8 % (39.0-53.0) 07/25/17 07:45 MCV 89.1 fL (80.0-100.0) 07/25/17 07:45 MCH 29.1 pg (25.0-35.0) 07/25/17 07:45 MCHC 32.7 g/dL (31.0-37.0) 07/25/17 07:45 RDW 14.5 % (11.5-15.5) 07/25/17 07:45 Plt Count 452 k/uL (150-450) H 07/25/17 07:45 Neutrophils % Not Reportable 07/23/17 06:43 Neutrophils % (Manual) 88 % 07/25/17 07:45 Band Neutrophils % 4 % 07/25/17 07:45 Lymphocytes % Not Reportable 07/23/17 06:43 Lymphocytes % (Manual) 4 % 07/25/17 07:45 Monocytes % Not Reportable 07/23/17 06:43 Monocytes % (Manual) 4 % 07/25/17 07:45 Eosinophils % Not Reportable 07/23/17 06:43 Eosinophils % (Manual) 3 % 07/23/17 06:43 Basophils % Not Reportable 07/23/17 06:43 Metamyelocytes % 1 % 07/25/17 07:45 Myelocytes % 1 % 07/25/17 07:45 Neutrophils # Not Reportable 07/23/17 06:43 Neutrophils # (Manual) 37.70 k/uL (1.3-7.7) H 07/25/17 07:45 Lymphocytes # Not Reportable 07/23/17 06:43 Lymphocytes # (Manual) 1.64 k/uL (1.0-4.8) 07/25/17 07:45 Monocytes # Not Reportable 07/23/17 06:43 Monocytes # (Manual) 1.64 k/uL (0-1.0) H 07/25/17 07:45 Eosinophils # Not Reportable 07/23/17 06:43 Eosinophils # (Manual) 0.73 k/uL (0-0.7) H 07/23/17 06:43 Basophils # Not Reportable 07/23/17 06:43 Metamyelocytes # (Man) 0.41 k/uL (0) H 07/25/17 07:45 Myelocytes # (Manual) 0.41 k/uL (0) H 07/25/17 07:45 Nucleated RBCs 0 /100 WBC (0-0) 07/25/17 07:45 Manual Slide Review Performed 07/23/17 06:43 Toxic Granulation Present 07/23/17 06:43 Dohle Bodies Present 07/19/17 06:32 Large Platelets Present 07/19/17 06:32 RBC Morphology Normal 07/25/17 07:45 Hypochromasia Slight 07/23/17 06:43 Poikilocytosis (manual Present 07/23/17 06:43 PT 12.0 sec (9.0-12.0) 07/25/17 07:45 INR 1.3 (<1.2) H 07/25/17 07:45 Sodium 146 mmol/L (137-145) H 07/25/17 07:45 Potassium 4.3 mmol/L (3.5-5.1) 07/25/17 07:45 Chloride 113 mmol/L (98-107) H 07/25/17 07:45 Carbon Dioxide 24 mmol/L (22-30) 07/25/17 07:45 Anion Gap 9 mmol/L 07/25/17 07:45 BUN 26 mg/dL (9-20) H 07/25/17 07:45 Creatinine 0.90 mg/dL (0.66-1.25) 07/25/17 07:45 Est GFR (CKD-EPI)AfAm >90 (>60 ml/min/1.73 sqM) 07/25/17 07:45 Est GFR (CKD-EPI)NonAf >90 (>60 ml/min/1.73 sqM) 07/25/17 07:45 Glucose 184 mg/dL (74-99) H 07/25/17 07:45 Calcium 8.0 mg/dL (8.4-10.2) L 07/25/17 07:45 Phosphorus 2.8 mg/dL (2.5-4.5) 07/20/17 06:45 Magnesium 2.8 mg/dL (1.6-2.3) H 07/20/17 06:45 Total Bilirubin 1.9 mg/dL (0.2-1.3) H 07/25/17 07:45 AST 30 U/L (17-59) 07/25/17 07:45 ALT 31 U/L (21-72) 07/25/17 07:45 Alkaline Phosphatase 125 U/L (38-126) 07/25/17 07:45 Troponin I <0.012 ng/mL (0.000-0.034) 07/17/17 08:50 Total Protein 4.9 g/dL (6.3-8.2) L 07/25/17 07:45 Albumin 2.2 g/dL (3.5-5.0) L 07/25/17 07:45 Carcinoembryonic Ag 1.0 ng/mL (0.0-4.9) 07/16/17 06:53 Blood Type A Positive 07/10/17 09:43 Blood Type Confirm A Positive 07/15/17 11:50 Blood Type Recheck CABO Indicated 07/10/17 09:43 Antibody Screen NEGATIVE 07/10/17 09:43 Spec Expiration Date 07/17/2017 - 4983 07/10/17 09:43 Microbiology 07/21/17 11:00 Bakari-Ocampo Gram Stain - Preliminary 07/21/17 11:00 Bakari-Ocampo Body Fluid Culture - Preliminary 07/19/17 19:13 Abdomen Anaerobic Culture - Final 07/21/17 11:40 Bakari-Ocampo Gram Stain - Preliminary 07/21/17 11:40 Bakari-Ocampo Body Fluid Culture - Preliminary Coagulase Negative Staph 07/19/17 19:13 Abdomen Gram Stain - Final 07/19/17 19:13 Abdomen Wound Culture - Final Assessment and Plan (1) Malignant neoplasm of descending colon Current Visit: Yes Status: Acute Code(s): C18.6 - MALIGNANT NEOPLASM OF DESCENDING COLON SNOMED Code(s): 149949730 (2) S/P colon resection Current Visit: Yes Status: Acute Code(s): Z90.49 - ACQUIRED ABSENCE OF OTHER SPECIFIED PARTS OF DIGESTIVE TRACT SNOMED Code(s): 809330844 (3) Tobacco abuse Current Visit: Yes Status: Acute Code(s): Z72.0 - TOBACCO USE SNOMED Code( s): 263787341 (4) Acute peritonitis Narrative/Plan: 61-year-old male presents to Hospital for the scheduled resection of his colon because of his colon cancer. The patient was a high risk patient because of his history of tobacco smoking before procedure, did have cardiac catheterization and was found evidence of only mild coronary artery disease. The patient has done well postoperatively except he then developed evidence of abdominal distention and pain and was found evidence of feculent peritonitis from the disruption of the end-to-end anastomosis. The patient was converted to an ileostomy. At the time of the procedure surgeon does not relate any significant colitis. The patient is now showing some improvement. He does have leukocytosis related to his peritonitis and recent surgery. He will continue with local maneuvers to improve his discomforts. He is given some techniques for abdominal support for coughing and motion. Antimicrobial therapy currently is with Levaquin and Flagyl which she is responding very well to. Cultures are in process which will further help direct his antibiotics. Potentially he will utilize this is an oral regimen as he transitions to oral antibiotics therapy in the future. His albumin is low and will require significant protein supplementation postoperatively to improve his recovery. 07/22/2017 reveals the patient to have further improvement. He is up and about walking in his room and sitting in the chair without difficulties. His abdominal pain is minimal. He would like to have his diet advanced since he's having no difficulties with the current fluid intake that he is having. He's having no fevers or chills. In general has a marked improvement of his status. Leukocytosis is mildly increased tension be monitored. However with his improving clinical status appears to not be having any acute difficulties. However with his feculent peritonitis will need to have monitoring. Continue antibiotic therapy which may transition to oral appetite therapy once he has adequately gastrointestinal function. If diet is advanced tomorrow and is tolerated then maybe transition to oral antibiotic therapy and discharged. 07/23/2017 reveals the patient to be feeling relatively well. However is without psychotic increased 24.4. Duplex scan without evidence of deep venous thrombosis. Computed tomography scan is abnormal with potential further leak. He's been made nothing by mouth for the surgeon and he is being evaluated for potential drainage. Given the ongoing difficulties at microbial therapy is altered to Zosyn and he will be monitored closely with antibiotic change. 07/24/2017 the patient does feel somewhat poorly. NG is in place. Having ongoing abdominal discomfort especially in the very low illness may be having urinary retention and bladder distention from lack of urination. Bladder scan to be performed. Antibiotic therapy was altered yesterday and will be continued pending any further culture data. He is for percutaneous drainage on Wednesday if he has no acute worsening thickening this has obtained an open surgical procedure. 07/25/2017 reveals the patient be feeling slightly better because his pain is better controlled and is no longer having significant discomfort from his distended bladder. The patient however has worsening leukocytosis. It is noted on the computed tomography scan of yesterday likely has ongoing leak from the anastomotic site. Apparently the patient will be transferred to a tertiary care center for further evaluation and has been discussed with the surgical team. Antibiotic therapy was altered to Zosyn, patient is without fever and clinically is slightly improved today. No need for further antibiotic change at this point in time however we'll add micafungin given the worsening leukocytosis. Current Visit: Yes Status: Acute Code(s): K65.0 - GENERALIZED (ACUTE) PERITONITIS SNOMED Code(s): 31856510
--- NOTE | 2017-07-25 12:04 | P.OP ---
Date of Procedure: 07/15/17 Description of Procedure: Date of Procedure: 07/15/17 SURGEON: MAGO MORALES MD YARN BLEACHING MACHINE OPERATOR: 1. CAIO SÁNCHEZ 2. PEPPER PARRY 3. [place] Preoperative Diagnosis: 1. Splenic flexure colon cancer 2. History of tobacco abuse 3. Morbid obesity, BMI 35.4 4. Family history of colon cancer 5. History of incomplete colonoscopy Postoperative Diagnosis: 1. Splenic flexure colon cancer 2. History of tobacco abuse 3. Morbid obesity, BMI 35.4 4. Family history of colon cancer 5. History of incomplete colonoscopy 6. Sigmoid diverticulosis 7. Chronic constipation with incomplete bowel prep Procedure(s) Performed: 1. Robotic-assisted da Keeley Xi left colectomy 2. Robotic-assisted da Keeley Xi mobilization of splenic flexure 3. Intraoperative flexible sigmoidoscopy using Olympus colonoscope Anesthesia: GETA, local Surgeon: Mago Morales Estimated Blood Loss (ml): 150 Pathology: other (Descending colon) Condition: stable Disposition: floor Operative Findings: 1. Fixed tumor involving the proximal descending colon highly suspicious for stage III disease. 2. No peritoneal metastases with liver unremarkable. 3. Poor colon prep causing contaminated case 4. Initial leak test performed with reinforcement of linear anastomosis at 3: 00 with omental patch buttressing of 3-0 silk 5. Isoperistaltic end-end anastomosis with over 30 mm lumen 6. Finally leak test confirmed intact anastomosis with easy insufflation of the descending colon 7. 5 mm port along the left upper quadrant 8. All robotic ports positioned from right upper quadrant to left lower quadrant with stapler placed along the right upper quadrant 9. Because contamination from stool, Bakari-Ocampo drain placed into the pelvis 10. Intraoperative findings described to the patient's family including fixed tumor to the peritoneum highly suspicious for stage III disease INDICATIONS: The patient is a 61-year-old male who had a colonoscopy by a different provider with finding of a splenic flexure tumor. A metastatic workup was performed including CEA levels which were normal. Computed tomography scan was negative for metastatic disease. He had an incomplete colonoscopy for which a barium enema was performed demonstrating tumor of the splenic flexure. He had completed cardiac risk assessment as well. Surgical intervention was advised to the patient who had elected for emergent surgical intervention. Benefits and risks, including infection, bowel injury, ureteral injury, colostomy creation and possibility for additional surgery was discussed at length. Informed consent was obtained. All questions of the patient and family were answered. DESCRIPTION: The patient had undergone a bowel prep using the enhanced colon recovery program. The patient tolerated general anesthesia. The patient was brought to the operating room and placed in supine position. A Valente catheter was placed. The abdomen was then prepped and draped in standard sterile fashion as Ioban was placed along the abdomen to minimize any contamination of skin floor. After a timeout protocol was performed, attention was then brought to the left upper quadrant whereby a 0 degree 5 mm laparoscopic trocar entry was performed. The abdominal cavity was entered and insufflated to 15 mmHg pressure, which he tolerated well. Diagnostic laparoscopy confirmed liver surface being unremarkable. Next a robotic 8-mm trocar was placed along the right upper quadrant. A 12 mm port was placed along the epigastrium for the robotic stapler. Ports were placed 10 to 13 cm apart from each other including 15-20 cm away from the target anatomy of the splenic flexure. An 8-mm port was port was placed just above the umbilicus. At the left lower quadrant, an 8 mm port was placed. The patient was then placed in reverse Trendelenburg position, at least 14. The robotic da Keeley XI system was primed. The robot was docked from the left side of the patient. Using atraumatic graspers and vessel sealer, the robotic system was docked and primed as described. Instruments were interchanged by the internal medicine physician assistant including scissors, needle recycle driver , robotic stapler and vessel sealer. The robot stapler was prepared along the right upper abdomen. Next, attention was brought to identify the tumor. Barium enema images were reviewed intraoperatively also in conjunction with diagnostic laparoscopy. Carefully, the serosa of the left colon was inspected to identify the Zeynep ink used during the previous colonoscopy. The tumor was proposed to be at the splenic flexure however diagnostic laparoscopy confirmed the tumor along the proximal descending colon. The colon was mobilized along the white line of Toldt starting from the sigmoid colon proximally. The tumor was found tethered to the left lateral abdominal wall almost through the pericolonic fat. Next, a point between the omentum between the stomach and colon was selected and incised using vessel sealer. The splenic flexure was carefully taken down and mobi The splenic flexure was mobilized towards the midline upon complete dissection. Next, given the severe adhesion from the tumor, careful extensive dissection was performed in mobilizing the rest of the colon off the abdomen and Gerota's fascia. Extensive lysis of adhesions occurred over 2.5 hrs. From the area of Zeynep ink, 5 cm distally from point of resection was selected including 5 to 8 cm proximally. A window was created along the colonic mesentery for the distal resection. Robotic 45 mm blue stapler loads was fired for complete linear resection. Next, proximal resection was performed similarly using 45 mm blue/green loads. The specimen was freed from the surrounding tissues. Next hemostasis was checked. The proximal colon and distal ends were mobilized for a isoperistaltic anastomosis. The proximal and distal ends were brought together with stay sutures using 2-0 silks were placed for a linear isoperistaltic end-end anastomosis. Colotomy was placed at the proposed anastomosis. Liquid stool was found along the colotomies with mild contamination. A 45 mm blue staple load was fired. The colotomy was closed using 3-0 Vicryl with interrupted sutures. I went to the foot of the bed to perform a flexible sigmoidoscopy using an Olympus colonoscope. The patient was frogged legged with the left leg up. An Olympus colonoscope was advanced beyond 50 cm past the anastomosis which was widely patent. Within the abdomen, the internal medicine physician assistant placed normal saline. Initially a small amount of bubbles were found along the lateral anastomosis. The colon was mildly desufflated. I went back to the console where interrupted 3-0 silks and omental patch with Lembert sutures were placed at the lateral anastomosis. I went back to the foot of the bed where a repeat leak test was negative. Endoscopic imaging was obtained. The robot was undocked. All needles were removed from the abdominal cavity. Via the stapler site at the right upper quadrant, the resected colon was brought out through the 12 mm trocar after widening the skin incision to 4-cm. The fascial defect was oversewn using 0 Vicryl of the right upper quadrant. A round #19 ESTELA drain was placed within the pelvis and exited via the left lower quadrant trocar incision. A drain stitch of 2-0 nylon was placed. All incisions were copiously irrigated using dilute normal saline and hydrogen peroxide mixture. Next all pneumoperitoneum was evacuated from the abdominal cavity. The 8-mm trocar sites were reapproximated using 4-0 Monocryl in an interrupted subcuticular fashion. Suture 3-0 Vicryl was used to reapproximate the subcutaneous tissue followed by 4-0 Monocryl in an interrupted subcuticular fashion of the right upper quadrant. Local anesthetic was infiltrated to all wounds for postop analgesia. All incisions were also cleansed with diluted hydrogen peroxide. An Optifoam surgical dressing was placed over the colon extraction site. Dermabond was applied to the rest of the skin incisions. The patient was extubated successfully. Intraoperative photos were reviewed with the patient's family including intraoperative findings of a poor bowel prep and fixed tumor highly suspicious for T3 tumor with possible need for chemotherapy. The family is aware that with these findings, he is at risk for need for further surgery.
[2017-07-25] MEDS: ACETAMINOPHEN TAB 500 MG TAB PO PRN (12:36)
[2017-07-25] MEDS ORDERED: MICAFUNGIN 100 MG in SODIUM CHLORIDE 0.9% 100 ML IVPB SCH (13:00)
[2017-07-25 16:23] LABS: Iron Saturation 3.76 (15.00-50.00)
== END 2017-07-25 12:54 | disposition other institution (70) | DRG 329 ==
LOC: 2ORMAIN 10:27 → 3SUR 22:24
PROVIDERS: ADMIT Surgery Plastic and Reconstructive Surgery; ATTEND Surgery Plastic and Reconstructive Surgery
PROC: 0DNG4ZZ Release Left Large Intestine, Percutaneous Endoscopic Approach (ICD-10-PCS; principal; 2017-07-15 12:30)
PROC: 0DB Gastrointestinal System, Excision (ICD-10-PCS; principal; 2017-07-15 12:30)
PROC: 3E1M38Z Irrigation of Peritoneal Cavity using Irrigating Substance, Percutaneous Approach (ICD-10-PCS; 2017-07-19)
PROC: 0DJ08ZZ Inspection of Upper Intestinal Tract, Via Natural or Artificial Opening Endoscopic (ICD-10-PCS; 2017-07-19)
PROC: 0DBE0ZZ Excision of Large Intestine, Open Approach (ICD-10-PCS; 2017-07-19)
PROC: 0D1B0Z4 Bypass Ileum to Cutaneous, Open Approach (ICD-10-PCS; 2017-07-19)
DX: C18.6 Malignant neoplasm of descending colon (principal); K65.0 Generalized (acute) peritonitis; K66.8 Other specified disorders of peritoneum; K50.10 Crohn's disease of large intestine without complications; E66.01 Morbid (severe) obesity due to excess calories; K56.7 Ileus, unspecified; I11.9 Hypertensive heart disease without heart failure; N13.8 Other obstructive and reflux uropathy; E86.0 Dehydration; F17.200 Nicotine dependence, unspecified, uncomplicated; I25.10 Atherosclerotic heart disease of native coronary artery without angina pectoris; J44.9 Chronic obstructive pulmonary disease, unspecified; K21.9 Gastro-esophageal reflux disease without esophagitis; K57.30 Diverticulosis of large intestine without perforation or abscess without bleeding; N40.1 Benign prostatic hyperplasia with lower urinary tract symptoms; Z68.35 Body mass index [BMI] 35.0-35.9, adult; Z79.899 Other long term (current) drug therapy; Z80.0 Family history of malignant neoplasm of digestive organs; Z79.891 Long term (current) use of opiate analgesic
CPT/HCPCS: 36415; 71046; 74177; 80048; 80053; 82378; 82728; 83540; 83550; 83735; 84100; 84484; 85025; 85610; 86850; 86900; 86901; 87070; 87075; 87205; 88307; 88309; 93005; 93970

== ENCOUNTER → 2018-06-17 | Outpatient (CLI) | payer BC ==
--- NOTE | 2018-06-17 11:00 | ECHOS ---
STRESS ECHOCARDIOGRAM INDICATIONS: Preoperative. MEDICATIONS: None. BASELINE HEART RATE: 77 BASELINE BLOOD PRESSURE: 122/73 MAXIMUM HEART RATE: 148 MAXIMUM BLOOD PRESSURE: 168/76 85% MPHR: 135 100% MPHR: 159 METS: 7.0 MAXIMUM STAGE REACHED: 2 TOTAL EXERCISE TIME: 6:00 CLINICAL INFORMATION: Patient was exercised for a total period of 6 minutes. The peak heart rate of 148 was achieved, maximum blood pressure of 168/76 mmHg was noted. Patient did not complain of any chest pain during the test, resting EKG shows normal sinus rhythm with normal VA interval and QRS duration and normal ST-T waves no ST-segment depression suggestive of ischemia was noted. The baseline echocardiogram reveals normal left ventricular chamber size with a normal left ventricular systolic function in the immediate postexercise. Normal increase in the wall thickness and contractility is noted. FINAL IMPRESSION: This stress echocardiographic study is negative for stress-induced ischemia., EKG portion of the stress test is not suggestive of ischemia. Patient's exercise tolerance is normal. MMODL / IJN: [id number] /
== END | disposition home or self-care (01) ==
LOC: RADNMMAIN 08:42
PROVIDERS: ATTEND Family Medicine
DX: R94.31 Abnormal electrocardiogram [ECG] [EKG] (principal)
CPT/HCPCS: 93351; Q9950

== ENCOUNTER → 2018-07-11 | Outpatient (CLI) | payer BC ==
--- NOTE | 2018-07-11 18:20 | CT ---
EXAMINATION TYPE: CT abdomen pelvis wo con DATE OF EXAM: 07/11/2018 HISTORY: lower anterior abdominal pain per technologist. Dysuria for [address] DLP: 945 mGycm. Automated Exposure Control for Dose Reduction was Utilized. TECHNIQUE: CT scan of the abdomen and pelvis is performed without oral or IV contrast. COMPARISON: CT abdomen and pelvis July 23, 2017 FINDINGS: Within the limitations of a non-contrast study, the following observations are made. LUNG BASES: There is persistent patchy bibasilar linear scarring and/or atelectasis. LIVER/GB: Liver remains diffusely low dense suggesting mild diffuse fatty infiltration PANCREAS: Single calcification near mid pancreatic body axial image 43 is redemonstrated. SPLEEN: No significant abnormality is seen. ADRENALS: No significant abnormality is seen. KIDNEYS: There is 2 mm calculus mid pole level left kidney coronal image 50. There is hyperdense lowe r pole left renal parametric coronal image 48. No hydronephrosis or obstructing ureter calculi are cl early seen. Bladder is poorly distended with mild to moderate abnormal wall thickening up to 13 mm le ft anterior aspect axial image 121 BOWEL: Evaluation bowel is suboptimal secondary to lack of enteric contrast. Diverticula are seen in the sigmoid colon with surgical sutures near junction of left and sigmoid colon terminal ileum is fel t within normal limits there is no suspicious small or large bowel dilatation. There is ill-defined f luid and fat stranding throughout the pelvis including involvement to a lesser degree in the left low er quadrant and left infracolic gutter. There is right mid abdominal ostomy with parastomal hernia. GENITAL ORGANS: No gross abnormality seen. LYMPH NODES: No greater than 1cm abdominal or pelvic lymph nodes are appreciated. OSSEOUS STRUCTURES: There is vacuum disc phenomenon with moderate disc space narrowing L5-S1 level. OTHER: There is persistent anterior vertical scar extending above and below umbilicus. There are smal l to moderate-sized fat-containing left inguinal hernia. IMPRESSION: 1. Moderate to severe inflammatory change throughout the pelvis could reflect product of acute enteri tis and/or diverticulitis given bowel loops are noted at this level. No well-formed fluid collection or drainable abscess is seen. In addition underlying bladder infection or acute cystitis is suspected especially given patient history as there is abnormal bladder wall thickening noted.
== END | disposition home or self-care (01) ==
LOC: RADCTMAIN 17:06
PROVIDERS: ATTEND Nurse Practitioner Adult Health
DX: R10.9 Unspecified abdominal pain (principal); Z12.5 Encounter for screening for malignant neoplasm of prostate
CPT/HCPCS: 74176

== ENCOUNTER → 2024-03-03 | Outpatient (CLI) | payer MEDICARE ==
--- NOTE | 2024-03-03 15:36 | US ---
EXAMINATION TYPE: US kidneys/renal and bladder DATE OF EXAM: 03/03/2024 COMPARISON: CT 07/11/2018 CLINICAL INDICATION: Male, 68 years old with history of R31.0 GROSS HEMATURIA; Gross hematuria, inte rmittent x 2-3 months; Urinary frequency with dysuria and burning with urination; Hx Colon cancer' Pa tient denies any other signs, symptoms, or relevant history TECHNIQUE: Grayscale imaging of the bilateral kidneys and urinary bladder: FINDINGS: EXAM MEASUREMENTS: Right Kidney: 12.5 x 6.6 x 6.4 cm Left Kidney: 12.9 x 6.7 x 6.1 cm Post Void Residual Volume: NA mL Right Kidney: Multiple echogenic areas with minimal posterior shadowing and no color twinkle Left Kidney: Multiple echogenic areas with minimal posterior shadowing and no color twinkle Bladder: Focal thickening Bilateral Jets seen: Yes Normal Post Void Residual: NA There is no evidence for hydronephrosis at this point in time. No masses are identified. Urinary anila dder demonstrates focal thickening along the nondependent portion. IMPRESSION: 1. Bladder wall focal thickening concerning for malignancy. Visualization or CT urogram for confirma tion recommended. 2. No evidence for obstructive uropathy. 3. Bilateral renal calculi suggested. Attention follow-up CT. [facility], , 03/03/2024 3:34 PM
== END | disposition home or self-care (01) ==
LOC: RADUSWWP 13:46
PROVIDERS: ATTEND Family Medicine
DX: N32.89 Other specified disorders of bladder (principal); R30.0 Dysuria; R35.0 Frequency of micturition
CPT/HCPCS: 76770

== ENCOUNTER → 2024-04-21 | Outpatient (CLI) | payer MEDICARE ==
[2024-04-21 16:13] LABS: Basophils # (A) 0.06 X 10*3/uL (0.00-0.10); Basophils % (A) 0.8 %; Eosinophils % (A) 1.3 %; HCT 51.2 % (39.6-50.0); HGB 17.4 g/dL (13.0-17.0); Lymphocytes # (A) 1.41 X 10*3/uL (0.90-5.00); MCH 29.6 pg (27.0-32.0); MCV 87.1 FL (80.0-97.0); Mean Platelet Volume 11.8 FL (9.5-12.2); Monocytes # (A) 0.74 X 10*3/uL (0.20-1.00); NRBC Per 100 WBC 0 X 10*3/uL (0.00-0.01); Neutrophils # (A) 5.09 X 10*3/uL (1.80-7.70); Neutrophils % (A) 68.8 %; Platelet Count 189 X 10*3/uL (140-440); RBC 5.88 X 10*6/uL (4.40-5.60); RDW 13.2 % (11.5-14.5); WBC 7.41 X 10*3/uL (4.50-10.00)
[2024-04-21 16:23] LABS: Blood Urea Nitrogen 10.1 mg/dL (9.0-27.0); Calcium 9.6 mg/dL (8.7-10.3); Carbon Dioxide 24.7 mmol/L (21.6-31.8); Chloride 103 mmol/L (96-109); Glucose 102 mg/dL (70-110); Potassium 4.5 mmol/L (3.5-5.5); Sodium 138 mmol/L (135-145)
[2024-04-21 16:34] LABS: Appearance,Urine Clear (Clear); Bilirubin,Urine Negative (Negative); Blood,Urine Moderate (Negative); Color,Urine Yellow (Yellow); Ketones,Urine Negative (Negative); Nitrite,Urine Negative (Negative); Specific Gravity,Urine 1.007 (1.001-1.030); Urobilinogen,Urine 0.2 E.U./DL
[2024-04-21 16:47] LABS: Bacteria,Urine None Seen (None Seen)
== END | disposition home or self-care (01) ==
LOC: LABWHC1 09:53
PROVIDERS: ATTEND Urology
DX: C67.9 Malignant neoplasm of bladder, unspecified (principal)
CPT/HCPCS: 36415; 80048; 81001; 85025; 87086